=== PATIENT | female | born 1985 | race Caucasian/White ===

== ENCOUNTER 2017-09-23 12:38 | Inpatient (IN) ==
[2017-09-23] MEDS ORDERED: Td (TENIVAC) Vaccine 0.5 ML VIAL IM ONE (13:05)
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
[2017-09-23 13:36] LABS: Bilirubin,Urine Negative (Negative); Blood,Urine Negative (Negative); Clarity,Urine Cloudy (Clear); Color,Urine Yellow (Yellow); Glucose,Urine (UA) Normal (Normal); Ketones,Urine Negative (Negative); Leukocyte Esterase,Urine Small (Negative); Nitrite,Urine Negative (Negative); Protein,Urine Negative (Neg-Trace); Specific Gravity,Urine 1.023 (1.010-1.025); Urobilinogen,Urine Normal (Normal)
[2017-09-23 13:38] LABS: Bacteria,Urine Moderate per hpf (None-Few); Hyaline Casts,Urine None Seen per lpf (None-Few); RBC,Urine 0-3 per hpf (0-3); Squamous Epithelial Cell,Urine Many per lpf (None-Few)
[2017-09-23 13:40] LABS: Amphetamine Screen,Urine Negative ng/mL (Cutoff=1000); Barbiturate Screen,Urine Negative ng/mL (Cutoff=200); Benzodiazepines Screen,Urine Positive ng/mL (Cutoff=200); Cannabinoid Screen,Urine Negative ng/mL (Cutoff = 50); Cocaine Screen,Urine Negative ng/mL (Cutoff= 300); Opiate Screen,Urine Negative ng/mL (Cutoff=300); Phencyclidine Screen,Urine Negative ng/mL (Cutoff=25)
[2017-09-23 13:53] LABS: BUN/Creatinine Ratio 20 (6-26); Basophils # 0.1 K/mcL (0.0-0.2); Basophils % 0.9 %; Blood Urea Nitrogen 12 mg/dL (6-20); Calcium 9.2 mg/dL (8.6-10.3); Carbon Dioxide 23 mEq/L (23-29); Chloride 108 mEq/L (98-107); Eosinophils # 0.2 K/mcL (0.0-0.6); Eosinophils % 2.3 %; Glucose 112 mg/dL (70-105); Hematocrit 41.3 % (35.3-44.9); Immature Granulocytes % 0.2 % (0-4); Lymphocytes # 2.6 K/mcL (0.6-4.6); Lymphocytes % 29.9 %; Mean Corpuscular HGB Conc 33.9 g/dL (31.6-35.5); Mean Corpuscular Hemoglobin 31.4 pg (28.0-33.3); Mean Corpuscular Volume 92.6 fL (83.0-100.0); Mean Platelet Volume 10.4 fL (9.4-12.4); Monocytes # 0.4 K/mcL (0.0-1.3); Monocytes % 4.9 %; Neutrophils # 5.3 K/mcL (1.6-8.9); Osmolality,Calculated 287 (280-300); Platelet Count 295 K/mcL (140-400); Potassium 3.6 mEq/L (3.5-5.1); Red Blood Count 4.46 M/mcL (3.82-4.97); Segmented Neutrophils % 61.8 %; Sodium 138 mEq/L (136-145); eGFR For African Americans > 60 (> 60); eGFR For Non-African Americans > 60 (> 60)
[2017-09-23 13:59] LABS: Acetaminophen < 1.0 mcg/mL (10-30); Ethanol < 10 mg/dL (0-10); Salicylate < 5.0 mg/dL (15.0-30.0)
[2017-09-23 14:13] LABS: Thyroid Stimulating Hormone 1.652 mcIU/mL (0.340-5.600)
[2017-09-23] MEDS ORDERED: *HR* LORazepam 0.5 MG TABLET PO ONE (16:52)
[2017-09-23] MEDS ORDERED: traZODone 50 MG TABLET PO PRN (21:52)
[2017-09-23] MEDS ORDERED: MOM Conc 10 ML UD.LIQ PO PRN (21:52)
[2017-09-23] MEDS ORDERED: *HR* LORazepam 1 MG TABLET PO PRN (21:52)
[2017-09-23] MEDS ORDERED: Mag Hydrox/Al Hydrox/Simeth 30 ML UDC PO PRN (21:52)
[2017-09-23] MEDS ORDERED: *HR* LORazepam 2 MG/ML VIAL IM PRN (21:52)
[2017-09-23] MEDS ORDERED: Haloperidol Lactate 5 MG/ML VIAL IM PRN (21:52)
[2017-09-24] MEDS: Ibuprofen 400 MG TABLET PO PRN ×2 (07:06→11:35)
[2017-09-24] MEDS: Nicotine 14 MG PATCH.TD24 TD SCH (09:38)
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
[2017-09-24] MEDS ORDERED: Neosporin OINT 15 GM TUBE TP PRN (21:30)
[2017-09-24] MEDS: hydrOXYzine pamoate 25 MG CAPSULE PO PRN (22:08)
[2017-09-25] MEDS: Nicotine 14 MG PATCH.TD24 TD SCH (08:32)
--- NOTE | 2017-09-25 11:52 | Psychiatry Progress Note ---
Date of Encounter: 09/25/17 Time of Encounter: 11:00 Subjective Interval history: When I interviewed the patient she stated that she did get some sleep last night , but also had nightmares. She said the thing that was different this time with the Seroqeul, was after she woke up from a nightmare that she can go back to sleep within 10 to 15 minutes. "I got more sleep than I normally get". She did not feel too sedated when she woke up this morning was able to function without issue. She also took some Vistaril which helped with her anxiety. According to the patient, she took the regularly scheduled Seroqeul 25 mg last night and also take the extra 25 mg PRN which helped her to sleep. She would like to regularly schedule 50 mg at night to see if that continues to help. She stated that she still feeling depressed and has low energy but has no active thoughts of cutting on herself. She denies any auditory or visual hallucinations. She reports "my cutting is real bad". She is wearing a shirt that completely exposes her bilateral forearms. There are superficial cuts in various stages of healing but no signs of infection. I discussed with her after having reviewed previous reports and documentation that when she stopped the Lexapro, it she was only at 10 mg. I explained to her that the dose could have been doubled up to 20mg. Historically the Lexapro did help when she first got started on it and probably should have been increased to 20 instead of stopping it altogether. She was agreeable to restarting the Lexapro 10 mg to see if it helped again, and then taking it up to 15 or 20 mg once she stabilized and saw that she was without side effects. She denied any active suicidal or homicidal ideation. Objective: Exam Patient orientation: Yes Person, Yes Place, Yes Circumstance Level of alertness: Alert Patient appearance: Appropriate, Well Groomed, Well-nourished Additional observations: Smiling and laughing with someone on the phone prior to interview with me Behavior: anxious (mildly) Psychomotor activity: Normal Eye contact: Maintains Eye Contact Mood description: Depressed Affect description: congruent with mood Speech pattern: Normal rate, Normal rhythm, Normal tone, Appropriate Speech volume: Normal Thought process: Intact, Linear Thought content: Yes Intact Judgment: Fair Insight: Partial Results - Vital Signs Vital Signs: Temp Pulse Resp BP Pulse Ox 97.9 F 81 14 102/68 97 09/25/17 09:00 09/25/17 09:00 09/25/17 09:00 09/25/17 09:00 09/23/17 12:54 Assessment and Plan (1) Post traumatic stress disorder (PTSD) Current visit: Yes Status: Acute Risks, benefits, side effects, alternatives discussed w/pt: Yes Patient agreeable to treatment: Yes (2) Depression Current visit: No Status: Acute Plan: Continue hospitalization, Close observation, Suicide Precautions per unit protocol, Encourage participation in unit milieu, Group Therapy, Monitor sleep, Monitor appetite Risks, benefits, side effects, alternatives discussed w/pt: Yes (Restart Lexapro for mood) Patient agreeable to treatment: Yes Qualifiers: Depression Type: major depressive disorder Major depression recurrence: recurrent Active/Remission status: currently active Major depression episode severity: severe Psychotic features: without psychotic features Qualified Code(s): F33.2 - Major depressive disorder, recurrent severe without psychotic features Consult Discharge Plan - Plan Referrals: [facility] [Outside] - 10/08/17 11:00 am (The above appointment is with Pippa Khan for outpatient mental health counseling services. You will also see Nasra Moreira on 10/29/17 at 10:00am for outpatient psychiatric assessment and meedication management services.)
[2017-09-25] MEDS: hydrOXYzine pamoate 25 MG CAPSULE PO PRN (20:50)
[2017-09-25] MEDS: Ibuprofen 400 MG TABLET PO PRN (22:17)
[2017-09-26] MEDS: Nicotine 14 MG PATCH.TD24 TD SCH (08:32)
--- NOTE | 2017-09-26 09:03 | Psychiatry Progress Note ---
Date of Encounter: 09/26/17 Time of Encounter: 08:55 Subjective Interval history: Patient tells me that she is nervous today. She states that being the only female on the unit makes her feel very anxious and increases her vigilance. She does not feel safe currently. I asked her if something happened on the unit or if anybody said something to her or behaved inappropriately towards her , and she stated "no, just I do not like being the only female on the unit". She took her Seroquel last night. She said it took some time to fall asleep, but she did finally and got at least 6 hours. She is taking her Lexapro and denies any adverse side effects. She still is feeling depressed as well as anxious, but denies any auditory or visual hallucinations. She denies any thoughts of self-harm behavior. I discussed with her talking to the treatment team and potentially getting some individualized treatment for her that was not in a group with the men on the unit as well as potentially moving male patients down the one long hallway so that should she would be the only patient down the shorter hallway which might make her feel more safe. She stated she would appreciate that it was possible. Objective: Exam Patient orientation: Yes Person, Yes Time, Yes Place, Yes Circumstance Level of alertness: Sedated Patient appearance: Appropriate Additional observations: Sitting on the chair in my office with legs drawn up to her chest and her fingers of right hand covering her mouth. Very protective positioning and body posture. Behavior: anxious, guarded Psychomotor activity: Normal Eye contact: Maintains Eye Contact Mood description: Anxious Patient description of mood: nervous Affect description: congruent with mood, constricted Speech pattern: Normal rate, Normal rhythm, Normal tone Speech volume: Normal Thought process: Intact, Linear Thought content: Yes Intact Judgment: Fair Insight: Partial Results - Vital Signs Vital Signs: Temp Pulse Resp BP Pulse Ox 98 F 69 16 106/73 97 09/26/17 08:47 09/26/17 08:47 09/26/17 08:47 09/26/17 08:47 09/23/17 12:54 Assessment and Plan (1) Post traumatic stress disorder (PTSD) Current visit: Yes Status: Acute Plan: Continue hospitalization, Close observation, Encourage participation in unit milieu, Group Therapy, Monitor sleep Risks, benefits, side effects, alternatives discussed w/pt: Yes (continue currrent medications as written) Patient agreeable to treatment: Yes (2) Depression Current visit: No Status: Acute Plan: Continue hospitalization, Close observation, Suicide Precautions per unit protocol, Encourage participation in unit milieu, Group Therapy, Monitor sleep Risks, benefits, side effects, alternatives discussed w/pt: Yes (Restart Lexapro for mood) Patient agreeable to treatment: Yes Qualifiers: Depression Type: major depressive disorder Major depression recurrence: recurrent Active/Remission status: currently active Major depression episode severity: severe Psychotic features: without psychotic features Qualified Code(s): F33.2 - Major depressive disorder, recurrent severe without psychotic features Consult Discharge Plan - Plan Referrals: [facility] [Outside] - 10/08/17 11:00 am (The above appointment is with Pippa Khan for outpatient mental health counseling services. You will also see Nasra Moreira on 10/29/17 at 10:00am for outpatient psychiatric assessment and meedication management services.)
[2017-09-26] MEDS: Ibuprofen 400 MG TABLET PO PRN (11:42)
[2017-09-26] MEDS: hydrOXYzine pamoate 25 MG CAPSULE PO PRN (11:42)
[2017-09-27] MEDS: Nicotine 14 MG PATCH.TD24 TD SCH (08:39)
[2017-09-27 08:47] VITALS: BP 122/88
[2017-09-27] MEDS: hydrOXYzine pamoate 25 MG CAPSULE PO PRN (11:54)
--- NOTE | 2017-09-27 13:16 | Discharge Summary ---
Date of Encounter: 09/27/17 Time of Encounter: 13:00 Diagnosis - Discharge Diagnosis (1) Post traumatic stress disorder (PTSD) Status: Acute (2) Depression Status: Acute Qualifiers: Depression Type: major depressive disorder Major depression recurrence: recurrent Active/Remission status: currently active Major depression episode severity: severe Psychotic features: without psychotic features Qualified Code(s): F33.2 - Major depressive disorder, recurrent severe without psychotic features Medications - Discharge Medications Prescriptions: Escitalopram [Lexapro] 10 mg PO DAILY 30 Days #30 tablet hydrOXYzine pamoate [HydrOXYzine Pamoate] 25 mg PO TID PRN 30 Days #50 capsule PRN Reason: Anxiety Quetiapine Fumarate [Seroquel] 50 mg PO HS 30 Days #30 tablet Escitalopram [Lexapro] 10 mg PO DAILY 30 Days #30 tablet 09/27/17 [Rx] Quetiapine Fumarate [Seroquel] 50 mg PO HS 30 Days #30 tablet 09/27/17 [Rx] hydrOXYzine pamoate [HydrOXYzine Pamoate] 25 mg PO TID PRN 30 Days #50 capsule 09/27/17 [Rx] 3 Allergy/AdvReac Type Severity Reaction Status Date / Time tramadol [From Ultram] Allergy See Verified 06/22/17 21:29 Comments propoxyphene AdvReac Vomiting Verified 06/22/17 21:29 [From Darvocet-N] Provider Date of admission: 09/23/17 17:39 Primary care physician: PCP NONE Assessment and Plan - Patient/Caregiver Discharge Instructions Activity: resume usual activities as tolerated Diet: regular diet - Follow up Plan Follow up with: [facility] [Outside] - 10/08/17 11:00 am (The above appointment is with Pippa Khan for outpatient mental health counseling services. You will also see Nasra Moreira on 10/29/17 at 10:00am for outpatient psychiatric assessment and meedication management services.) Functional capacity at discharge: independent ambulation Overall status at discharge: Stable Disposition: Home, Self-Care Hospital Course Hospital course: Ms. Chen is a 32 year old female who was admitted via the emergency department for cutting on herself and having thoughts of suicide. Patient had stopped taking her medication secondary to feeling like they weren't effective. She has been decompensating over the previous couple of months since stopping them. She was restarted on Lexapro 10 mg PO Q day targeting her anxiety and her depression. She is having great deal of difficulty sleeping, experiencing anxiety and nightmares. She consented to starting Seroquel to help with her sleep, nervousness and anxiety. Early on, she isolated quite a bit her room secondary to being nervous around people on the unit. She did not feel safe at times, slowly adapted to the unit and starting to relax more and feel better on the medications. Her Seroquel was titrated up 100 mg PO Q HS. She had a few visits with her father and sister while on the unit and this made her feel much better. On the day of discharge, she stated I'm feeling a lot better today". She states that she had slept well the night before and got a whole 8 hours of sleep without waking up, no nightmares. She had taken some Benadryl to help with sleep and also possible akathisia from the Seroquel. She denied any suicidal/homicidal ideation. She denied any auditory or visual hallucinations. She stated her mood was stable she felt like she had energy; "feel like doing things again.... moving on with life". She states that she was feeling a little bit anxious about discharging, but was hopeful and would continue on her medications do outpatient follow-up schedule. Time spent discussing smoking cessation with patient: 3 to 10 minutes Does patient wish to continue nicotine replacement upon disc: No - Time Spent with Patient Total time spent providing and/or coordinating discharge services: 20 min Less than 30 minutes Quality - Multiple Antipsychotics Patient discharged on 2 or more antipsychotic medications: No Procedures - Procedures Procedures: Medication Management, Crisis Stabilization, Supportive Therapy, Group Therapy, Psychoeducational Therapy Mental Status Exam - Mental Status Exam Patient orientation: Yes Person, Yes Time, Yes Place, Yes Circumstance Level of alertness: Alert Patient appearance: Appropriate, Well Groomed Additional observations: Smiling Behavior: calm Psychomotor activity: Normal Eye contact: Maintains Eye Contact Mood description: Euthymic/stable Affect description: congruent with mood Speech pattern: Normal rate, Normal rhythm, Normal tone Speech Volume: Normal Thought process: Intact, Logical, Linear, Goal Oriented Thought Content: Yes Intact Judgment: Good Insight: Full
== END 2017-09-27 14:20 | disposition home or self-care (01) | DRG 755 ==
LOC: EMEROO 12:38 → 1ANU 17:39
PROVIDERS: ADMIT Psychiatry & Neurology Psychiatry; ATTEND Psychiatry & Neurology Psychiatry

== ENCOUNTER 2017-12-09 15:46 | Inpatient (IN) ==
--- NOTE | 2017-12-09 15:54 | Emergency Department Note ---
Disposition Clinical Impression: Suicidal ideation Disposition: Admitted As Inpatient Condition: Good Referrals: NONE,PCP [Non-Partnered Physician] - Forms: ED Satisfaction Letter Time of Disposition: 18:35 General Adult HPI - General Stated complaint: SI Time Seen by Provider: 12/09/17 15:53 Nursing Notes Reviewed: Yes Vital Signs Reviewed: Yes - History of Present Illness HPI Narrative: Female patient complaining of suicidal ideations. She does not have a plan. She has no other complaints at this time. Has been off her psych meds that she is unaware of the name of for the past 3 days. She is hearing voices that are telling her to hurt herself. - Related Data Previous Rx's Medication Instructions Recorded Escitalopram [Lexapro] 10 mg PO DAILY 30 Days #30 tablet 09/27/17 Quetiapine Fumarate [Seroquel] 50 mg PO HS 30 Days #30 tablet 09/27/17 hydrOXYzine pamoate [HydrOXYzine 25 mg PO TID PRN 30 Days #50 09/27/17 Pamoate] capsule Albuterol Sulfate [Albuterol 2 puff IH Q4HR PRN #1 hfa.aer.ad 12/09/17 Inhaler] predniSONE [PredniSONE] 40 mg PO DAILY #10 tablet 12/09/17 Allergies Allergy/AdvReac Type Severity Reaction Status Date / Time tramadol [From Ultram] Allergy See Verified 06/22/17 21:29 Comments propoxyphene AdvReac Vomiting Verified 06/22/17 21:29 [From Darvocet-N] All systems ED: reviewed and negative except as stated. Constitutional: Denies: fever, chills Cardiovascular: Denies: chest pain, syncope Respiratory: Denies: dyspnea Gastrointestinal: Denies: abdominal pain, nausea, vomiting, diarrhea Genitourinary: Denies: urgency, dysuria, frequency Psychiatric: Reports: suicidal thoughts, auditory hallucinations. Denies: homicidal thoughts, visual hallucinations Past Medical History - Past Medical History Attestation: Yes The following information was validated with the patient. Source: patient Medical history: Reports: arthritis Surgical history: Reports: , other Psychiatric history: Reports: anxiety, depression, prior suicide attempt, previous psychiatric hospitalization [employer] history: Reports: bilateral tubal ligation - Social History Smoking Status: Current some day smoker Smokeless Tobacco Status: No Alcohol use: Reports: rarely Drug use: Reports: marijuana, other Physical Exam - General Limitations: no limitations General appearance: alert, in no apparent distress - Head Head exam: atraumatic, normocephalic, normal inspection - Eye Eye exam: Present: normal appearance, PERRL, EOMI - ENT ENT exam: normal exam, mucous membranes moist - Neck Neck exam: Present: normal inspection, full ROM, trachea midline - Chest Chest inspection: Present: normal inspection, symmetric chest wall rise - Respiratory Respiratory exam: Present: normal lung sounds bilaterally. Absent: respiratory distress - Cardiovascular Cardiovascular exam: Present: regular rate, normal rhythm, normal heart sounds - Abdominal Exam Abdominal exam: Present: soft, Non-Tender. Absent: organomegaly - Extremities Exam Extremities exam: Present: normal inspection, full ROM, normal capillary refill. Absent: tenderness, pedal edema - Back Exam Back exam: Present: normal inspection, full ROM. Absent: tenderness - Neurological Exam Neurological exam: Present: alert, oriented X3 - Psychiatric Psychiatric exam: Present: suicidal ideation. Absent: homicidal ideation - Skin Skin exam: Present: warm, dry, intact, normal color Course Course Narrative: Female patient presenting to emergency complaining of hearing voices are telling her to kill herself. She does have a psychiatric history and is supposed to be on psychiatric medication she does not know what medication as she has not been taking it for the past 3 days. She states that it Does not help her. She has no other complaints at this time. She states that she was seen here earlier for shortness of breath however she is not short of breath at this time after she went home she got very anxious and has been she started hearing voices. She denies any visual hallucinations. She denies any homicidal ideations. We will get screening labs and have 1A evaluate her. - Reevaluation(s) Reevaluation #1: She will be admitted to the hospital. She is still pink slipped. Time: 18:34 Vital Signs Temperature 98.3 F 12/09/17 16:05 Pulse Rate 101 12/09/17 16:05 Respiratory Rate 18 12/09/17 16:05 Blood Pressure 152/99 12/09/17 16:05 O2 Sat by Pulse Oximetry 98 12/09/17 16:05 Temperature 98.3 F 12/09/17 16:05 Pulse Rate 101 12/09/17 16:05 Respiratory Rate 18 12/09/17 16:05 Blood Pressure 152/99 12/09/17 16:05 O2 Sat by Pulse Oximetry 98 12/09/17 16:05 Oxygen Delivery Oxygen Delivery Room Air Medical Decision Making - Medical Records Medical records reviewed: Yes I reviewed the patient's medical records. - Lab Data Lab results reviewed: Yes I reviewed the patient's lab results. Result diagrams: 12/09/17 16:07 12/09/17 16:07 Lab Results 12/09/17 12/09/17 12/09/17 Range/Units 15:57 15:57 16:07 WBC 9.0 (4.3-11.1) K/mcL RBC 4.77 (3.82-4.97) M/mcL Hgb 14.4 (11.5-15.4) g/dL Hct 42.6 (35.3-44.9) % MCV 89.3 (83.0-100.0) fL MCH 30.2 (28.0-33.3) pg MCHC 33.8 (31.6-35.5) g/dL RDW 11.8 (11.5-14.5) % Plt Count 310 (140-400) K/mcL MPV 10.1 (9.4-12.4) fL Immature Gran % 0.3 (0-4) % Seg Neutrophils % 87.5 % Lymphocytes % 10.6 % Monocytes % 1.3 % Eosinophils % 0.0 % Basophils % 0.3 % Neutrophils # 7.9 (1.6-8.9) K/mcL Lymphocytes # 1.0 (0.6-4.6) K/mcL Monocytes # 0.1 (0.0-1.3) K/mcL Eosinophils # 0.0 (0.0-0.6) K/mcL Basophils # 0.0 (0.0-0.2) K/mcL Sodium (136-145) mEq/L Potassium (3.5-5.1) mEq/L Chloride (98-107) mEq/L Carbon Dioxide (23-29) mEq/L BUN (6-20) mg/dL Creatinine (0.60-1.20) mg/dL Est GFR ( Amer) (> 60) Est GFR (Non-Af Amer) (> 60) BUN/Creatinine Ratio (6-26) Glucose (70-105) mg/dL Calculated Osmolality (280-300) Calcium (8.6-10.3) mg/dL Urine Color Yellow (Yellow) Urine Clarity Cloudy A (Clear) Urine pH 7.5 (5.0-8.0) pH Units Ur Specific [place] 1.011 (1.010-1.025) Urine Protein Negative (Neg-Trace) mg/dL Urine Glucose (UA) Normal (Normal) mg/dL Urine Ketones Negative (Negative) mg/dL Urine Blood Trace H (Negative) Urine Nitrite Negative (Negative) Urine Bilirubin Negative (Negative) Urine Urobilinogen Normal (Normal) mg/dL Ur Leukocyte Esterase Trace H (Negative) Urine Microscopic RBC 5-15 H (0-3) per hpf Urine Microscopic WBC 0-3 (0-3) per hpf Ur Squamous Epith Cells Many H (None-Few) per lpf Urine Bacteria None Seen (None-Few) per hpf Hyaline Casts None Seen (None-Few) per lpf Salicylates (15.0-30.0) mg/dL Urine Opiates Screen Negative (Lrsaob=920) ng/mL Acetaminophen (10-20) mcg/mL Ur Barbiturates Screen Negative (Hwjxkn=375) ng/mL Ur Phencyclidine Scrn Negative (Cutoff=25) ng/mL Ur Amphetamines Screen Negative (Ezjsme=8238) ng/mL U Benzodiazepines Scrn Negative (Zwraxc=537) ng/mL Urine Cocaine Screen Negative (Cutoff= 300) ng/mL U Marijuana (THC) Screen Negative (Cutoff = 50) ng/mL Ethyl Alcohol (Less than 10) mg/dL 12/09/17 Range/Units 16:07 WBC (4.3-11.1) K/mcL RBC (3.82-4.97) M/mcL Hgb (11.5-15.4) g/dL Hct (35.3-44.9) % MCV (83.0-100.0) fL MCH (28.0-33.3) pg MCHC (31.6-35.5) g/dL RDW (11.5-14.5) % Plt Count (140-400) K/mcL MPV (9.4-12.4) fL Immature Gran % (0-4) % Seg Neutrophils % % Lymphocytes % % Monocytes % % Eosinophils % % Basophils % % Neutrophils # (1.6-8.9) K/mcL Lymphocytes # (0.6-4.6) K/mcL Monocytes # (0.0-1.3) K/mcL Eosinophils # (0.0-0.6) K/mcL Basophils # (0.0-0.2) K/mcL Sodium 138 (136-145) mEq/L Potassium 3.5 (3.5-5.1) mEq/L Chloride 105 (98-107) mEq/L Carbon Dioxide 24 (23-29) mEq/L BUN 9 (6-20) mg/dL Creatinine 0.59 L (0.60-1.20) mg/dL Est GFR ( Amer) > 60 (> 60) Est GFR (Non-Af Amer) > 60 (> 60) BUN/Creatinine Ratio 15 (6-26) Glucose 119 H (70-105) mg/dL Calculated Osmolality 286 (280-300) Calcium 9.4 (8.6-10.3) mg/dL Urine Color (Yellow) Urine Clarity (Clear) Urine pH (5.0-8.0) pH Units Ur Specific [place] (1.010-1.025) Urine Protein (Neg-Trace) mg/dL Urine Glucose (UA) (Normal) mg/dL Urine Ketones (Negative) mg/dL Urine Blood (Negative) Urine Nitrite (Negative) Urine Bilirubin (Negative) Urine Urobilinogen (Normal) mg/dL Ur Leukocyte Esterase (Negative) Urine Microscopic RBC (0-3) per hpf Urine Microscopic WBC (0-3) per hpf Ur Squamous Epith Cells (None-Few) per lpf Urine Bacteria (None-Few) per hpf Hyaline Casts (None-Few) per lpf Salicylates < 2.5 L (15.0-30.0) mg/dL Urine Opiates Screen (Liovax=500) ng/mL Acetaminophen < 10 L (10-20) mcg/mL Ur Barbiturates Screen (Bindjx=752) ng/mL Ur Phencyclidine Scrn (Cutoff=25) ng/mL Ur Amphetamines Screen (Fkjguf=0834) ng/mL U Benzodiazepines Scrn (Aloizj=048) ng/mL Urine Cocaine Screen (Cutoff= 300) ng/mL U Marijuana (THC) Screen (Cutoff = 50) ng/mL Ethyl Alcohol < 10 (Less than 10) mg/dL
[2017-12-09 16:16] LABS: Bilirubin,Urine Negative (Negative); Blood,Urine Trace (Negative); Clarity,Urine Cloudy (Clear); Color,Urine Yellow (Yellow); Glucose,Urine (UA) Normal (Normal); Ketones,Urine Negative (Negative); Leukocyte Esterase,Urine Trace (Negative); Nitrite,Urine Negative (Negative); PH,Urine 7.5 pH Units (5.0-8.0); Protein,Urine Negative (Neg-Trace); Specific Gravity,Urine 1.011 (1.010-1.025); Urobilinogen,Urine Normal (Normal)
[2017-12-09 16:18] LABS: Bacteria,Urine None Seen per hpf (None-Few); Hyaline Casts,Urine None Seen per lpf (None-Few); Squamous Epithelial Cell,Urine Many per lpf (None-Few); WBC,Urine 0-3 per hpf (0-3)
[2017-12-09 16:20] LABS: Basophils % 0.3 %; Hematocrit 42.6 % (35.3-44.9); Hemoglobin 14.4 g/dL (11.5-15.4); Immature Granulocytes % 0.3 % (0-4); Lymphocytes % 10.6 %; Mean Corpuscular HGB Conc 33.8 g/dL (31.6-35.5); Mean Corpuscular Hemoglobin 30.2 pg (28.0-33.3); Mean Corpuscular Volume 89.3 fL (83.0-100.0); Mean Platelet Volume 10.1 fL (9.4-12.4); Monocytes # 0.1 K/mcL (0.0-1.3); Monocytes % 1.3 %; Neutrophils # 7.9 K/mcL (1.6-8.9); Platelet Count 310 K/mcL (140-400); Red Blood Count 4.77 M/mcL (3.82-4.97); Red Cell Distribution Width 11.8 % (11.5-14.5); Segmented Neutrophils % 87.5 %
[2017-12-09 16:29] LABS: Amphetamine Screen,Urine Negative ng/mL (Cutoff=1000); Barbiturate Screen,Urine Negative ng/mL (Cutoff=200); Benzodiazepines Screen,Urine Negative ng/mL (Cutoff=200); Cannabinoid Screen,Urine Negative ng/mL (Cutoff = 50); Cocaine Screen,Urine Negative ng/mL (Cutoff= 300); Opiate Screen,Urine Negative ng/mL (Cutoff=300); Phencyclidine Screen,Urine Negative ng/mL (Cutoff=25)
[2017-12-09 16:38] LABS: Acetaminophen < 10 mcg/mL (10-20)
[2017-12-09 16:42] LABS: BUN/Creatinine Ratio 15 (6-26); Blood Urea Nitrogen 9 mg/dL (6-20); Calcium 9.4 mg/dL (8.6-10.3); Carbon Dioxide 24 mEq/L (23-29); Chloride 105 mEq/L (98-107); Ethanol < 10 mg/dL (Less than 10); Glucose 119 mg/dL (70-105); Osmolality,Calculated 286 (280-300); Potassium 3.5 mEq/L (3.5-5.1); Salicylate < 2.5 mg/dL (15.0-30.0); Sodium 138 mEq/L (136-145); eGFR For African Americans > 60 (> 60); eGFR For Non-African Americans > 60 (> 60)
--- NOTE | 2017-12-09 17:11 | Emergency Department Note ---
Disposition Clinical Impression: Acute psychosis, Suicidal ideation Disposition: Admitted As Inpatient Condition: Fair Referrals: NONE,PCP [Primary Care Provider] - Forms: ED Satisfaction Letter Time of Disposition: 18:35 General Adult HPI - General Chief complaint: ED Psychiatric Symptoms Stated complaint: SI Time Seen by Provider: 12/09/17 15:53 Source: patient Limitations: no limitations - History of Present Illness Pain Scale: 7 - Related Data Previous Rx's Medication Instructions Recorded Albuterol Sulfate [Albuterol 2 puff IH Q4HR PRN #1 hfa.aer.ad 12/09/17 Inhaler] predniSONE [PredniSONE] 40 mg PO DAILY #10 tablet 12/09/17 Allergies Allergy/AdvReac Type Severity Reaction Status Date / Time tramadol [From Ultram] Allergy See Verified 12/09/17 18:21 Comments propoxyphene AdvReac Vomiting Verified 12/09/17 18:21 [From Darvocet-N] Past Medical History - Past Medical History Medical history: Reports: arthritis Surgical history: Reports: , other Psychiatric history: Reports: anxiety, depression, prior suicide attempt, previous psychiatric hospitalization [employer] history: Reports: bilateral tubal ligation - Social History Smoking Status: Current some day smoker Smokeless Tobacco Status: No Alcohol use: Reports: rarely Drug use: Reports: marijuana, other Physical Exam - General Limitations: no limitations General appearance: alert Course Vital Signs Temperature 98.3 F 12/09/17 16:05 Pulse Rate 101 12/09/17 16:05 Respiratory Rate 18 12/09/17 16:05 Blood Pressure 152/99 12/09/17 16:05 O2 Sat by Pulse Oximetry 98 12/09/17 16:05 Temperature 98.3 F 12/09/17 16:05 Pulse Rate 101 12/09/17 16:05 Respiratory Rate 18 12/09/17 16:05 Blood Pressure 152/99 12/09/17 16:05 O2 Sat by Pulse Oximetry 98 12/09/17 16:05 Oxygen Delivery Oxygen Delivery Room Air Medical Decision Making - Lab Data Result diagrams: 12/09/17 16:07 12/09/17 16:07 Lab Results 12/09/17 12/09/17 12/09/17 Range/Units 15:57 15:57 16:07 WBC 9.0 (4.3-11.1) K/mcL RBC 4.77 (3.82-4.97) M/mcL Hgb 14.4 (11.5-15.4) g/dL Hct 42.6 (35.3-44.9) % MCV 89.3 (83.0-100.0) fL MCH 30.2 (28.0-33.3) pg MCHC 33.8 (31.6-35.5) g/dL RDW 11.8 (11.5-14.5) % Plt Count 310 (140-400) K/mcL MPV 10.1 (9.4-12.4) fL Immature Gran % 0.3 (0-4) % Seg Neutrophils % 87.5 % Lymphocytes % 10.6 % Monocytes % 1.3 % Eosinophils % 0.0 % Basophils % 0.3 % Neutrophils # 7.9 (1.6-8.9) K/mcL Lymphocytes # 1.0 (0.6-4.6) K/mcL Monocytes # 0.1 (0.0-1.3) K/mcL Eosinophils # 0.0 (0.0-0.6) K/mcL Basophils # 0.0 (0.0-0.2) K/mcL Sodium (136-145) mEq/L Potassium (3.5-5.1) mEq/L Chloride (98-107) mEq/L Carbon Dioxide (23-29) mEq/L BUN (6-20) mg/dL Creatinine (0.60-1.20) mg/dL Est GFR ( Amer) (> 60) Est GFR (Non-Af Amer) (> 60) BUN/Creatinine Ratio (6-26) Glucose (70-105) mg/dL Calculated Osmolality (280-300) Calcium (8.6-10.3) mg/dL Urine Color Yellow (Yellow) Urine Clarity Cloudy A (Clear) Urine pH 7.5 (5.0-8.0) pH Units Ur Specific [place] 1.011 (1.010-1.025) Urine Protein Negative (Neg-Trace) mg/dL Urine Glucose (UA) Normal (Normal) mg/dL Urine Ketones Negative (Negative) mg/dL Urine Blood Trace H (Negative) Urine Nitrite Negative (Negative) Urine Bilirubin Negative (Negative) Urine Urobilinogen Normal (Normal) mg/dL Ur Leukocyte Esterase Trace H (Negative) Urine Microscopic RBC 5-15 H (0-3) per hpf Urine Microscopic WBC 0-3 (0-3) per hpf Ur Squamous Epith Cells Many H (None-Few) per lpf Urine Bacteria None Seen (None-Few) per hpf Hyaline Casts None Seen (None-Few) per lpf Salicylates (15.0-30.0) mg/dL Urine Opiates Screen Negative (Ozdcql=649) ng/mL Acetaminophen (10-20) mcg/mL Ur Barbiturates Screen Negative (Ozkros=881) ng/mL Ur Phencyclidine Scrn Negative (Cutoff=25) ng/mL Ur Amphetamines Screen Negative (Hufyhb=7650) ng/mL U Benzodiazepines Scrn Negative (Xxmxsg=627) ng/mL Urine Cocaine Screen Negative (Cutoff= 300) ng/mL U Marijuana (THC) Screen Negative (Cutoff = 50) ng/mL Ethyl Alcohol (Less than 10) mg/dL 12/09/17 Range/Units 16:07 WBC (4.3-11.1) K/mcL RBC (3.82-4.97) M/mcL Hgb (11.5-15.4) g/dL Hct (35.3-44.9) % MCV (83.0-100.0) fL MCH (28.0-33.3) pg MCHC (31.6-35.5) g/dL RDW (11.5-14.5) % Plt Count (140-400) K/mcL MPV (9.4-12.4) fL Immature Gran % (0-4) % Seg Neutrophils % % Lymphocytes % % Monocytes % % Eosinophils % % Basophils % % Neutrophils # (1.6-8.9) K/mcL Lymphocytes # (0.6-4.6) K/mcL Monocytes # (0.0-1.3) K/mcL Eosinophils # (0.0-0.6) K/mcL Basophils # (0.0-0.2) K/mcL Sodium 138 (136-145) mEq/L Potassium 3.5 (3.5-5.1) mEq/L Chloride 105 (98-107) mEq/L Carbon Dioxide 24 (23-29) mEq/L BUN 9 (6-20) mg/dL Creatinine 0.59 L (0.60-1.20) mg/dL Est GFR ( Amer) > 60 (> 60) Est GFR (Non-Af Amer) > 60 (> 60) BUN/Creatinine Ratio 15 (6-26) Glucose 119 H (70-105) mg/dL Calculated Osmolality 286 (280-300) Calcium 9.4 (8.6-10.3) mg/dL Urine Color (Yellow) Urine Clarity (Clear) Urine pH (5.0-8.0) pH Units Ur Specific [place] (1.010-1.025) Urine Protein (Neg-Trace) mg/dL Urine Glucose (UA) (Normal) mg/dL Urine Ketones (Negative) mg/dL Urine Blood (Negative) Urine Nitrite (Negative) Urine Bilirubin (Negative) Urine Urobilinogen (Normal) mg/dL Ur Leukocyte Esterase (Negative) Urine Microscopic RBC (0-3) per hpf Urine Microscopic WBC (0-3) per hpf Ur Squamous Epith Cells (None-Few) per lpf Urine Bacteria (None-Few) per hpf Hyaline Casts (None-Few) per lpf Salicylates < 2.5 L (15.0-30.0) mg/dL Urine Opiates Screen (Ofvfxz=552) ng/mL Acetaminophen < 10 L (10-20) mcg/mL Ur Barbiturates Screen (Thpwbj=722) ng/mL Ur Phencyclidine Scrn (Cutoff=25) ng/mL Ur Amphetamines Screen (Kjznrp=9201) ng/mL U Benzodiazepines Scrn (Ahxcwt=778) ng/mL Urine Cocaine Screen (Cutoff= 300) ng/mL U Marijuana (THC) Screen (Cutoff = 50) ng/mL Ethyl Alcohol < 10 (Less than 10) mg/dL Critical Care Time Critical Care Time: No Attestation Statement - Attestation Attestation: I examined this patient and my medical decision-making was reviewed with the Resident Physician. I agree with the documented findings, disposition and treatment plan as described except to the extent set forth below. Patient to ED with suicidal thoughts and auditory hallucinations. Patient laying in bed in no distress, and cooperative on our evaluation. Plan. Medical clearance and evaluation by 1A. Patient has been medically cleared. Admitted to psych.
[2017-12-09] MEDS ORDERED: *HR* LORazepam 2 MG/ML VIAL IM PRN (18:56)
[2017-12-09] MEDS ORDERED: traZODone 50 MG TABLET PO PRN (18:56)
[2017-12-09] MEDS ORDERED: *HR* LORazepam 1 MG TABLET PO PRN (18:56)
[2017-12-09] MEDS ORDERED: MOM Conc 10 ML UD.LIQ PO PRN (18:56)
[2017-12-09] MEDS ORDERED: Haloperidol Lactate 5 MG/ML VIAL IM PRN (18:56)
[2017-12-09] MEDS ORDERED: Mag Hydrox/Al Hydrox/Simeth 30 ML UDC PO PRN (18:56)
[2017-12-09] MEDS: hydrOXYzine pamoate 25 MG CAPSULE PO PRN (22:01)
[2017-12-09] MEDS: Acetaminophen 325 MG TABLET PO PRN (22:30)
[2017-12-10] MEDS: predniSONE 20 MG TABLET PO SCH (08:47)
[2017-12-10] MEDS: Nicotine 21 MG PATCH.TD24 TD SCH (08:47)
--- NOTE | 2017-12-10 13:54 | Psychiatry History & Physical ---
Date of Encounter: 12/10/17 Time of Encounter: 13:45 History of Present Illness Patient Stated Chief Complaint: I was cutting my arms, I heard voices, stopped my meds 3 days ago Medicare Admission Attestation: For traditional Medicare patients the provided hospital inpatient services are reasonable and necessary and in the case of services not specified as inpatient -only under 42 CFR 419.22 (n), that they are appropriately provided as inpatient services in accordance 42 CFR 412.3. For Critical Access Hospital the patient may reasonably be expected to be discharged or transferred to a hospital within 96 hours after admission to the Critical Access Hospital. Admitted From: Emergency Dept Plans for Post Hospital Care: Home History of Present Illness: Ms. Chen is a 32 year old female The patient is a 32-year-old white female. She is seeking a divorce. She currently lives with friends but is homeless. Chief complaint the put me on no meds and they help me sleep. I stopped them 3 days ago. I lost the place that was staying I have been fighting with the voices and now have no sleep. History of present illness:. The patient had some suicidal ideation and no specific plans but used to cut herself or cut her wrist. In some ways this was an effort to stable voices. Nonetheless the patient has previously tried to hang herself and tried to jump in front of a semitruck. This tended to occur when she was young. The patient feels safe around people agreed to come into the hospital. She was brought in as an involuntary patient. The patient came with her fiance and his mother. All 3 are homeless. The patient's fiance is a gentleman who was later seen in the emergency room's sent for outpatient treatment. The patient was last in [facility] October 29 and there the psychiatrist recommended a course of treatment. The patient cannot remember the medicine she was prescribed she says that Seroquel makes her worse and she was on the medicine for mood and psychosis. She was on a medicine for mood and sleep but she cannot remember the name of all she can tell me is that 300 mg of trazodone helps her sleep. She has never been on lithium she cannot recall being on Depakote or lithium she been on lamotrigine and that did not help carbamazepine may have helped a little bit risperidone did not help. The patient reports 3 days of voices. The louder and then there is a command to kill herself. These are men's voices they tend argue with each other they tell her that she is worthless. The patient's previously been evaluated for schizophrenia also diagnosed with anxiety. Vistaril stopped helping. She is on carbamazepine and it stopped helping. The patient has significant past alcohol problem but not a current problem. The patient is clean but likes being on marijuana F 11.1. She has missed abused or otherwise diverted Percocets after 12.1. 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 The patient has forged children. She reports that these are staying with their father. The patient reports this is her fourth or fifth hospitalization in 1 day. Patient has been diagnosed with bipolar 2 and a previous hospitalization by Dr. Cox. The patient has never been to drug or alcohol rehabilitation is not been in . When in the ER the patient was being evaluated for bronchitis earlier. Past medical history: Tubal ligation section and removal of a knot on the back of the scalp and a removal of a lump on the left arm. Illnesses migraine headaches current bronchitis. Allergies tramadol Darvocet she is P4 G for ABG 0 status post tubal ligation. 's family history is significant for a paternal grand mother with schizophrenia. Her father was reported to have schizophrenia a sister is reported to have schizophrenia. Father also had alcohol on his been clean for 9 years. A maternal uncle in [place] try to kill himself and was reported to have schizophrenia. Sr. with schizophrenia is not on any medicines and is now sober she may have had trouble with alcohol or drugs. There is no history of completed suicide in the family according to the patient. Social history: Patient grew up in [place] she went to school until 11th grade. She dropped out as this was time for her second child. The patient worked some jobs but primarily short-term she was at age 20 was remain for the past 12 years although she has been for the last 3. The patient has been getting engaged for 7 months but she has not sure that content. The review of systems. Patient supposed for glasses for astigmatism she is nearsighted. She says her hearing is "too good". She has dental problem and a chipped tooth. The patient is a smoker and has bronchitis. No stomach problems but she has had constipation menstrual cramps. She had arthritis before the accident. Her primary care physician is Dr. Edwards The patient endorsed depressive symptoms low self-esteem diminished interest guilt diminished energy concentration decreased sleep and diminished eating with good appetite suicidal ideation and morbid thinking. She does have a history of distractibility decreased need for sleep flight of ideas excessive cleaning and risky behavior that is riding without a seatbelt Past Med Surg Social Fam HX - Past Medical History Source: patient Medical history: arthritis, migraine - Past Psychiatric History Psychiatric history: Reports: bipolar, PTSD, schizophrenia, previous psychiatric hospitalization Family psychiatric history: Yes Family History of Suicide: None - Past Surgical History Surgical History: - Social History Smoking Status: Current some day smoker Smokeless Tobacco Status: No Alcohol use: none Drug use: marijuana Medications & Allergies Albuterol Sulfate [Albuterol Inhaler] 2 puff IH Q4HR PRN #1 hfa.aer.ad 12/09/17 [Rx] predniSONE [PredniSONE] 40 mg PO DAILY #10 tablet 12/09/17 [Rx] 3 Allergy/AdvReac Type Severity Reaction Status Date / Time tramadol [From Ultram] Allergy See Verified 12/09/17 18:21 Comments propoxyphene AdvReac Vomiting Verified 12/09/17 18:21 [From Darvocet-N] Review of Systems Constitutional: Denies: fever, chills, weakness, weight change Ears, Nose, Throat: Denies: ear pain, throat pain, dental pain, hearing loss, congestion Cardiovascular: Reports: syncope Respiratory: Reports: cough, sputum production Gastrointestinal: Reports: constipation Genitourinary female: Reports: other Musculoskeletal: Reports: joint pain Integumentary: Denies: rash, lesions, pruritus Neurological: Reports: headache Psychiatric: Reports: abnormal sleep pattern, suicidal ideation, auditory hallucinations, difficulty concentrating Endocrine: Denies: fatigue, heat or cold intolerance Hematologic/Lymphatic: Denies: easy bruising, lymphadenopathy Allergic/Immunologic: Denies: urticaria, itchy eyes Exam - HEENT Head exam IM: Present: atraumatic, normal inspection, normocephalic Eye exam IM: Present: EOMI, normal appearance ENT exam IM: Present: mucous membranes moist, normal exam - Neurological Neurological exam: Present: CN II-XII intact - Respiratory Respiratory exam IM: Present: wheezes - GI/Abdominal GI/Abdominal exam IM: Present: normal bowel sounds - Extremities Extremities exam IM: Present: full ROM - Skin Skin exam IM: Present: abrasion - Constitutional Vitals: Temp Pulse Resp BP Pulse Ox 97.9 F 85 16 117/88 98 12/10/17 08:22 12/10/17 08:22 12/10/17 08:22 12/10/17 08:22 12/09/17 16:05 General appearance: age & developmentally appropriate - Musculoskeletal Gait: normal Station: relaxed Strength & Tone: normal for patient - Psychiatric Patient Orientation: Yes Person, Yes Time, Yes Place, Yes Circumstance Level of alertness: Alert Behavior: anxious, tearful Psychomotor activity: Slowed Eye Contact: Minimal Contact Mood Description: Depressed Affect description: dysphoric Speech Volume: Soft/Quiet Speech pattern: normal rate, normal rhythm Language & Vocabulary: grade school level Thought Process: Intact Thought Content: Yes Suicidal ideation Perceptual Disturbances: Yes Auditory hallucinations Attention Span Ability: Capable of Sustained Attention Memory Description: Grossly Intact Patient Reliability: Questionable Historian Fund of knowledge: Yes below average Intelligence Estimate: Below Average Judgment: Limited Insight: Minimal Results - Labs Labs: Laboratory Last Values WBC 9.0 K/mcL (4.3-11.1) 12/09/17 16:07 RBC 4.77 M/mcL (3.82-4.97) 12/09/17 16:07 Hgb 14.4 g/dL (11.5-15.4) 12/09/17 16:07 Hct 42.6 % (35.3-44.9) 12/09/17 16:07 MCV 89.3 fL (83.0-100.0) 12/09/17 16:07 MCH 30.2 pg (28.0-33.3) 12/09/17 16:07 MCHC 33.8 g/dL (31.6-35.5) 12/09/17 16:07 RDW 11.8 % (11.5-14.5) 12/09/17 16:07 Plt Count 310 K/mcL (140-400) 12/09/17 16:07 MPV 10.1 fL (9.4-12.4) 12/09/17 16:07 Immature Gran % 0.3 % (0-4) 12/09/17 16:07 Seg Neutrophils % 87.5 % 12/09/17 16:07 Lymphocytes % 10.6 % 12/09/17 16:07 Monocytes % 1.3 % 12/09/17 16:07 Eosinophils % 0.0 % 12/09/17 16:07 Basophils % 0.3 % 12/09/17 16:07 Neutrophils # 7.9 K/mcL (1.6-8.9) 12/09/17 16:07 Lymphocytes # 1.0 K/mcL (0.6-4.6) 12/09/17 16:07 Monocytes # 0.1 K/mcL (0.0-1.3) 12/09/17 16:07 Eosinophils # 0.0 K/mcL (0.0-0.6) 12/09/17 16:07 Basophils # 0.0 K/mcL (0.0-0.2) 12/09/17 16:07 Sodium 138 mEq/L (136-145) 12/09/17 16:07 Potassium 3.5 mEq/L (3.5-5.1) 12/09/17 16:07 Chloride 105 mEq/L (98-107) 12/09/17 16:07 Carbon Dioxide 24 mEq/L (23-29) 12/09/17 16:07 BUN 9 mg/dL (6-20) 12/09/17 16:07 Creatinine 0.59 mg/dL (0.60-1.20) L 12/09/17 16:07 Est GFR ( Amer) > 60 (> 60) 12/09/17 16:07 Est GFR (Non-Af Amer) > 60 (> 60) 12/09/17 16:07 BUN/Creatinine Ratio 15 (6-26) 12/09/17 16:07 Glucose 119 mg/dL (70-105) H 12/09/17 16:07 Calculated Osmolality 286 (280-300) 12/09/17 16:07 Calcium 9.4 mg/dL (8.6-10.3) 12/09/17 16:07 Urine Color Yellow (Yellow) 12/09/17 15:57 Urine Clarity Cloudy (Clear) A 12/09/17 15:57 Urine pH 7.5 pH Units (5.0-8.0) 12/09/17 15:57 Ur Specific [place] 1.011 (1.010-1.025) 12/09/17 15:57 Urine Protein Negative mg/dL (Neg-Trace) 12/09/17 15:57 Urine Glucose (UA) Normal mg/dL (Normal) 12/09/17 15:57 Urine Ketones Negative mg/dL (Negative) 12/09/17 15:57 Urine Blood Trace (Negative) H 12/09/17 15:57 Urine Nitrite Negative (Negative) 12/09/17 15:57 Urine Bilirubin Negative (Negative) 12/09/17 15:57 Urine Urobilinogen Normal mg/dL (Normal) 12/09/17 15:57 Ur Leukocyte Esterase Trace (Negative) H 12/09/17 15:57 Urine Microscopic RBC 5-15 per hpf (0-3) H 12/09/17 15:57 Urine Microscopic WBC 0-3 per hpf (0-3) 12/09/17 15:57 Ur Squamous Epith Cells Many per lpf (None-Few) H 12/09/17 15:57 Urine Bacteria None Seen per hpf (None-Few) 12/09/17 15:57 Hyaline Casts None Seen per lpf (None-Few) 12/09/17 15:57 Salicylates < 2.5 mg/dL (15.0-30.0) L 12/09/17 16:07 Urine Opiates Screen Negative ng/mL (Eydkqv=486) 12/09/17 15:57 Acetaminophen < 10 mcg/mL (10-20) L 12/09/17 16:07 Ur Barbiturates Screen Negative ng/mL (Mshmkc=431) 12/09/17 15:57 Ur Phencyclidine Scrn Negative ng/mL (Cutoff=25) 12/09/17 15:57 Ur Amphetamines Screen Negative ng/mL (Ydlwpi=8042) 12/09/17 15:57 U Benzodiazepines Scrn Negative ng/mL (Pgpgpc=949) 12/09/17 15:57 Urine Cocaine Screen Negative ng/mL (Cutoff= 300) 12/09/17 15:57 U Marijuana (THC) Screen Negative ng/mL (Cutoff = 50) 12/09/17 15:57 Ethyl Alcohol < 10 mg/dL (Less than 10) 12/09/17 16:07 Assessment and Plan (1) Migraine Current visit: Yes Status: Acute Plan: Admit inpatient for safety and stabilization, Close observation, Monitor sleep Risks, benefits, side effects, alternatives discussed w/pt: Yes Patient agreeable to treatment: Yes Plans for Post Hospital Care: Home Estimated Length of Stay (Days): 15 Qualifiers: Migraine type: without aura Status migrainosus presence: without status migrainosus Intractability: not intractable Qualified Code(s): G43.009 - Migraine without aura, not intractable, without status migrainosus (2) Bipolar II disorder Current visit: No Status: Acute Plan: Admit inpatient for safety and stabilization, Close observation, Suicide Precautions per unit protocol, Secure weapons Risks, benefits, side effects, alternatives discussed w/pt: Yes Patient agreeable to treatment: Yes Plans for Post Hospital Care: Home Estimated Length of Stay (Days): 15 (3) Post traumatic stress disorder (PTSD) Current visit: No Status: Acute Plan: Admit inpatient for safety and stabilization, Close observation, Group Therapy, Monitor sleep, Monitor appetite Risks, benefits, side effects, alternatives discussed w/pt: Yes Patient agreeable to treatment: Yes Plans for Post Hospital Care: Home (4) Bronchitis Current visit: No Status: Acute Plan: Admit inpatient for safety and stabilization, Monitor appetite Risks, benefits, side effects, alternatives discussed w/pt: Yes Patient agreeable to treatment: Yes
[2017-12-10] MEDS: Acetaminophen 325 MG TABLET PO PRN (20:28)
[2017-12-10] MEDS: traZODone 50 MG TABLET PO SCH (20:51)
[2017-12-11] MEDS: Nicotine 21 MG PATCH.TD24 TD SCH (08:09)
[2017-12-11] MEDS: predniSONE 20 MG TABLET PO SCH (08:09)
--- NOTE | 2017-12-11 13:08 | Psychiatry Progress Note ---
Date of Encounter: 12/11/17 Time of Encounter: 10:15 Subjective Interval history: Today the patient met with me. She was able to talk about how she was doing. The patient still cannot recall what medicine she was on but does recall being on carbamazepine in the past. She says that she has not been on lithium in the past been on Depakote in the past. The patient will be seen for interview for [facility]on[facility] Almonte she is in outpatient and is familiar with her outpatient services. She has never been there for respite stay but could qualify. The patient is tolerated the intake from this morning. I discussed side effects with her. The patient is willing to consider the injection in vague assist Prudence. The patient and I discussed the minimal drug interaction between an vague and carbamazepine versus why shows this. The patient continues to have voices and to be troubled by mood disturbance Review of Systems Psychiatric: Reports: abnormal sleep pattern, suicidal ideation, auditory hallucinations, difficulty concentrating, mood swings Results - Vital Signs Vital Signs: Temp Pulse Resp BP Pulse Ox 98.2 F 88 16 109/78 98 12/11/17 08:42 12/11/17 08:42 12/11/17 08:42 12/11/17 08:42 12/09/17 16:05 Assessment and Plan (1) Migraine Current visit: Yes Status: Acute Plan: Continue hospitalization, Close observation, Monitor appetite Risks, benefits, side effects, alternatives discussed w/pt: Yes Patient agreeable to treatment: Yes Qualifiers: Migraine type: without aura Status migrainosus presence: without status migrainosus Intractability: not intractable Qualified Code(s): G43.009 - Migraine without aura, not intractable, without status migrainosus (2) Bipolar II disorder Current visit: No Status: Acute Plan: Continue hospitalization, Close observation Risks, benefits, side effects, alternatives discussed w/pt: Yes Patient agreeable to treatment: Yes (3) Post traumatic stress disorder (PTSD) Current visit: No Status: Acute Plan: Continue hospitalization, Encourage participation in unit milieu, Monitor sleep, Monitor appetite Risks, benefits, side effects, alternatives discussed w/pt: Yes Patient agreeable to treatment: Yes (4) Bronchitis Current visit: No Status: Acute Plan: Continue hospitalization, Close observation Risks, benefits, side effects, alternatives discussed w/pt: Yes Patient agreeable to treatment: Yes Consult Discharge Plan - Plan Referrals: NONE,PCP [Primary Care Provider] - Psychiatry Exam - Constitutional Vitals: Temp Pulse Resp BP Pulse Ox 98.2 F 88 16 109/78 98 12/11/17 08:42 12/11/17 08:42 12/11/17 08:42 12/11/17 08:42 12/09/17 16:05 General appearance: age & developmentally appropriate, unkempt - Musculoskeletal Gait: normal Station: other Strength & Tone: normal for patient - Psychiatric Patient Orientation: Yes Person, Yes Time, Yes Place, Yes Circumstance Level of alertness: Alert Behavior: anxious Psychomotor activity: Slowed Eye Contact: Maintains Eye Contact Mood Description: Anxious Affect description: dysphoric Speech Volume: Soft/Quiet Speech pattern: normal rate, normal rhythm Language & Vocabulary: consistent with education Thought Process: Logical, Linear Thought Content: Yes Suicidal ideation Perceptual Disturbances: Yes Auditory hallucinations Attention Span Ability: Capable of Focused Attention Memory Description: Immediate Intact, Recent Impaired, Remote Intact Patient Reliability: Questionable Historian Fund of knowledge: Yes below average Intelligence Estimate: Average Judgment: Limited Insight: Minimal
[2017-12-11] MEDS: carBAMazepine 200 MG TABLET PO SCH (20:33)
[2017-12-11] MEDS: traZODone 50 MG TABLET PO SCH (21:16)
[2017-12-12] MEDS: Nicotine 21 MG PATCH.TD24 TD SCH (08:25)
[2017-12-12] MEDS: predniSONE 20 MG TABLET PO SCH (08:26)
[2017-12-12] MEDS: carBAMazepine 200 MG TABLET PO SCH ×2 (08:26→21:05)
--- NOTE | 2017-12-12 10:49 | Psychiatry Progress Note ---
Date of Encounter: 12/12/17 Time of Encounter: 10:45 Subjective Interval history: This patient has been on the unit. She did not voice homicidal ideation or suicidal ideation but still hears voices these are male voices are sometimes disturbing. Patient still feels depressed and when she went to bed last night she started having crying spells for no apparent reason. The patient did sleep 7.5 hours last night today she reports that she is tolerating the medicine in [place] but she is not sure about the medicine Tegretol since she took one dose last night and started having crying spells. The patient did talk to her children's father. They spoke on the phone. The patient is worried about her children and sometimes they do not understand why she is in hospital. She given a variety of reasons why she cannot be with them. The patient has a son who will turn 12 tomorrow. The patient notes that I went home she tries to watch TV walk draw or have conversations with others in order to reduce the spell of the voices. The patient agreed to an increase in the medicine in [place] once again the side effects were discussed. The possibility of an vague assist Prudence was discussed with the patient The patient was evaluated by [facility]. It is not clear that a bed is immediately available but further adjustment of the carbamazepine may be necessary and I will order blood work for December 16. This should be close to steady state. Carbamazepine level of 8.8 or above may be desirable to control bipolar disorder. The patient may benefit from having a CBC and liver function tests as recommended and the blood monitoring for carbamazepine or Tegretol. Review of Systems Psychiatric: Reports: abnormal sleep pattern, suicidal ideation, auditory hallucinations, difficulty concentrating, mood swings Results - Vital Signs Vital Signs: Temp Pulse Resp BP Pulse Ox 98.6 F 84 16 119/83 94 12/11/17 19:50 12/11/17 19:50 12/11/17 19:50 12/11/17 19:50 12/11/17 19:50 Assessment and Plan (1) Bipolar II disorder Current visit: No Status: Acute Plan: Continue hospitalization, Close observation, Encourage participation in unit milieu, Secure weapons Risks, benefits, side effects, alternatives discussed w/pt: Yes Patient agreeable to treatment: Yes (2) Post traumatic stress disorder (PTSD) Current visit: No Status: Acute Plan: Continue hospitalization, Group Therapy, Monitor sleep, Family/Supportive other meeting Risks, benefits, side effects, alternatives discussed w/pt: Yes Patient agreeable to treatment: Yes (3) Migraine Current visit: Yes Status: Acute Plan: Continue hospitalization, Suicide Precautions per unit protocol, Group Therapy, Monitor sleep Risks, benefits, side effects, alternatives discussed w /pt: Yes Patient agreeable to treatment: Yes Qualifiers: Migraine type: without aura Status migrainosus presence: without status migrainosus Intractability: not intractable Qualified Code(s): G43.009 - Migraine without aura, not intractable, without status migrainosus (4) Bronchitis Current visit: No Status: Acute Plan: Continue hospitalization Risks, benefits, side effects, alternatives discussed w/pt: Yes Patient agreeable to treatment: Yes Consult Discharge Plan - Plan Referrals: [facility] [Outside] - 12/17/17 10:00 am (The above appointment is with Pippa Khan for outpatient mental health counseling services. You will also see Nasra Moreira for outpatient psychiatric assessment and medication management services on 01/07/2018 at 3:30 PM.) Andreea Marin [Advanced Practice Nurse] - 12/18/17 1:10 pm (The above appointment is with Andreea Marin CNP, at Primary Care within [facility]. This appointment is to establish you with a primary care provider. Please arrive 15 minutes early to complete paperwork. Please bring your insurance card, photo ID and list of current medications to your first appointment. The above appointment(s) reflects first availability. You may contact the office regularly to check for cancellations that may allow you to be seen sooner.) Psychiatry Exam - Constitutional Vitals: Temp Pulse Resp BP Pulse Ox 98.6 F 84 16 119/83 94 12/11/17 19:50 12/11/17 19:50 12/11/17 19:50 12/11/17 19:50 12/11/17 19:50 General appearance: age & developmentally appropriate, unkempt - Musculoskeletal Gait: slow Strength & Tone: normal for patient - Psychiatric Patient Orientation: Yes Person, Yes Time, Yes Place, Yes Circumstance Level of alertness: Alert Behavior: calm Psychomotor activity: Slowed Eye Contact: Maintains Eye Contact Mood Description: Depressed, Anxious Affect description: anxious Speech Volume: Soft/Quiet Speech pattern: normal rate, normal rhythm Language & Vocabulary: consistent with education Thought Process: Logical Thought Content: Yes Suicidal ideation Perceptual Disturbances: Yes Auditory hallucinations Attention Span Ability: Capable of Sustained Attention Memory Description: Immediate Intact, Recent Impaired, Remote Impaired Patient Reliability: Questionable Historian Fund of knowledge: Yes below average Intelligence Estimate: Below Average Judgment: Limited Insight: Minimal
[2017-12-12] MEDS: traZODone 50 MG TABLET PO SCH (21:06)
[2017-12-13] MEDS: Nicotine 21 MG PATCH.TD24 TD SCH (08:37)
[2017-12-13] MEDS: carBAMazepine 200 MG TABLET PO SCH ×2 (08:38→21:26)
[2017-12-13] MEDS: predniSONE 20 MG TABLET PO SCH (08:38)
--- NOTE | 2017-12-13 12:08 | Psychiatry Progress Note ---
Date of Encounter: 12/13/17 Time of Encounter: 12:00 Subjective Interval history: The patient came to see me she has reported that the voices are less bothersome. They are less intrusive and she has tolerated the INVega. The patient been on Tegretol or carbamazepine this is helped. The patient has not had a migraine headache in this period of time. She was able to sleep 7 hours last night and well. The patient has signed a voluntary form and the plan is for her to go to [facility] on Saturday. She did hear from her alton Tejada who may come to visit. The patient plans to continue with follow -up. She was interested in continuing Tegretol through 2017 and is willing to take an INVEGA SUSTENNA on an outpatient basis as she has a history of noncompliance. The patient will have laboratory studies done on Saturday and these will be reevaluated Review of Systems Neurological: Reports: headache Psychiatric: Reports: auditory hallucinations, difficulty concentrating, mood swings Results - Vital Signs Vital Signs: Temp Pulse Resp BP Pulse Ox 97.1 F L 94 16 109/76 94 12/13/17 09:00 12/13/17 09:00 12/13/17 09:00 12/13/17 09:00 12/11/17 19:50 Assessment and Plan (1) Bipolar II disorder Current visit: No Status: Acute Plan: Continue hospitalization, Close observation, Suicide Precautions per unit protocol, Monitor sleep Risks, benefits, side effects, alternatives discussed w/pt: Yes Patient agreeable to treatment: Yes (2) Post traumatic stress disorder (PTSD) Current visit: No Status: Acute Plan: Continue hospitalization, Encourage participation in unit milieu, Monitor sleep Risks, benefits, side effects, alternatives discussed w/pt: Yes Patient agreeable to treatment: Yes (3) Bronchitis Current visit: No Status: Acute Plan: Close observation Risks, benefits, side effects, alternatives discussed w/pt: Yes Patient agreeable to treatment: Yes (4) Migraine Current visit: Yes Status: Acute Plan: Continue hospitalization, Close observation, Monitor appetite, Family/ Supportive other meeting Risks, benefits, side effects, alternatives discussed w/pt: Yes Patient agreeable to treatment: Yes Qualifiers: Migraine type: without aura Status migrainosus presence: without status migrainosus Intractability: not intractable Qualified Code(s): G43.009 - Migraine without aura, not intractable, without status migrainosus Consult Discharge Plan - Plan Referrals: [facility] [Outside] - 12/17/17 10:00 am (The above appointment is with Pippa Khan for outpatient mental health counseling services. You will also see Nasra Moreira for outpatient psychiatric assessment and medication management services on 01/07/2018 at 3:30 PM.) Andreea Marin [Advanced Practice Nurse] - 12/18/17 1:10 pm (The above appointment is with Andreea Marin CNP, at Primary Care within [facility]. This appointment is to establish you with a primary care provider. Please arrive 15 minutes early to complete paperwork. Please bring your insurance card, photo ID and list of current medications to your first appointment. The above appointment(s) reflects first availability. You may contact the office regularly to check for cancellations that may allow you to be seen sooner.) Psychiatry Exam - Constitutional Vitals: Temp Pulse Resp BP Pulse Ox 97.1 F L 94 16 109/76 94 12/13/17 09:00 12/13/17 09:00 12/13/17 09:00 12/13/17 09:00 12/11/17 19:50 General appearance: age & developmentally appropriate, well-groomed, well- nourished - Musculoskeletal Gait: normal Station: slouched Strength & Tone: normal for patient - Psychiatric Patient Orientation: Yes Person, Yes Time, Yes Place Level of alertness: Alert Behavior: nervous Psychomotor activity: Normal Eye Contact: Maintains Eye Contact Mood Description: Depressed Affect description: anxious Speech Volume: Normal Speech pattern: normal rate, normal rhythm, normal tone, fluent, spontaneous Language & Vocabulary: consistent with education Thought Process: Linear, Goal Oriented Thought Content: Yes Suicidal ideation, No Homicidal ideation, No Overt delusions Perceptual Disturbances: Yes Auditory hallucinations, No Visual hallucinations Attention Span Ability: Capable of Focused Attention Memory Description: Grossly Intact Patient Reliability: Questionable Historian Fund of knowledge: Yes below average Intelligence Estimate: Average Judgment: Fair Insight: Partial
[2017-12-13] MEDS: traZODone 50 MG TABLET PO SCH (21:26)
[2017-12-13] MEDS: hydrOXYzine pamoate 25 MG CAPSULE PO PRN (21:26)
[2017-12-14] MEDS: traZODone 50 MG TABLET PO SCH (09:05)
[2017-12-14] MEDS: carBAMazepine 200 MG TABLET PO SCH ×2 (09:38→21:05)
[2017-12-14] MEDS: predniSONE 20 MG TABLET PO SCH (09:38)
[2017-12-14] MEDS: Nicotine 21 MG PATCH.TD24 TD SCH (09:40)
--- NOTE | 2017-12-14 14:38 | Psychiatry Progress Note ---
Date of Encounter: 12/14/17 Time of Encounter: 14:00 Subjective Interval history: Patient seen and discussed by a multidisciplinary treatment team. There were no reported behavioral issues overnight. Nursing notes reviewed and noted. Patient was calm and cooperative. She continue to show improvement with current regimen though she is still endorsing intermittent non command AH of a lesser intensity and frequency. She is compliant with her medications and denied any side effects. She remains receptive to trying long acting injectable medications due to problem with compliance. She reported excessive day heliotherapist grogginess with regimen.. Examination positive for mild bilateral rigidity of both elbows. On review of symptoms, she denied other mood/psychotic symptoms including VH/SI/HI. Her impulse control and judgment remain and will continue to benefit from hospitalization. Review of Systems Constitutional: Denies: fever, chills, weakness, weight change Eyes: Denies: eye pain, vision change Ears, Nose, Throat: Denies: ear pain, throat pain, dental pain, hearing loss, congestion Cardiovascular: Denies: chest pain, palpitations, dyspnea on exertion Respiratory: Denies: cough, dyspnea, wheezes Gastrointestinal: Denies: abdominal pain, nausea, vomiting, diarrhea, constipation Musculoskeletal: Denies: joint swelling, joint pain Neurological: Denies: headache, weakness, numbness, memory loss Psychiatric: Reports: auditory hallucinations, difficulty concentrating, mood swings Results - Vital Signs Vital Signs: Temp Pulse Resp BP Pulse Ox 98.6 F 90 14 117/76 94 12/14/17 09:00 12/14/17 09:00 12/14/17 09:00 12/14/17 09:00 12/11/17 19:50 Assessment and Plan (1) Bipolar II disorder Current visit: No Status: Acute Risks, benefits, side effects, alternatives discussed w/pt: Yes Patient agreeable to treatment: Yes (2) Anxiety disorder Current visit: No Status: Acute Qualifiers: Anxiety disorder type: unspecified anxiety disorder Qualified Code(s): F41.9 - Anxiety disorder, unspecified (3) Suicidal ideation Current visit: Yes Status: Acute (4) Deliberate self-cutting Current visit: No Status: Acute (5) Post traumatic stress disorder (PTSD) Current visit: No Status: Acute Risks, benefits, side effects, alternatives discussed w/pt: Yes Patient agreeable to treatment: Yes (6) Acute psychosis Current visit: Yes Status: Acute Consult Discharge Plan - Plan Referrals: [facility] [Outside] - 12/17/17 10:00 am (The above appointment is with Pippa Khan for outpatient mental health counseling services. You will also see Nasra Moreira for outpatient psychiatric assessment and medication management services on 01/07/2018 at 3:30 PM.) Andreea Marin [Advanced Practice Nurse] - 12/18/17 1:10 pm (The above appointment is with Andreea Marin CNP, at Primary Care within [facility]. This appointment is to establish you with a primary care provider. Please arrive 15 minutes early to complete paperwork. Please bring your insurance card, photo ID and list of current medications to your first appointment. The above appointment(s) reflects first availability. You may contact the office regularly to check for cancellations that may allow you to be seen sooner.) Psychiatry Exam - Constitutional Vitals: Temp Pulse Resp BP Pulse Ox 98.6 F 90 14 117/76 94 12/14/17 09:00 12/14/17 09:00 12/14/17 09:00 12/14/17 09:00 12/11/17 19:50 General appearance: age & developmentally appropriate - Musculoskeletal Gait: slow Station: stiff - Psychiatric Patient Orientation: Yes Time, Yes Place, Yes Circumstance Level of alertness: Alert Behavior: calm, cooperative Psychomotor activity: Slowed Eye Contact: Maintains Eye Contact Mood Description: Euthymic/stable Affect description: congruent with mood Speech Volume: Soft/Quiet Speech pattern: normal rate Thought Process: Linear, Goal Oriented Thought Content: Yes Intact Perceptual Disturbances: Yes Auditory hallucinations Attention Span Ability: Unable to Sustain Attention Memory Description: Immediate Impaired Patient Reliability: Reliable Historian Fund of knowledge: Yes average Intelligence Estimate: Average
[2017-12-14] MEDS: Acetaminophen 325 MG TABLET PO PRN (21:42)
[2017-12-15] MEDS: predniSONE 20 MG TABLET PO SCH (09:49)
[2017-12-15] MEDS: Nicotine 21 MG PATCH.TD24 TD SCH (09:49)
[2017-12-15] MEDS: carBAMazepine 200 MG TABLET PO SCH ×2 (09:50→21:02)
--- NOTE | 2017-12-15 13:00 | Psychiatry Progress Note ---
Date of Encounter: 12/15/17 Time of Encounter: 12:50 Subjective Interval history: Patient seen and discussed by a multidisciplinary treatment team. There were no reported behavioral issues overnight. Nursing notes reviewed and noted. Patient was calm and cooperative. She reported feeling tired and has been sleeping. Patient was receiving her Invega in the morning and has been changed to bed time. She still hears the voices but the are quieter and dont bother her. She is compliant with her medications and denied other noted sdie effects. She was noted with some improvement in her ambulation. Walking at a much improved pace compared to yesterday and less rigidity. On review of symptoms, she denied other mood/psychotic symptoms including VH/SI/HI. Her impulse control and judgment remain limited and will continue to benefit from hospitalization. Review of Systems Eyes: Denies: eye pain, vision change Ears, Nose, Throat: Denies: ear pain, throat pain, dental pain, hearing loss, congestion Cardiovascular: Denies: chest pain, palpitations, dyspnea on exertion Respiratory: Denies: cough, dyspnea, wheezes Gastrointestinal: Denies: abdominal pain, nausea, vomiting, diarrhea, constipation Musculoskeletal: Denies: joint swelling, joint pain Neurological: Denies: headache, weakness, numbness, memory loss Psychiatric: Reports: auditory hallucinations, difficulty concentrating Results - Vital Signs Vital Signs: Temp Pulse Resp BP Pulse Ox 97.0 F L 96 14 112/77 94 12/15/17 09:00 12/15/17 09:00 12/15/17 09:00 12/15/17 09:00 12/11/17 19:50 Assessment and Plan (1) Bipolar II disorder Current visit: No Status: Acute Risks, benefits, side effects, alternatives discussed w/pt: Yes Patient agreeable to treatment: Yes (2) Anxiety disorder Current visit: No Status: Acute Qualifiers: Anxiety disorder type: unspecified anxiety disorder Qualified Code(s): F41.9 - Anxiety disorder, unspecified (3) Suicidal ideation Current visit: Yes Status: Acute (4) Deliberate self-cutting Current visit: No Status: Acute (5) Post traumatic stress disorder (PTSD) Current visit: No Status: Acute Risks, benefits, side effects, alternatives discussed w/pt: Yes Patient agreeable to treatment: Yes (6) Acute psychosis Current visit: Yes Status: Acute Consult Discharge Plan - Plan Referrals: [facility] [Outside] - 12/17/17 10:00 am (The above appointment is with Pippa Khan for outpatient mental health counseling services. You will also see Nasra Lillie for outpatient psychiatric assessment and medication management services on 01/07/2018 at 3:30 PM.) Andreea Marin [Advanced Practice Nurse] - 12/18/17 1:10 pm (The above appointment is with Andreea Marin CNP, at Primary Care within [facility]. This appointment is to establish you with a primary care provider. Please arrive 15 minutes early to complete paperwork. Please bring your insurance card, photo ID and list of current medications to your first appointment. The above appointment(s) reflects first availability. You may contact the office regularly to check for cancellations that may allow you to be seen sooner.) Psychiatry Exam - Constitutional Vitals: Temp Pulse Resp BP Pulse Ox 97.0 F L 96 14 112/77 94 12/15/17 09:00 12/15/17 09:00 12/15/17 09:00 12/15/17 09:00 12/11/17 19:50 General appearance: age & developmentally appropriate, inappropriate - Musculoskeletal Gait: slow - Psychiatric Patient Orientation: Yes Person, Yes Place, Yes Circumstance Level of alertness: Alert Behavior: calm, cooperative Psychomotor activity: Slowed Eye Contact: Maintains Eye Contact Mood Description: Euthymic/stable Affect description: congruent with mood Speech Volume: Soft/Quiet Speech pattern: normal rate, normal rhythm, normal tone Language & Vocabulary: consistent with education Thought Process: Logical, Goal Oriented Thought Content: Yes Intact Perceptual Disturbances: Yes Auditory hallucinations Attention Span Ability: Capable of Focused Attention Memory Description: Grossly Intact Patient Reliability: Reliable Historian Fund of knowledge: Yes average Intelligence Estimate: Average Judgment: Limited Insight: Minimal
[2017-12-15] MEDS: traZODone 50 MG TABLET PO SCH (21:01)
[2017-12-16] MEDS: predniSONE 20 MG TABLET PO SCH (08:07)
[2017-12-16] MEDS: carBAMazepine 200 MG TABLET PO SCH (08:08)
[2017-12-16] MEDS: Nicotine 21 MG PATCH.TD24 TD SCH (08:08)
[2017-12-16 08:14] LABS: Basophils # 0.1 K/mcL (0.0-0.2); Basophils % 0.5 %; Eosinophils # 0.2 K/mcL (0.0-0.6); Eosinophils % 1.7 %; Hematocrit 41.9 % (35.3-44.9); Immature Granulocytes % 0.4 % (0-4); Lymphocytes # 4.1 K/mcL (0.6-4.6); Lymphocytes % 41.7 %; Mean Corpuscular HGB Conc 33.4 g/dL (31.6-35.5); Mean Corpuscular Hemoglobin 30.4 pg (28.0-33.3); Mean Corpuscular Volume 91.1 fL (83.0-100.0); Mean Platelet Volume 9.4 fL (9.4-12.4); Monocytes # 0.5 K/mcL (0.0-1.3); Monocytes % 5.4 %; Platelet Count 316 K/mcL (140-400); Red Cell Distribution Width 12.1 % (11.5-14.5); Segmented Neutrophils % 50.3 %
[2017-12-16 08:20] LABS: Albumin/Globulin Ratio 1.4 (1.1-2.2); Bilirubin,Direct 0.1 mg/dL (0.0-0.2); Bilirubin,Indirect 0.3 mg/dL (0.0-1.2); Bilirubin,Total 0.4 mg/dL (0.3-1.0); Chol/HDL Ratio 2.9 (0-4.9); Globulin 2.9 g/dL (2.4-3.5); Total Protein 6.9 g/dL (6.4-8.9)
[2017-12-16 09:55] VITALS: BP 107/81
--- NOTE | 2017-12-16 13:43 | Discharge Summary ---
Date of Encounter: 12/16/17 Time of Encounter: 13:20 Diagnosis - Discharge Diagnosis (1) Suicidal ideation Status: Resolved Comments: patient at present not in imenent danger to self/others. (2) Bipolar affective disorder, current episode depressed Status: Acute Comments: patient has improved with medications and doing better , she mack be discharged to [facility], as patient is homeless at present. Qualifiers: Current episode severity: severe Psychotic features: with psychotic features Qualified Code(s): F31.5 - Bipolar disorder, current episode depressed, severe, with psychotic features (3) Post traumatic stress disorder (PTSD) Status: Chronic Comments: patient is baseline with medication and inpatient treatment and has learned coping skills. Medications - Discharge Medications Prescriptions: Benztropine [Cogentin] 0.5 mg PO BID #60 tablet carBAMazepine [Tegretol] 200 mg PO BID #60 tablet Paliperidone [Invega] 6 mg PO DAILY #30 tab.er.24 traZODone [TraZODone] 200 mg PO HS #30 tablet Albuterol Sulfate [Albuterol Inhaler] 2 puff IH Q4HR PRN #1 [id number] 12/09/17 [Rx] predniSONE [PredniSONE] 40 mg PO DAILY #10 tablet 12/09/17 [Rx] Benztropine [Cogentin] 0.5 mg PO BID #60 tablet 12/16/17 [Rx] Paliperidone [Invega] 6 mg PO DAILY #30 tab.er.24 12/16/17 [Rx] carBAMazepine [Tegretol] 200 mg PO BID #60 tablet 12/16/17 [Rx] traZODone [TraZODone] 200 mg PO HS #30 tablet 12/16/17 [Rx] 3 Allergy/AdvReac Type Severity Reaction Status Date / Time tramadol [From Ultram] Allergy See Verified 12/09/17 18:21 Comments propoxyphene AdvReac Vomiting Verified 12/09/17 18:21 [From Darvocet-N] Results Procedures and tests throughout hospitalization: Completed Lab Orders Category Date Time Status CBC [Complete Blood Count] [HEME] Timed Lab 12/16/17 07:44 Completed Carbamazepine (Tegretol) Routine Lab 12/16/17 07:44 Completed Glucose Routine Lab 12/16/17 07:44 Completed Lipid Panel Routine Lab 12/16/17 07:44 Completed liver [Hepatic Panel] Routine Lab 12/16/17 07:44 Completed Provider Date of admission: 12/09/17 18:39 Primary care physician: PCP NONE Psychiatry Exam - Constitutional Vitals: Temp Pulse Resp BP Pulse Ox 97.5 F L 91 16 107/81 94 12/16/17 09:55 12/16/17 09:55 12/16/17 09:55 12/16/17 09:55 12/11/17 19:50 General appearance: age & developmentally appropriate - Musculoskeletal Gait: normal Station: other Strength & Tone: normal for patient - Psychiatric Patient Orientation: Yes Person, Yes Time, Yes Place Level of alertness: Alert Behavior: calm, cooperative Psychomotor activity: Normal Eye Contact: Maintains Eye Contact Mood Description: Euthymic/stable Affect description: congruent with mood Speech Volume: Normal Speech pattern: normal rate, normal rhythm, normal tone, coherent Language & Vocabulary: consistent with education Thought Process: Linear, Goal Oriented Thought Content: No Suicidal ideation, No Homicidal ideation, No Overt delusions Perceptual Disturbances: Yes Auditory hallucinations Attention Span Ability: Capable of Focused Attention Memory Description: Grossly Intact Patient Reliability: Reliable Historian Fund of knowledge: Yes abstraction ability, Yes aware of current events Intelligence Estimate: Average Judgment: Good Insight: Partial Hospital Course Hospital course: Ms. Chen is a 32 year old female was admitted from ED where presented with suicidal thoughts and had cut her arms and hearing voices, stopped her medication for 3 days. Patient has h/o bipolar, schizophrenia and substance use , borderline personality disorder ,suicidal thoughts and attempts and 5 or more psychiatric hospitalization. she had multiple stress homeless,financial , seeking divorce and 4 children who are with their father. During her hospitalization at , she was started with invega and responded well , carbamazepine which she tolerated well and medications helped her psychosis, moods instability and she learned coping skills. structured enviornment helped her and she gained insight in her illness. she at present denies suicidal thoughts , auditory hallucinations are very soft and she can not understand and she is not bothered by them and not commanding. denies paranoia , denies si/hi . she is at her baseline. labs done carbamazipine level is 9 and is in therapeutic range. she denies any cravings and will be discharged to [facility] . Time spent discussing smoking cessation with patient: 3 to 10 minutes Does patient wish to continue nicotine replacement upon disc: No (she is not ready at present.) - Time Spent with Patient Total time spent providing and/or coordinating discharge services: Greater than 30 minutes Assessment and Plan - Patient/Caregiver Discharge Instructions Activity: resume usual activities as tolerated Diet: regular diet - Follow up Plan Follow up with: [facility] [Outside] - 12/17/17 10:00 am (The above appointment is with Pippa Khan for outpatient mental health counseling services. You will also see Nasra Moreira for outpatient psychiatric assessment and medication management services on 01/07/2018 at 3:30 PM.) Andreea Marin [Advanced Practice Nurse] - 12/18/17 1:10 pm (The above appointment is with Andreea Marin CNP, at Primary Care within [facility]. This appointment is to establish you with a primary care provider. Please arrive 15 minutes early to complete paperwork. Please bring your insurance card, photo ID and list of current medications to your first appointment. The above appointment(s) reflects first availability. You may contact the office regularly to check for cancellations that may allow you to be seen sooner.) Functional capacity at discharge: independent ambulation Overall status at discharge: Stable Disposition: Transfer Other Quality - Multiple Antipsychotics Patient discharged on 2 or more antipsychotic medications: No Procedures - Procedures Procedures: Medication Management, Crisis Stabilization, Supportive Therapy, Group Therapy, Psychoeducational Therapy
== END 2017-12-16 16:45 | disposition other institution (70) | DRG 753 ==
LOC: EMEROO 15:46 → 1ANU 18:39 → SUATTDRO 18:39 → 1ANU 18:45
PROVIDERS: ADMIT Psychiatry & Neurology Forensic Psychiatry; ATTEND Psychiatry & Neurology Psychiatry

== ENCOUNTER 2018-05-02 10:42 | Inpatient (IN) ==
[2018-05-02 11:12] LABS: Bilirubin,Urine Negative (Negative); Blood,Urine Negative (Negative); Clarity,Urine Turbid (Clear); Color,Urine Yellow (Yellow); Glucose,Urine (UA) Normal (Normal); Ketones,Urine Negative (Negative); Leukocyte Esterase,Urine Small (Negative); Nitrite,Urine Negative (Negative); Protein,Urine Negative (Neg-Trace); Specific Gravity,Urine 1.023 (1.010-1.025); Urobilinogen,Urine Normal (Normal)
[2018-05-02 11:15] LABS: Bacteria,Urine Moderate per hpf (None-Few); Hyaline Casts,Urine None Seen per lpf (None-Few); Squamous Epithelial Cell,Urine Many per lpf (None-Few)
--- NOTE | 2018-05-02 11:23 | Emergency Department Note ---
Disposition Clinical Impression: Suicidal ideation Disposition: Home, Self-Care Psych HPI - General Chief Complaint: ED Psychiatric Symptoms Stated Complaint: SI Time Seen by Provider: 05/02/18 10:46 Source: patient, family Mode of arrival: ambulatory Limitations: no limitations Nursing Notes Reviewed: Yes Vital Signs Reviewed: Yes - History of Present Illness HPI Narrative: Priscilla Chen is a 32-yo female pt. with PMHx of schizophrenia, bipolar disorder, depression, and suicidal ideation with multiple attempts and hospitalizations for these diagnoses. She states that she smokes tobacco and marijuana, but denies any other recreational drug use. Her chief complaint today is suicidal ideation for two days, in the setting of depressed mood and recent dose changes to her medication. She saw her psychiatrist on 05/01 and had her tegretol and invega doses increased, with no other changes meds. She states that her children have been telling her they feel like they don't have a mother , and she has been hearing voices telling her that she is worthless and should just kill herself. She denies having a plan, and says she wanted to be seen before she developed one. She lives with her mom and denies having access to firearms. She admits to a history of three instances of attempted suicide by hanging, as well as significant self harm history by cutting that is not suicidal in nature. She denies any medical symptoms aside from anorexia over the past week, and she is unsure of whether this is mood-related or not. She denies any nausea, vomiting, abdominal pain, constipation, diarrhea, or other symptoms. Pt complaint: suicidal ideation, feels depressed, anxiety Onset (ago): day(s) (2) History of similar episodes: Yes Improves with: none Worsens with: none Alleged intoxication: No Associated Psychiatric Symptoms: depression, suicidal ideation, auditory hallucinations, anxiety Associated symptoms: Reports: other (anorexia) Traumatic symptoms: denies traumatic injury Treatments prior to arrival: none Self harm or harm to others: admits thoughts of self harm, denies having a plan - Related Data Home Medications Medication Instructions Recorded Confirmed Benztropine [Cogentin] 1 mg PO BID 05/02/18 05/02/18 FLUoxetine HCl [Prozac] 40 mg PO DAILY 05/02/18 05/02/18 Paliperidone [Invega] 9 mg PO DAILY 05/02/18 05/02/18 traZODone [TraZODone] 150 mg PO HS PRN 05/02/18 05/02/18 Previous Rx's Medication Instructions Recorded Albuterol Sulfate [Albuterol 2 puff IH Q4HR PRN #1 hfa.aer.ad 12/09/17 Inhaler] carBAMazepine [Tegretol] 200 mg PO BID #60 tablet 12/16/17 Allergies Allergy/AdvReac Type Severity Reaction Status Date / Time tramadol [From Ultram] Allergy See Verified 05/02/18 10:46 Comments propoxyphene AdvReac Vomiting Verified 05/02/18 10:46 [From Darvocet-N] Constitutional: Denies: fever, chills, weakness, weight change Cardiovascular: Denies: chest pain, palpitations, dyspnea on exertion, edema, syncope Respiratory: Denies: cough, dyspnea, wheezes, hemoptysis, stridor Neurological: Denies: headache, weakness, numbness, paresthesias, confusion, abnormal gait, vertigo Psychiatric: Reports: anxiety, depression, suicidal thoughts, auditory hallucinations. Denies: homicidal thoughts, visual hallucinations Past Medical History - Past Medical History Medical history: Reports: arthritis, migraine Surgical history: Reports: Psychiatric history: Reports: bipolar, PTSD, schizophrenia, previous psychiatric hospitalization [employer] history: Reports: bilateral tubal ligation - Social History Smoking Status: Current every day smoker Smokeless Tobacco Status: No Alcohol use: Reports: none Drug use: Reports: marijuana Physical Exam On exam, patient is alert and oriented and does not appear to be in distress, although her affect is flat. Her heart has RRR, and lungs are CTAB. Abdominal exam is benign, and her forearms have multiple scars. The remainder of her exam is normal. - General Limitations: no limitations General appearance: alert, in no apparent distress Course Vital Signs Temperature 98.2 F 05/02/18 10:44 Pulse Rate 90 05/02/18 10:44 Respiratory Rate 16 05/02/18 10:44 Blood Pressure 137/89 05/02/18 10:44 O2 Sat by Pulse Oximetry 97 05/02/18 10:44 Temperature 98.5 F 05/02/18 14:10 Pulse Rate 80 05/02/18 14:10 Respiratory Rate 16 05/02/18 14:10 Blood Pressure 117/86 05/02/18 14:10 O2 Sat by Pulse Oximetry 97 05/02/18 10:58 Oxygen Delivery Oxygen Delivery Room Air Psych - Lab Data Result diagrams: 05/02/18 11:23 05/02/18 11:23 Lab Results 05/02/18 05/02/18 05/02/18 Range/Units 10:50 10:50 11:04 WBC (4.3-11.1) K/mcL RBC (3.82-4.97) M/mcL Hgb (11.5-15.4) g/dL Hct (35.3-44.9) % MCV (83.0-100.0) fL MCH (28.0-33.3) pg MCHC (31.6-35.5) g/dL RDW (11.5-14.5) % Plt Count (140-400) K/mcL MPV (9.4-12.4) fL Immature Gran % (0-4) % Seg Neutrophils % % Lymphocytes % % Monocytes % % Eosinophils % % Basophils % % Neutrophils # (1.6-8.9) K/mcL Lymphocytes # (0.6-4.6) K/mcL Monocytes # (0.0-1.3) K/mcL Eosinophils # (0.0-0.6) K/mcL Basophils # (0.0-0.2) K/mcL Sodium (136-145) mEq/L Potassium (3.5-5.1) mEq/L Chloride (98-107) mEq/L Carbon Dioxide (23-29) mEq/L BUN (6-20) mg/dL Creatinine (0.60-1.20) mg/dL Est GFR ( Amer) (> 60) Est GFR (Non-Af Amer) (> 60) BUN/Creatinine Ratio (6-26) Glucose (70-105) mg/dL Calculated Osmolality (280-300) Calcium (8.6-10.3) mg/dL Urine Color Yellow (Yellow) Urine Clarity Turbid A (Clear) Urine pH 7.0 (5.0-8.0) pH Units Ur Specific [place] 1.023 (1.010-1.025) Urine Protein Negative (Neg-Trace) mg/dL Urine Glucose (UA) Normal (Normal) mg/dL Urine Ketones Negative (Negative) mg/dL Urine Blood Negative (Negative) Urine Nitrite Negative (Negative) Urine Bilirubin Negative (Negative) Urine Urobilinogen Normal (Normal) mg/dL Ur Leukocyte Esterase Small H (Negative) Urine Microscopic RBC 5-15 H (0-3) per hpf Urine Microscopic WBC 3-5 H (0-3) per hpf Ur Squamous Epith Cells Many H (None-Few) per lpf Urine Bacteria Moderate H (None-Few) per hpf Hyaline Casts None Seen (None-Few) per lpf Urine Test Negative (Negative) Salicylates (15.0-30.0) mg/dL Urine Opiates Screen Negative (Leviot=379) ng/mL Acetaminophen (10-20) mcg/mL Ur Barbiturates Screen Negative (Ksqeip=738) ng/mL Ur Phencyclidine Scrn Negative (Cutoff=25) ng/mL Ur Amphetamines Screen Negative (Capszi=5857) ng/mL U Benzodiazepines Scrn Negative (Yysmrm=252) ng/mL Urine Cocaine Screen Negative (Cutoff= 300) ng/mL U Marijuana (THC) Screen Positive H (Cutoff = 50) ng/mL Ur Drug Screen Interp See Below Ethyl Alcohol (Less than 10) mg/dL 05/02/18 05/02/18 Range/Units 11:23 11:23 WBC 5.7 (4.3-11.1) K/mcL RBC 4.33 (3.82-4.97) M/mcL Hgb 14.1 (11.5-15.4) g/dL Hct 40.3 (35.3-44.9) % MCV 93.1 (83.0-100.0) fL MCH 32.6 (28.0-33.3) pg MCHC 35.0 (31.6-35.5) g/dL RDW 11.3 L (11.5-14.5) % Plt Count 157 (140-400) K/mcL MPV 11.0 (9.4-12.4) fL Immature Gran % 0.2 (0-4) % Seg Neutrophils % 57.6 % Lymphocytes % 31.7 % Monocytes % 6.3 % Eosinophils % 3.5 % Basophils % 0.7 % Neutrophils # 3.3 (1.6-8.9) K/mcL Lymphocytes # 1.8 (0.6-4.6) K/mcL Monocytes # 0.4 (0.0-1.3) K/mcL Eosinophils # 0.2 (0.0-0.6) K/mcL Basophils # 0.0 (0.0-0.2) K/mcL Sodium 138 (136-145) mEq/L Potassium 3.8 (3.5-5.1) mEq/L Chloride 107 (98-107) mEq/L Carbon Dioxide 26 (23-29) mEq/L BUN 15 (6-20) mg/dL Creatinine 0.63 (0.60-1.20) mg/dL Est GFR ( Amer) > 60 (> 60) Est GFR (Non-Af Amer) > 60 (> 60) BUN/Creatinine Ratio 24 (6-26) Glucose 94 (70-105) mg/dL Calculated Osmolality 287 (280-300) Calcium 9.1 (8.6-10.3) mg/dL Urine Color (Yellow) Urine Clarity (Clear) Urine pH (5.0-8.0) pH Units Ur Specific [place] (1.010-1.025) Urine Protein (Neg-Trace) mg/dL Urine Glucose (UA) (Normal) mg/dL Urine Ketones (Negative) mg/dL Urine Blood (Negative) Urine Nitrite (Negative) Urine Bilirubin (Negative) Urine Urobilinogen (Normal) mg/dL Ur Leukocyte Esterase (Negative) Urine Microscopic RBC (0-3) per hpf Urine Microscopic WBC (0-3) per hpf Ur Squamous Epith Cells (None-Few) per lpf Urine Bacteria (None-Few) per hpf Hyaline Casts (None-Few) per lpf Urine Test (Negative) Salicylates < 2.5 L (15.0-30.0) mg/dL Urine Opiates Screen (Unzfsg=381) ng/mL Acetaminophen < 10 L (10-20) mcg/mL Ur Barbiturates Screen (Pltjfg=603) ng/mL Ur Phencyclidine Scrn (Cutoff=25) ng/mL Ur Amphetamines Screen (Hwujsl=0662) ng/mL U Benzodiazepines Scrn (Avpbtb=965) ng/mL Urine Cocaine Screen (Cutoff= 300) ng/mL U Marijuana (THC) Screen (Cutoff = 50) ng/mL Ur Drug Screen Interp Ethyl Alcohol < 10 (Less than 10) mg/dL Psychiatric Medical Clearance - Medical Clearance Checklist Medical History: No Social History Section defined Current Vitals: Last Vital Signs Temp 98.5 F 05/02/18 14:10 Pulse 80 05/02/18 14:10 Resp 16 05/02/18 14:10 BP 117/86 05/02/18 14:10 Pulse Ox 97 05/02/18 10:58 Psychiatric Lab Panel: Drug Levels and Toxicity 05/02/18 05/02/18 10:50 11:23 Urine Opiates Screen Negative Acetaminophen < 10 L Ur Barbiturates Screen Negative Ur Phencyclidine Scrn Negative Ur Amphetamines Screen Negative U Benzodiazepines Scrn Negative Urine Cocaine Screen Negative U Marijuana (THC) Screen Positive H Ethyl Alcohol < 10 Abnormal Labs: Abnormal lab results RDW 11.3 % (11.5-14.5) L 05/02/18 11:23 Urine Clarity Turbid (Clear) A 05/02/18 11:04 Ur Leukocyte Esterase Small (Negative) H 05/02/18 11:04 Urine Microscopic RBC 5-15 per hpf (0-3) H 05/02/18 11:04 Urine Microscopic WBC 3-5 per hpf (0-3) H 05/02/18 11:04 Ur Squamous Epith Cells Many per lpf (None-Few) H 05/02/18 11:04 Urine Bacteria Moderate per hpf (None-Few) H 05/02/18 11:04 Salicylates < 2.5 mg/dL (15.0-30.0) L 05/02/18 11:23 Acetaminophen < 10 mcg/mL (10-20) L 05/02/18 11:23 U Marijuana (THC) Screen Positive ng/mL (Cutoff = 50) H 05/02/18 10:50
--- NOTE | 2018-05-02 11:31 | Emergency Department Note ---
Disposition Clinical Impression: Suicidal ideation Disposition: Home, Self-Care General Adult HPI - General Chief complaint: ED Psychiatric Symptoms Stated complaint: SI Time Seen by Provider: 05/02/18 10:46 Source: patient, family Mode of arrival: ambulatory Limitations: no limitations - History of Present Illness Pain Scale: 7 - Related Data Home Medications Medication Instructions Recorded Confirmed Benztropine [Cogentin] 1 mg PO BID 05/02/18 05/02/18 FLUoxetine HCl [Prozac] 40 mg PO 05/02/18 05/02/18 Paliperidone [Invega] 9 mg PO DAILY 05/02/18 05/02/18 traZODone [TraZODone] 150 mg PO HS PRN 05/02/18 05/02/18 Previous Rx's Medication Instructions Recorded Albuterol Sulfate [Albuterol 2 puff IH Q4HR PRN #1 hfa.aer.ad 12/09/17 Inhaler] carBAMazepine [Tegretol] 200 mg PO BID #60 tablet 12/16/17 Allergies Allergy/AdvReac Type Severity Reaction Status Date / Time tramadol [From Ultram] Allergy See Verified 05/02/18 10:46 Comments propoxyphene AdvReac Vomiting Verified 05/02/18 10:46 [From Dargodwint-N] Constitutional: Denies: fever, chills, weakness, weight change Cardiovascular: Denies: chest pain, palpitations, dyspnea on exertion, edema, syncope Respiratory: Denies: cough, dyspnea, wheezes, hemoptysis, stridor Neurological: Denies: headache, weakness, numbness, paresthesias, confusion, abnormal gait, vertigo Psychiatric: Reports: anxiety, depression, suicidal thoughts, auditory hallucinations. Denies: homicidal thoughts, visual hallucinations Past Medical History - Past Medical History Medical history: Reports: arthritis, migraine Surgical history: Reports: Psychiatric history: Reports: bipolar, PTSD, schizophrenia, previous psychiatric hospitalization [employer] history: Reports: bilateral tubal ligation - Social History Smoking Status: Current every day smoker Smokeless Tobacco Status: No Alcohol use: Reports: none Drug use: Reports: marijuana Physical Exam - General Limitations: no limitations General appearance: alert, in no apparent distress Course Vital Signs Temperature 98.2 F 05/02/18 10:44 Pulse Rate 90 05/02/18 10:44 Respiratory Rate 16 05/02/18 10:44 Blood Pressure 137/89 05/02/18 10:44 O2 Sat by Pulse Oximetry 97 05/02/18 10:44 Temperature 98.2 F 05/02/18 10:58 Pulse Rate 90 05/02/18 10:58 Respiratory Rate 16 05/02/18 10:58 Blood Pressure 137/89 05/02/18 10:58 O2 Sat by Pulse Oximetry 97 05/02/18 10:58 Oxygen Delivery Oxygen Delivery Room Air Medical Decision Making - Lab Data Result diagrams: 05/02/18 11:23 05/02/18 11:23 Lab Results 05/02/18 05/02/18 05/02/18 Range/Units 10:50 10:50 11:04 WBC (4.3-11.1) K/mcL RBC (3.82-4.97) M/mcL Hgb (11.5-15.4) g/dL Hct (35.3-44.9) % MCV (83.0-100.0) fL MCH (28.0-33.3) pg MCHC (31.6-35.5) g/dL RDW (11.5-14.5) % Plt Count (140-400) K/mcL MPV (9.4-12.4) fL Immature Gran % (0-4) % Seg Neutrophils % % Lymphocytes % % Monocytes % % Eosinophils % % Basophils % % Neutrophils # (1.6-8.9) K/mcL Lymphocytes # (0.6-4.6) K/mcL Monocytes # (0.0-1.3) K/mcL Eosinophils # (0.0-0.6) K/mcL Basophils # (0.0-0.2) K/mcL Sodium (136-145) mEq/L Potassium (3.5-5.1) mEq/L Chloride (98-107) mEq/L Carbon Dioxide (23-29) mEq/L BUN (6-20) mg/dL Creatinine (0.60-1.20) mg/dL Est GFR ( Amer) (> 60) Est GFR (Non-Af Amer) (> 60) BUN/Creatinine Ratio (6-26) Glucose (70-105) mg/dL Calculated Osmolality (280-300) Calcium (8.6-10.3) mg/dL Urine Color Yellow (Yellow) Urine Clarity Turbid A (Clear) Urine pH 7.0 (5.0-8.0) pH Units Ur Specific [place] 1.023 (1.010-1.025) Urine Protein Negative (Neg-Trace) mg/dL Urine Glucose (UA) Normal (Normal) mg/dL Urine Ketones Negative (Negative) mg/dL Urine Blood Negative (Negative) Urine Nitrite Negative (Negative) Urine Bilirubin Negative (Negative) Urine Urobilinogen Normal (Normal) mg/dL Ur Leukocyte Esterase Small H (Negative) Urine Microscopic RBC 5-15 H (0-3) per hpf Urine Microscopic WBC 3-5 H (0-3) per hpf Ur Squamous Epith Cells Many H (None-Few) per lpf Urine Bacteria Moderate H (None-Few) per hpf Hyaline Casts None Seen (None-Few) per lpf Urine Test Negative (Negative) Salicylates (15.0-30.0) mg/dL Urine Opiates Screen Negative (Xgctbz=644) ng/mL Acetaminophen (10-20) mcg/mL Ur Barbiturates Screen Negative (Ngbsbl=097) ng/mL Ur Phencyclidine Scrn Negative (Cutoff=25) ng/mL Ur Amphetamines Screen Negative (Dmpfvg=2529) ng/mL U Benzodiazepines Scrn Negative (Pnxfqp=333) ng/mL Urine Cocaine Screen Negative (Cutoff= 300) ng/mL U Marijuana (THC) Screen Positive H (Cutoff = 50) ng/mL Ur Drug Screen Interp See Below Ethyl Alcohol (Less than 10) mg/dL 05/02/18 05/02/18 Range/Units 11:23 11:23 WBC 5.7 (4.3-11.1) K/mcL RBC 4.33 (3.82-4.97) M/mcL Hgb 14.1 (11.5-15.4) g/dL Hct 40.3 (35.3-44.9) % MCV 93.1 (83.0-100.0) fL MCH 32.6 (28.0-33.3) pg MCHC 35.0 (31.6-35.5) g/dL RDW 11.3 L (11.5-14.5) % Plt Count 157 (140-400) K/mcL MPV 11.0 (9.4-12.4) fL Immature Gran % 0.2 (0-4) % Seg Neutrophils % 57.6 % Lymphocytes % 31.7 % Monocytes % 6.3 % Eosinophils % 3.5 % Basophils % 0.7 % Neutrophils # 3.3 (1.6-8.9) K/mcL Lymphocytes # 1.8 (0.6-4.6) K/mcL Monocytes # 0.4 (0.0-1.3) K/mcL Eosinophils # 0.2 (0.0-0.6) K/mcL Basophils # 0.0 (0.0-0.2) K/mcL Sodium 138 (136-145) mEq/L Potassium 3.8 (3.5-5.1) mEq/L Chloride 107 (98-107) mEq/L Carbon Dioxide 26 (23-29) mEq/L BUN 15 (6-20) mg/dL Creatinine 0.63 (0.60-1.20) mg/dL Est GFR ( Amer) > 60 (> 60) Est GFR (Non-Af Amer) > 60 (> 60) BUN/Creatinine Ratio 24 (6-26) Glucose 94 (70-105) mg/dL Calculated Osmolality 287 (280-300) Calcium 9.1 (8.6-10.3) mg/dL Urine Color (Yellow) Urine Clarity (Clear) Urine pH (5.0-8.0) pH Units Ur Specific [place] (1.010-1.025) Urine Protein (Neg-Trace) mg/dL Urine Glucose (UA) (Normal) mg/dL Urine Ketones (Negative) mg/dL Urine Blood (Negative) Urine Nitrite (Negative) Urine Bilirubin (Negative) Urine Urobilinogen (Normal) mg/dL Ur Leukocyte Esterase (Negative) Urine Microscopic RBC (0-3) per hpf Urine Microscopic WBC (0-3) per hpf Ur Squamous Epith Cells (None-Few) per lpf Urine Bacteria (None-Few) per hpf Hyaline Casts (None-Few) per lpf Urine Test (Negative) Salicylates < 2.5 L (15.0-30.0) mg/dL Urine Opiates Screen (Gxkqzz=904) ng/mL Acetaminophen < 10 L (10-20) mcg/mL Ur Barbiturates Screen (Whqdlr=670) ng/mL Ur Phencyclidine Scrn (Cutoff=25) ng/mL Ur Amphetamines Screen (Ljyoov=2939) ng/mL U Benzodiazepines Scrn (Mbgaxn=975) ng/mL Urine Cocaine Screen (Cutoff= 300) ng/mL U Marijuana (THC) Screen (Cutoff = 50) ng/mL Ur Drug Screen Interp Ethyl Alcohol < 10 (Less than 10) mg/dL Attestation Statement - Attestation Attestation: I examined this patient and my medical decision-making was reviewed with the Resident Physician. I agree with the documented findings, disposition and treatment plan as described except to the extent set forth below. Patient to the ED with suicidal thoughts. No plan. History of the same. Patient's history of schizophrenia and bipolar. Recent increase in meds. Patient hearing voices. This is not new for her. She is calm and in no distress on examination. Plan. Medical clearance and evaluation by 1A. Medically cleared. Contacting 1A at this time. 1208 Admitted to 1A
--- NOTE | 2018-05-02 11:31 | Emergency Department Note ---
Disposition Clinical Impression: Suicidal ideation Disposition: Admitted As Inpatient Condition: Fair Psych HPI - General Chief Complaint: ED Psychiatric Symptoms Stated Complaint: SI Time Seen by Provider: 05/02/18 10:46 Source: patient, family Mode of arrival: ambulatory Limitations: no limitations Nursing Notes Reviewed: Yes Vital Signs Reviewed: Yes - History of Present Illness HPI Narrative: 32-year-old female with history of bipolar, schizophrenia presents for evaluation of suicidal ideation. Patient states she has thought of killing herself or the past couple days. Does not have a plan. Patient does have prior attempts with hanging cutting. Patient states that they recently increased some of her psychiatric medications. Patient's also been having auditory hallucinations which are prompting her to kill her self. Patient has history of moderate or hallucinations in the past. Denies any history of drugs or alcohol. Denies any homicidal ideation. Denies any fevers or cough. No chest measures breath. No abdominal pain or nausea vomiting. Patient does have a decreased appetite over the past couple months. Improves with: none Worsens with: none Associated symptoms: Reports: other (anorexia) Treatments prior to arrival: none - Related Data Home Medications Medication Instructions Recorded Confirmed Benztropine [Cogentin] 1 mg PO BID 05/02/18 05/02/18 FLUoxetine HCl [Prozac] 40 mg PO DAILY 05/02/18 05/02/18 Paliperidone [Invega] 9 mg PO DAILY 05/02/18 05/02/18 traZODone [TraZODone] 150 mg PO HS PRN 05/02/18 05/02/18 Previous Rx's Medication Instructions Recorded Albuterol Sulfate [Albuterol 2 puff IH Q4HR PRN #1 hfa.aer.ad 12/09/17 Inhaler] carBAMazepine [Tegretol] 200 mg PO BID #60 tablet 12/16/17 Allergies Allergy/AdvReac Type Severity Reaction Status Date / Time tramadol [From Ultram] Allergy See Verified 05/02/18 10:46 Comments propoxyphene AdvReac Vomiting Verified 05/02/18 10:46 [From Roddy] Constitutional: Denies: fever, chills, weakness, weight change Cardiovascular: Denies: chest pain, palpitations, dyspnea on exertion, edema, syncope Respiratory: Denies: cough, dyspnea, wheezes, hemoptysis, stridor Neurological: Denies: headache, weakness, numbness, paresthesias, confusion, abnormal gait, vertigo Psychiatric: Reports: anxiety, depression, suicidal thoughts, auditory hallucinations. Denies: homicidal thoughts, visual hallucinations Past Medical History - Past Medical History Source: patient Medical history: Reports: arthritis, migraine Surgical history: Reports: Psychiatric history: Reports: bipolar, PTSD, schizophrenia, previous psychiatric hospitalization [employer] history: Reports: bilateral tubal ligation - Social History Smoking Status: Current every day smoker Smokeless Tobacco Status: No Alcohol use: Reports: none Drug use: Reports: marijuana Physical Exam - General Limitations: no limitations General appearance: alert, in no apparent distress - Head Head exam: atraumatic, normocephalic, normal inspection - Eye Eye exam: Present: normal appearance, PERRL, EOMI. Absent: miosis, mydriasis - ENT ENT exam: normal exam, normal oropharynx, mucous membranes moist - Neck Neck exam: Present: normal inspection, trachea midline - Chest Chest inspection: Present: normal inspection, symmetric chest wall rise - Respiratory Respiratory exam: Present: normal lung sounds bilaterally. Absent: respiratory distress - Cardiovascular Cardiovascular exam: Present: regular rate, normal rhythm. Absent: systolic murmur - Abdominal Exam Abdominal exam: Present: soft, Non-Tender - Extremities Exam Extremities exam: Present: normal inspection. Absent: pedal edema - Expanded Lower Extremity Exam Neurovascular/Tendon exam: Present: normal capillary refill - Back Exam Back exam: Present: normal inspection - Neurological Exam Neurological exam: Present: alert, oriented X3, CN II-XII intact - Psychiatric Psychiatric exam: Present: depressed - Skin Skin exam: Present: warm, dry, intact, normal color. Absent: rash Course Course Narrative: Patient seen and examined. Patient get medically screened and evaluated by psychiatry. Disposition pending. Vital Signs Temperature 98.2 F 05/02/18 10:44 Pulse Rate 90 05/02/18 10:44 Respiratory Rate 16 05/02/18 10:44 Blood Pressure 137/89 05/02/18 10:44 O2 Sat by Pulse Oximetry 97 05/02/18 10:44 Temperature 98.5 F 05/02/18 14:10 Pulse Rate 80 05/02/18 14:10 Respiratory Rate 16 05/02/18 14:10 Blood Pressure 117/86 05/02/18 14:10 O2 Sat by Pulse Oximetry 97 05/02/18 10:58 Oxygen Delivery Oxygen Delivery Room Air Psych - Lab Data Result diagrams: 05/02/18 11:23 05/02/18 11:23 Lab Results 05/02/18 05/02/18 05/02/18 Range/Units 10:50 10:50 11:04 WBC (4.3-11.1) K/mcL RBC (3.82-4.97) M/mcL Hgb (11.5-15.4) g/dL Hct (35.3-44.9) % MCV (83.0-100.0) fL MCH (28.0-33.3) pg MCHC (31.6-35.5) g/dL RDW (11.5-14.5) % Plt Count (140-400) K/mcL MPV (9.4-12.4) fL Immature Gran % (0-4) % Seg Neutrophils % % Lymphocytes % % Monocytes % % Eosinophils % % Basophils % % Neutrophils # (1.6-8.9) K/mcL Lymphocytes # (0.6-4.6) K/mcL Monocytes # (0.0-1.3) K/mcL Eosinophils # (0.0-0.6) K/mcL Basophils # (0.0-0.2) K/mcL Sodium (136-145) mEq/L Potassium (3.5-5.1) mEq/L Chloride (98-107) mEq/L Carbon Dioxide (23-29) mEq/L BUN (6-20) mg/dL Creatinine (0.60-1.20) mg/dL Est GFR ( Amer) (> 60) Est GFR (Non-Af Amer) (> 60) BUN/Creatinine Ratio (6-26) Glucose (70-105) mg/dL Calculated Osmolality (280-300) Calcium (8.6-10.3) mg/dL Urine Color Yellow (Yellow) Urine Clarity Turbid A (Clear) Urine pH 7.0 (5.0-8.0) pH Units Ur Specific [place] 1.023 (1.010-1.025) Urine Protein Negative (Neg-Trace) mg/dL Urine Glucose (UA) Normal (Normal) mg/dL Urine Ketones Negative (Negative) mg/dL Urine Blood Negative (Negative) Urine Nitrite Negative (Negative) Urine Bilirubin Negative (Negative) Urine Urobilinogen Normal (Normal) mg/dL Ur Leukocyte Esterase Small H (Negative) Urine Microscopic RBC 5-15 H (0-3) per hpf Urine Microscopic WBC 3-5 H (0-3) per hpf Ur Squamous Epith Cells Many H (None-Few) per lpf Urine Bacteria Moderate H (None-Few) per hpf Hyaline Casts None Seen (None-Few) per lpf Urine Test Negative (Negative) Salicylates (15.0-30.0) mg/dL Urine Opiates Screen Negative (Ynofeq=006) ng/mL Acetaminophen (10-20) mcg/mL Ur Barbiturates Screen Negative (Urantm=604) ng/mL Ur Phencyclidine Scrn Negative (Cutoff=25) ng/mL Ur Amphetamines Screen Negative (Bajcej=7424) ng/mL U Benzodiazepines Scrn Negative (Uxjpim=837) ng/mL Urine Cocaine Screen Negative (Cutoff= 300) ng/mL U Marijuana (THC) Screen Positive H (Cutoff = 50) ng/mL Ur Drug Screen Interp See Below Ethyl Alcohol (Less than 10) mg/dL 05/02/18 05/02/18 Range/Units 11:23 11:23 WBC 5.7 (4.3-11.1) K/mcL RBC 4.33 (3.82-4.97) M/mcL Hgb 14.1 (11.5-15.4) g/dL Hct 40.3 (35.3-44.9) % MCV 93.1 (83.0-100.0) fL MCH 32.6 (28.0-33.3) pg MCHC 35.0 (31.6-35.5) g/dL RDW 11.3 L (11.5-14.5) % Plt Count 157 (140-400) K/mcL MPV 11.0 (9.4-12.4) fL Immature Gran % 0.2 (0-4) % Seg Neutrophils % 57.6 % Lymphocytes % 31.7 % Monocytes % 6.3 % Eosinophils % 3.5 % Basophils % 0.7 % Neutrophils # 3.3 (1.6-8.9) K/mcL Lymphocytes # 1.8 (0.6-4.6) K/mcL Monocytes # 0.4 (0.0-1.3) K/mcL Eosinophils # 0.2 (0.0-0.6) K/mcL Basophils # 0.0 (0.0-0.2) K/mcL Sodium 138 (136-145) mEq/L Potassium 3.8 (3.5-5.1) mEq/L Chloride 107 (98-107) mEq/L Carbon Dioxide 26 (23-29) mEq/L BUN 15 (6-20) mg/dL Creatinine 0.63 (0.60-1.20) mg/dL Est GFR ( Amer) > 60 (> 60) Est GFR (Non-Af Amer) > 60 (> 60) BUN/Creatinine Ratio 24 (6-26) Glucose 94 (70-105) mg/dL Calculated Osmolality 287 (280-300) Calcium 9.1 (8.6-10.3) mg/dL Urine Color (Yellow) Urine Clarity (Clear) Urine pH (5.0-8.0) pH Units Ur Specific [place] (1.010-1.025) Urine Protein (Neg-Trace) mg/dL Urine Glucose (UA) (Normal) mg/dL Urine Ketones (Negative) mg/dL Urine Blood (Negative) Urine Nitrite (Negative) Urine Bilirubin (Negative) Urine Urobilinogen (Normal) mg/dL Ur Leukocyte Esterase (Negative) Urine Microscopic RBC (0-3) per hpf Urine Microscopic WBC (0-3) per hpf Ur Squamous Epith Cells (None-Few) per lpf Urine Bacteria (None-Few) per hpf Hyaline Casts (None-Few) per lpf Urine Test (Negative) Salicylates < 2.5 L (15.0-30.0) mg/dL Urine Opiates Screen (Lyilsh=710) ng/mL Acetaminophen < 10 L (10-20) mcg/mL Ur Barbiturates Screen (Hkpcbd=687) ng/mL Ur Phencyclidine Scrn (Cutoff=25) ng/mL Ur Amphetamines Screen (Xjocqu=8696) ng/mL U Benzodiazepines Scrn (Svsdve=000) ng/mL Urine Cocaine Screen (Cutoff= 300) ng/mL U Marijuana (THC) Screen (Cutoff = 50) ng/mL Ur Drug Screen Interp Ethyl Alcohol < 10 (Less than 10) mg/dL Psychiatric Medical Clearance - Medical Clearance Checklist Medical History: No Social History Section defined Current Vitals: Last Vital Signs Temp 98.5 F 05/02/18 14:10 Pulse 80 05/02/18 14:10 Resp 16 05/02/18 14:10 BP 117/86 05/02/18 14:10 Pulse Ox 97 05/02/18 10:58 Psychiatric Lab Panel: Drug Levels and Toxicity 05/02/18 05/02/18 10:50 11:23 Urine Opiates Screen Negative Acetaminophen < 10 L Ur Barbiturates Screen Negative Ur Phencyclidine Scrn Negative Ur Amphetamines Screen Negative U Benzodiazepines Scrn Negative Urine Cocaine Screen Negative U Marijuana (THC) Screen Positive H Ethyl Alcohol < 10 Abnormal Labs: Abnormal lab results RDW 11.3 % (11.5-14.5) L 05/02/18 11:23 Urine Clarity Turbid (Clear) A 05/02/18 11:04 Ur Leukocyte Esterase Small (Negative) H 05/02/18 11:04 Urine Microscopic RBC 5-15 per hpf (0-3) H 05/02/18 11:04 Urine Microscopic WBC 3-5 per hpf (0-3) H 05/02/18 11:04 Ur Squamous Epith Cells Many per lpf (None-Few) H 05/02/18 11:04 Urine Bacteria Moderate per hpf (None-Few) H 05/02/18 11:04 Salicylates < 2.5 mg/dL (15.0-30.0) L 05/02/18 11:23 Acetaminophen < 10 mcg/mL (10-20) L 05/02/18 11:23 U Marijuana (THC) Screen Positive ng/mL (Cutoff = 50) H 05/02/18 10:50 Statement of Medical Clearance: I have evaluated the patient, reviewed diagnostic information, and certify that the patient's medical condition is sufficiently stable that transfer to the psychiatric unit does not pose a significant risk of deterioration.
[2018-05-02 11:35] LABS: Amphetamine Screen,Urine Negative ng/mL (Cutoff=1000); Barbiturate Screen,Urine Negative ng/mL (Cutoff=200); Benzodiazepines Screen,Urine Negative ng/mL (Cutoff=200); Cannabinoid Screen,Urine Positive ng/mL (Cutoff = 50); Cocaine Screen,Urine Negative ng/mL (Cutoff= 300); Opiate Screen,Urine Negative ng/mL (Cutoff=300); Phencyclidine Screen,Urine Negative ng/mL (Cutoff=25)
[2018-05-02 11:36] LABS: Basophils % 0.7 %; Eosinophils # 0.2 K/mcL (0.0-0.6); Eosinophils % 3.5 %; Hematocrit 40.3 % (35.3-44.9); Hemoglobin 14.1 g/dL (11.5-15.4); Immature Granulocytes % 0.2 % (0-4); Lymphocytes # 1.8 K/mcL (0.6-4.6); Lymphocytes % 31.7 %; Mean Corpuscular Hemoglobin 32.6 pg (28.0-33.3); Mean Corpuscular Volume 93.1 fL (83.0-100.0); Monocytes # 0.4 K/mcL (0.0-1.3); Monocytes % 6.3 %; Neutrophils # 3.3 K/mcL (1.6-8.9); Platelet Count 157 K/mcL (140-400); Red Blood Count 4.33 M/mcL (3.82-4.97); Red Cell Distribution Width 11.3 % (11.5-14.5); Segmented Neutrophils % 57.6 %
[2018-05-02 11:56] LABS: Acetaminophen < 10 mcg/mL (10-20); BUN/Creatinine Ratio 24 (6-26); Blood Urea Nitrogen 15 mg/dL (6-20); Calcium 9.1 mg/dL (8.6-10.3); Carbon Dioxide 26 mEq/L (23-29); Chloride 107 mEq/L (98-107); Ethanol < 10 mg/dL (Less than 10); Glucose 94 mg/dL (70-105); Osmolality,Calculated 287 (280-300); Potassium 3.8 mEq/L (3.5-5.1); Salicylate < 2.5 mg/dL (15.0-30.0); Sodium 138 mEq/L (136-145); eGFR For Non-African Americans > 60 (> 60)
[2018-05-02] MEDS ORDERED: traZODone 50 MG TABLET PO PRN (15:40)
[2018-05-02] MEDS ORDERED: Haloperidol Lactate 5 MG/ML VIAL IM PRN (15:40)
[2018-05-02] MEDS ORDERED: MOM Conc 10 ML UD.LIQ PO PRN (15:40)
[2018-05-02] MEDS ORDERED: Ibuprofen 400 MG TABLET PO PRN (15:40)
[2018-05-02] MEDS ORDERED: *HR* LORazepam 1 MG TABLET PO PRN (15:40)
[2018-05-02] MEDS ORDERED: Mag Hydrox/Al Hydrox/Simeth 30 ML UDC PO PRN (15:40)
[2018-05-02] MEDS ORDERED: hydrOXYzine pamoate 25 MG CAPSULE PO PRN (15:40)
[2018-05-02] MEDS ORDERED: *HR* LORazepam 2 MG/ML VIAL IM PRN (15:40)
[2018-05-02] MEDS: carBAMazepine 200 MG TABLET PO SCH (20:42)
[2018-05-03] MEDS: carBAMazepine 200 MG TABLET PO SCH ×2 (08:47→20:24)
[2018-05-03] MEDS: FLUoxetine 20 MG CAPSULE PO SCH (08:47)
[2018-05-03] MEDS: Nicotine 14 MG PATCH.TD24 TD SCH (08:48)
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
[2018-05-03] MEDS: traZODone 50 MG TABLET PO PRN (21:57)
[2018-05-04] MEDS: FLUoxetine 20 MG CAPSULE PO SCH (08:20)
[2018-05-04] MEDS: carBAMazepine 200 MG TABLET PO SCH ×2 (08:21→21:12)
[2018-05-04] MEDS: Nicotine 14 MG PATCH.TD24 TD SCH (08:24)
--- NOTE | 2018-05-04 10:38 | Psychiatry Progress Note ---
Date of Encounter: 05/04/18 Time of Encounter: 10:34 Subjective Interval history: Client remains depressed. Denies SI today but having thoughts of self harm. Engages in self injurious behaviors to help with emotional pain. Has multiple scars on arms where she has cut herself in the past. Has not engaged in self harm in the hospital but still experiencing urges to do so. Voices remain loud. No improvements. According to staff she is withdrawn on the unit. Meds were recently increased so will give her one more day at higher doses. If no improvement by tomorrow may need an additional increase or a change in medication. Pleasant but thought blocking. Delayed responses. Appears to be responding to IS. Review of Systems Constitutional: Denies: fever, chills, weakness, weight change Eyes: Denies: eye pain, vision change Ears, Nose, Throat: Denies: ear pain, throat pain, dental pain, hearing loss, congestion Cardiovascular: Denies: chest pain, palpitations, dyspnea on exertion Respiratory: Denies: cough, dyspnea, wheezes Gastrointestinal: Denies: abdominal pain, nausea, vomiting, diarrhea, constipation Musculoskeletal: Denies: joint swelling, joint pain Neurological: Denies: headache, weakness, numbness, memory loss Results - Vital Signs Vital Signs: Temp Pulse Resp BP Pulse Ox 98.0 F 93 16 98/70 97 05/04/18 08:05/04/18 08:05/04/18 08:05/04/18 08:05/02/18 10:58 Assessment and Plan (1) Schizophrenia Current visit: Yes Status: Acute Plan: Continue hospitalization, Close observation, Suicide Precautions per unit protocol, Encourage participation in unit milieu, Group Therapy, Monitor sleep, Monitor appetite Risks, benefits, side effects, alternatives discussed w/pt: Yes Patient agreeable to treatment: Yes Qualifiers: Schizophrenia type: unspecified Qualified Code(s): F20.9 - Schizophrenia, unspecified Consult Discharge Plan - Plan Referrals: NONE,PCP [Primary Care Provider] - Psychiatry Exam - Constitutional Vitals: Temp Pulse Resp BP Pulse Ox 98.0 F 93 16 98/70 97 05/04/18 08:05/04/18 08:05/04/18 08:05/04/18 08:05/02/18 10:58 General appearance: age & developmentally appropriate - Musculoskeletal Gait: normal Station: relaxed Strength & Tone: normal for patient - Psychiatric Patient Orientation: Yes Person, Yes Time, Yes Place Level of alertness: Alert Behavior: calm, cooperative Psychomotor activity: Normal Eye Contact: Intense Contact Mood Description: Depressed Affect description: congruent with mood Speech Volume: Normal Speech pattern: slowed Language & Vocabulary: consistent with education Thought Process: Linear Thought Content: No Suicidal ideation, No Homicidal ideation, No Overt delusions Perceptual Disturbances: Yes Reacting to internal stimuli, Yes Auditory hallucinations Attention Span Ability: Capable of Focused Attention Memory Description: Grossly Intact Patient Reliability: Reliable Historian Fund of knowledge: Yes abstraction ability, Yes aware of current events Intelligence Estimate: Average Judgment: Fair Insight: Partial
[2018-05-05] MEDS: carBAMazepine 200 MG TABLET PO SCH ×2 (08:11→20:34)
[2018-05-05] MEDS: Nicotine 14 MG PATCH.TD24 TD SCH (08:12)
[2018-05-05] MEDS: FLUoxetine 20 MG CAPSULE PO SCH (08:12)
--- NOTE | 2018-05-05 14:33 | Psychiatry Progress Note ---
Date of Encounter: 05/05/18 Time of Encounter: 14:30 Subjective Interval history: The patient is a 32-year-old white female. Chief complaint the voices are still there but not as loud. I am waiting for the medicine to help with my depression. History of present illness the patient is known to me from November 2017. The patient was placed on an vague and carbamazepine for diagnosis of bipolar 2. The patient had reported auditory hallucinations although she has not attended the hallucinations are. Be distracted by them. The patient also had migraine headaches. Prior to admission the patient was seen. Prozac was increased to 40 mg per day upon admission in [place] was increased to 9 mg. Throughout this period of time the patient has not had carbamazepine checked yet blood levels of 8.0 and 8.8 hopeful for some patients with bipolar disorder. Also the medicine tends to auto induce itself. The patient has talked to the social services analyst about options. The patient reports is difficult to get to groups at [facility] [place]. Side effects including dizziness unsteadiness increase in blood sugar and low sodium were discussed this possible side effects. Patient agreed to have labs drawn tomorrow morning Review of Systems Neurological: Reports: headache Psychiatric: Reports: depression, anxiety, suicidal ideation, auditory hallucinations Results - Vital Signs Vital Signs: Temp Pulse Resp BP Pulse Ox 97.9 F 105 14 91/63 97 05/05/18 08:46 05/05/18 08:46 05/05/18 08:46 05/05/18 08:46 05/02/18 10:58 Assessment and Plan (1) Suicidal ideation Current visit: No Status: Resolved Plan: Suicide Precautions per unit protocol, Secure weapons Risks, benefits, side effects, alternatives discussed w/pt: Yes Patient agreeable to treatment : Yes (2) Post traumatic stress disorder (PTSD) Current visit: No Status: Chronic Plan: Continue hospitalization, Close observation, Suicide Precautions per unit protocol Risks, benefits, side effects, alternatives discussed w/pt: Yes Patient agreeable to treatment: Yes (3) Migraine Current visit: No Status: Acute Plan: Monitor sleep, Monitor appetite Risks, benefits, side effects, alternatives discussed w/pt: Yes Patient agreeable to treatment: Yes Qualifiers: Migraine type: without aura Status migrainosus presence: without status migrainosus Intractability: not intractable Qualified Code(s): G43.009 - Migraine without aura, not intractable, without status migrainosus (4) Bipolar affective disorder, current episode depressed Current visit: No Status: Acute Plan: Continue hospitalization, Close observation, Suicide Precautions per unit protocol, Encourage participation in unit milieu, Group Therapy, Monitor sleep, Monitor appetite, Secure weapons, Family/Supportive other meeting Risks, benefits, side effects, alternatives discussed w/pt: Yes Patient agreeable to treatment: Yes Qualifiers: Current episode severity: severe Psychotic features: with psychotic features Qualified Code(s): F31.5 - Bipolar disorder, current episode depressed, severe, with psychotic features Consult Discharge Plan - Plan Referrals: [facility] [Outside] - 05/15/18 11:00 am (The above appointment is with Sara Mcgill for outpatient mental health counseling services. You will also see Elva Willams for outpatient psychiatric assessment and medication management services on 05/29/2018 at 3:15 PM.) Psychiatry Exam - Constitutional Vitals: Temp Pulse Resp BP Pulse Ox 97.9 F 105 14 91/63 97 05/05/18 08:46 05/05/18 08:46 05/05/18 08:46 05/05/18 08:46 05/02/18 10:58 General appearance: age & developmentally appropriate, well-groomed, well- nourished - Musculoskeletal Gait: normal Station: relaxed Strength & Tone: normal for patient - Psychiatric Patient Orientation: Yes Person, Yes Time, Yes Place Level of alertness: Alert Behavior: calm, cooperative Psychomotor activity: Normal Eye Contact: Maintains Eye Contact Affect description: congruent with mood, full range Speech Volume: Soft/Quiet Speech pattern: normal rate, normal rhythm, normal tone, fluent, spontaneous Language & Vocabulary: consistent with education Thought Process: Linear, Goal Oriented Thought Content: No Suicidal ideation, No Homicidal ideation, No Overt delusions Perceptual Disturbances: Yes Auditory hallucinations, No Visual hallucinations Attention Span Ability: Capable of Focused Attention Memory Description: Grossly Intact Patient Reliability: Questionable Historian Fund of knowledge: Yes abstraction ability, Yes aware of current events Intelligence Estimate: Average Judgment: Limited Insight: Minimal
[2018-05-05] MEDS: traZODone 50 MG TABLET PO PRN (20:34)
[2018-05-06] MEDS: FLUoxetine 20 MG CAPSULE PO SCH (08:34)
[2018-05-06] MEDS: carBAMazepine 200 MG TABLET PO SCH ×2 (08:35→20:20)
[2018-05-06] MEDS: Nicotine 14 MG PATCH.TD24 TD SCH (08:35)
[2018-05-06 09:01] LABS: Hematocrit 42.7 % (35.3-44.9); Hemoglobin 14.5 g/dL (11.5-15.4); Mean Corpuscular Hemoglobin 31.3 pg (28.0-33.3); Mean Corpuscular Volume 92.2 fL (83.0-100.0); Mean Platelet Volume 10.6 fL (9.4-12.4); Platelet Count 236 K/mcL (140-400); Red Blood Count 4.63 M/mcL (3.82-4.97); Red Cell Distribution Width 11.5 % (11.5-14.5)
[2018-05-06 09:26] LABS: BUN/Creatinine Ratio 20 (6-26); Blood Urea Nitrogen 16 mg/dL (6-20); Calcium 9.8 mg/dL (8.6-10.3); Carbon Dioxide 28 mEq/L (23-29); Chloride 102 mEq/L (98-107); Glucose 93 mg/dL (70-105); Osmolality,Calculated 285 (280-300); Sodium 137 mEq/L (136-145); eGFR For Non-African Americans > 60 (> 60)
--- NOTE | 2018-05-06 15:35 | Psychiatry Progress Note ---
Date of Encounter: 05/06/18 Time of Encounter: 15:30 Subjective Interval history: ID the patient is a 32-year-old white female. Chief complaint I still hear the voices and I will have as much suicidal thinking. History of present illness. The patient has been up walking. She is free of suicidal and homicidal ideation. She reports auditory hallucinations. Overall the patient has a more calm demeanor and does not appear to be attending to hallucinations and delusions. Today the patient I reviewed the laboratory studies and found that the red blood cells white blood cells were within normal limits at the chemistries were normal including glucose and sodium and that the carbamazepine level was 6.0 my talk to her about what might be useful to get the Tegretol level IX.0 she agreed to taking carbamazepine 20 mg 3 times a day she felt this would be a tolerable regimen was willing to try it but she was worried about side effects which may include dizziness unsteadiness and double vision. She did not want to be discharged tomorrow but would be willing to consider discharge as she has been some improvement. Nonetheless she was worried about side effects of the medicine Review of Systems Psychiatric: Reports: depression, anxiety, suicidal ideation, auditory hallucinations Results - Vital Signs Vital Signs: Temp Pulse Resp BP Pulse Ox 97.7 F 94 16 103/73 97 05/06/18 09:00 05/06/18 09:00 05/06/18 09:00 05/06/18 09:00 05/02/18 10:58 - Drug Levels and Toxicology Drug Levels and Toxicology: Drug Levels and Toxicity 05/06/18 08:39 Carbamazepine 6 - Labs Labs: Laboratory Results - last 24 hr 05/06/18 05/06/18 05/06/18 08:39 08:39 08:39 WBC 6.9 RBC 4.63 Hgb 14.5 Hct 42.7 MCV 92.2 MCH 31.3 MCHC 34.0 RDW 11.5 Plt Count 236 D MPV 10.6 Sodium 137 Potassium 4.0 Chloride 102 Carbon Dioxide 28 BUN 16 Creatinine 0.80 Est GFR ( Amer) > 60 Est GFR (Non-Af Amer) > 60 BUN/Creatinine Ratio 20 Glucose 93 Calculated Osmolality 285 Calcium 9.8 Carbamazepine 6 Assessment and Plan (1) Suicidal ideation Current visit: No Status: Resolved Plan: Suicide Precautions per unit protocol, Secure weapons Risks, benefits, side effects, alternatives discussed w/pt: Yes Patient agreeable to treatment : Yes (2) Post traumatic stress disorder (PTSD) Current visit: No Status: Chronic Plan: Continue hospitalization, Monitor sleep, Monitor appetite Risks, benefits, side effects, alternatives discussed w/pt: Yes Patient agreeable to treatment: Yes (3) Migraine Current visit: No Status: Acute Risks, benefits, side effects, alternatives discussed w/pt: Yes Patient agreeable to treatment: Yes Qualifiers: Migraine type: without aura Status migrainosus presence: without status migrainosus Intractability: not intractable Qualified Code(s): G43.009 - Migraine without aura, not intractable, without status migrainosus (4) Bipolar affective disorder, current episode depressed Current visit: No Status: Acute Plan: Continue hospitalization, Close observation, Suicide Precautions per unit protocol, Encourage participation in unit milieu, Group Therapy, Monitor sleep, Monitor appetite, Secure weapons Risks, benefits, side effects, alternatives discussed w/pt: Yes Patient agreeable to treatment: Yes Qualifiers: Current episode severity: severe Psychotic features: with psychotic features Qualified Code(s): F31.5 - Bipolar disorder, current episode depressed, severe, with psychotic features Consult Discharge Plan - Plan Referrals: [facility] [Outside] - 05/15/18 11:00 am (The above appointment is with Sara Mcgill for outpatient mental health counseling services. You will also see Elva Willams for outpatient psychiatric assessment and medication management services on 05/29/2018 at 3:15 PM.) Psychiatry Exam - Constitutional Vitals: Temp Pulse Resp BP Pulse Ox 97.7 F 94 16 103/73 97 05/06/18 09:00 05/06/18 09:00 05/06/18 09:00 05/06/18 09:00 05/02/18 10:58 General appearance: age & developmentally appropriate, well-groomed, well- nourished - Musculoskeletal Gait: normal Station: relaxed Strength & Tone: normal for patient - Psychiatric Patient Orientation: Yes Person, Yes Time, Yes Place Level of alertness: Alert Behavior: calm, cooperative Psychomotor activity: Slowed Eye Contact: Maintains Eye Contact Mood Description: Depressed Affect description: congruent with mood, full range, dysphoric Speech Volume: Normal Speech pattern: normal rate, normal rhythm, normal tone, fluent, spontaneous Language & Vocabulary: consistent with education Thought Process: Linear, Goal Oriented Thought Content: No Suicidal ideation, No Homicidal ideation, No Overt delusions Perceptual Disturbances: Yes Auditory hallucinations, No Visual hallucinations Attention Span Ability: Capable of Focused Attention Memory Description: Grossly Intact Patient Reliability: Questionable Historian Fund of knowledge: Yes abstraction ability, Yes aware of current events Intelligence Estimate: Average Judgment: Fair Insight: Partial
[2018-05-06] MEDS: traZODone 50 MG TABLET PO PRN (20:20)
[2018-05-07] MEDS: carBAMazepine 200 MG TABLET PO SCH ×3 (09:16→21:03)
[2018-05-07] MEDS: Nicotine 14 MG PATCH.TD24 TD SCH (09:16)
[2018-05-07] MEDS: FLUoxetine 20 MG CAPSULE PO SCH (09:17)
--- NOTE | 2018-05-07 12:24 | Psychiatry Progress Note ---
Date of Encounter: 05/07/18 Time of Encounter: 12:00 Subjective Interval history: She is a 32-year-old female Chief complaint: I still hear voices and they have not increased my medicine yet today. History of present illness the patient has continued to deny HI or SI. She has been in her room part of the day and she slept part of yesterday even with this she slept 8 hours at night. I discussed with her the fact that she has had several hospitalizations but is probably benefit from multiple hospital days. At this point she was told that she has reached maximal hospital benefit. The patient has tolerated Tegretol and I will increase the dose of medicine however further observation to be performed on an outpatient basis. She was informed of her follow-up appointments and the need for ongoing counseling. The patient would like to return home tomorrow but further observation and overnight as necessary the patient is reported auditory hallucinations although attending to hallucinations is not observed. The patient has not reported ataxia and dysarthria or diplopia but has not had a full 600 mg of Tegretol as yet today. The patient will be observed for potential side effects and drug drug interactions Review of Systems Psychiatric: Reports: depression, suicidal ideation, auditory hallucinations Results - Vital Signs Vital Signs: Temp Pulse Resp BP Pulse Ox 96.1 F L 84 20 105/76 97 05/07/18 09:00 05/07/18 09:00 05/07/18 09:00 05/07/18 09:00 05/02/18 10:58 Assessment and Plan (1) Suicidal ideation Current visit: No Status: Resolved Risks, benefits, side effects, alternatives discussed w/pt: Yes Patient agreeable to treatment: Yes (2) Post traumatic stress disorder (PTSD) Current visit: No Status: Chronic Risks, benefits, side effects, alternatives discussed w/pt: Yes Patient agreeable to treatment: Yes (3) Migraine Current visit: No Status: Acute Risks, benefits, side effects, alternatives discussed w/pt: Yes Patient agreeable to treatment: Yes Qualifiers: Migraine type: without aura Status migrainosus presence: without status migrainosus Intractability: not intractable Qualified Code(s): G43.009 - Migraine without aura, not intractable, without status migrainosus (4) Bipolar affective disorder, current episode depressed Current visit: No Status: Acute Plan: Continue hospitalization, Close observation, Suicide Precautions per unit protocol, Encourage participation in unit milieu, Group Therapy, Monitor sleep, Monitor appetite, Secure weapons Risks, benefits, side effects, alternatives discussed w/pt: Yes Patient agreeable to treatment: Yes Qualifiers: Current episode severity: severe Psychotic features: with psychotic features Qualified Code(s): F31.5 - Bipolar disorder, current episode depressed, severe, with psychotic features Consult Discharge Plan - Plan Referrals: [facility] [Outside] - 05/15/18 11:00 am (The above appointment is with Sara Mcgill for outpatient mental health counseling services. You will also see Elva Imer for outpatient psychiatric assessment and medication management services on 05/29/2018 at 3:15 PM.) Psychiatry Exam - Constitutional Vitals: Temp Pulse Resp BP Pulse Ox 96.1 F L 84 20 105/76 97 05/07/18 09:00 05/07/18 09:00 05/07/18 09:00 05/07/18 09:00 05/02/18 10:58 General appearance: age & developmentally appropriate, well-groomed, well- nourished - Musculoskeletal Gait: normal Station: relaxed Strength & Tone: normal for patient - Psychiatric Patient Orientation: Yes Person, Yes Time, Yes Place Level of alertness: Alert Behavior: calm, cooperative Psychomotor activity: Slowed Eye Contact: Maintains Eye Contact Mood Description: Anxious Affect description: congruent with mood, anxious Speech Volume: Normal Speech pattern: normal rate, normal rhythm, normal tone, fluent, spontaneous Language & Vocabulary: consistent with education Thought Process: Linear, Goal Oriented Thought Content: No Suicidal ideation, No Homicidal ideation, No Overt delusions Perceptual Disturbances: Yes Auditory hallucinations, No Visual hallucinations Attention Span Ability: Capable of Focused Attention Memory Description: Grossly Intact Patient Reliability: Questionable Historian Fund of knowledge: Yes abstraction ability, Yes aware of current events Intelligence Estimate: Average Judgment: Limited Insight: Minimal
[2018-05-07] MEDS: traZODone 50 MG TABLET PO PRN (21:02)
--- NOTE | 2018-05-08 08:46 | Discharge Summary ---
Date of Encounter: 05/08/18 Time of Encounter: 08:45 Diagnosis - Discharge Diagnosis (1) Suicidal ideation Status: Resolved (2) Post traumatic stress disorder (PTSD) Status: Chronic (3) Migraine Status: Chronic Qualifiers: Migraine type: without aura Status migrainosus presence: without status migrainosus Intractability: not intractable Qualified Code(s): G43.009 - Migraine without aura, not intractable, without status migrainosus (4) Bipolar affective disorder, current episode depressed Status: Acute Qualifiers: Current episode severity: severe Psychotic features: with psychotic features Qualified Code(s): F31.5 - Bipolar disorder, current episode depressed, severe, with psychotic features Medications - Discharge Medications Prescriptions: Benztropine [Cogentin] 1 mg PO BID 30 Days #60 tablet carBAMazepine [Tegretol] 200 mg PO TID 30 Days #90 tablet FLUoxetine HCl [Prozac] 40 mg PO DAILY 30 Days #30 capsule Paliperidone [Invega] 9 mg PO DAILY 30 Days #30 tab.er.[id number] Albuterol Sulfate [Albuterol Inhaler] 2 puff IH Q4HR PRN #1 [id number] 12/09/17 [Rx] carBAMazepine [Tegretol] 200 mg PO BID #60 tablet 12/16/17 [Rx] Benztropine [Cogentin] 1 mg PO BID 30 Days #60 tablet 05/08/18 [Rx] FLUoxetine HCl [Prozac] 40 mg PO DAILY 30 Days #30 capsule 05/08/18 [Rx] Paliperidone [Invega] 9 mg PO DAILY 30 Days #30 tab.er.[email or web address] 05/08/18 [Rx] carBAMazepine [Tegretol] 200 mg PO TID 30 Days #90 tablet 05/08/18 [Rx] 3 Allergy/AdvReac Type Severity Reaction Status Date / Time tramadol [From Ultram] Allergy See Verified 05/02/18 10:46 Comments propoxyphene AdvReac Vomiting Verified 05/02/18 10:46 [From Darvocet-N] Results Procedures and tests throughout hospitalization: Completed Lab Orders Category Date Time Status CBC no Diff [Complete Blood Count w/o Diff] [HEME] Lab 05/06/18 08:39 Completed Routine Carbamazepine (Tegretol) Routine Lab 05/06/18 08:39 Completed Chem 7 [Basic Metabolic Panel] Routine Lab 05/05/18 08:00 Completed Provider Date of admission: 05/02/18 13:42 Primary care physician: PCP NONE Discharging clinician: Hussein Perez Psychiatry Exam - Constitutional Vitals: Temp Pulse Resp BP Pulse Ox 97.6 F 88 17 96/66 97 05/07/18 20:38 05/07/18 20:38 05/07/18 20:38 05/07/18 20:38 05/02/18 10:58 General appearance: age & developmentally appropriate, well-groomed, well- nourished - Musculoskeletal Gait: normal Station: relaxed Strength & Tone: normal for patient - Psychiatric Patient Orientation: Yes Person, Yes Time, Yes Place Level of alertness: Alert Behavior: calm, cooperative Psychomotor activity: Normal Eye Contact: Maintains Eye Contact Mood Description: Euthymic/stable Affect description: congruent with mood, full range Speech Volume: Normal Speech pattern: normal rate, normal rhythm, normal tone, fluent, spontaneous Language & Vocabulary: consistent with education Thought Process: Linear, Goal Oriented Thought Content: No Suicidal ideation, No Homicidal ideation, No Overt delusions Perceptual Disturbances: Yes Auditory hallucinations, No Visual hallucinations Attention Span Ability: Capable of Sustained Attention Memory Description: Grossly Intact Patient Reliability: Questionable Historian Fund of knowledge: Yes abstraction ability, Yes aware of current events Intelligence Estimate: Average Judgment: Fair Insight: Partial Hospital Course Hospital course: Ms. Chen is a 32 year old female The patient is a 32-year-old white female. She was admitted for worsening depression and she reported voices. She was admitted on 05/02/2018. She remained a voluntary patient during that time. The patient was diagnosed with bipolar disorder depressed severe with psychosis and she reported auditory hallucinations. However objectively the patient did not attend the hallucinations. She was somewhat psychomotor retarded and somewhat dysphoric on the unit. She did not participate in some groups although in other she did. The patient was able to tolerate increases in paliperidone and carbamazepine. Carbamazepine level .0 was obtained at a dose of 400 mg per day surgery dose was increased to 600 mg per day the patient did not have significant EPS. Prior to discharge she had no homicidal or suicidal ideation and while she reported auditory hallucinations she reported that these have become less intrusive and less bothersome. She was felt to have obtained maximum hospital benefit and transition was made to outpatient setting. - Time Spent with Patient Total time spent providing and/or coordinating discharge services: Less than 30 minutes Assessment and Plan - Patient/Caregiver Discharge Instructions Activity: resume usual activities as tolerated Diet: regular diet Additional Instructions: Patient was advised to avoid alcohol and drugs abuse - Follow up Plan Follow up with: Yonatan Boswell [facility] [Outside] - 05/15/18 11:00 am (The above appointment is with Sara Mcgill for outpatient mental health counseling services. You will also see Elva Willams for outpatient psychiatric assessment and medication management services on 05/29/2018 at 3:15 PM.) Functional capacity at discharge: independent ambulation Overall status at discharge: patient is back to baseline Disposition: Home, Self-Care Quality - Multiple Antipsychotics Patient discharged on 2 or more antipsychotic medications: No Procedures - Procedures Procedures: Medication Management, Crisis Stabilization, Supportive Therapy, Group Therapy, Psychoeducational Therapy
[2018-05-08 08:56] VITALS: BP 108/74
[2018-05-08] MEDS: carBAMazepine 200 MG TABLET PO SCH (09:34)
[2018-05-08] MEDS: FLUoxetine 20 MG CAPSULE PO SCH (09:34)
[2018-05-08] MEDS: Nicotine 14 MG PATCH.TD24 TD SCH (09:36)
== END 2018-05-08 11:07 | disposition home or self-care (01) | DRG 753 ==
LOC: EMEROOARM 10:42 → 1ANU 13:42
PROVIDERS: ADMIT General Practice; ATTEND General Practice

== ENCOUNTER 2018-07-04 14:03 | Observation (INO) ==
--- NOTE | 2018-07-04 14:20 | Emergency Department Note ---
Disposition Clinical Impression: Suicidal ideation Drug overdose Qualifiers: Encounter type: initial encounter Injury intent: intentional self-harm Qualifi ed Code(s): T50.902A - Poisoning by unspecified drugs, medicaments and biological substances, intentional self-harm, initial encounter Disposition: Admitted As Inpatient Psych HPI - General Chief Complaint: ED Psychiatric Symptoms Stated Complaint: SI Time Seen by Provider: 07/04/18 14:14 Source: EMS Nursing Notes Reviewed: Yes Vital Signs Reviewed: Yes - History of Present Illness HPI Narrative: 32-year-old female presents emergency department with concern for overdose. Patient took 20 40 mg tablets of fluoxetine one hour ago. She has also taken 10 0.5 mg of benztropine as well. She denies any other medication use. Patient states that she has had suicidal ideations in the past. She does not report any homicidal ideations, auditory hallucinations, visual hallucinations. - Related Data Home Medications Medication Instructions Recorded Confirmed Benztropine [Cogentin] 0.5 mg PO BID 07/04/18 Trazodone HCl 150 mg PO HS PRN 07/04/18 Previous Rx's Medication Instructions Recorded Albuterol Sulfate [Albuterol 2 puff IH Q4HR PRN #1 hfa.aer.ad 12/09/17 Inhaler] carBAMazepine [Tegretol] 200 mg PO BID #60 tablet 12/16/17 FLUoxetine HCl [Prozac] 40 mg PO DAILY 30 Days #30 capsule 05/08/18 Paliperidone [Invega] 9 mg PO DAILY 30 Days #30 tab.er.24 05/08/18 Allergies Allergy/AdvReac Type Severity Reaction Status Date / Time tramadol [From Ultram] Allergy See Verified 05/02/18 10:46 Comments propoxyphene AdvReac Vomiting Verified 05/02/18 10:46 [From Darvocet-N] All systems ED: reviewed and negative except as stated. Review of Systems: As Per HPI Constitutional: Denies: fever Cardiovascular: Denies: chest pain Respiratory: Denies: dyspnea Gastrointestinal: Reports: nausea. Denies: abdominal pain Musculoskeletal: Denies: back pain, neck pain Neurological: Denies: weakness, numbness, paresthesias Psychiatric: Reports: depression, suicidal thoughts. Denies: homicidal thoughts Past Medical History - Past Medical History Medical history: Reports: arthritis, migraine Surgical history: Reports: Psychiatric history: Reports: bipolar, depression, prior suicide attempt, schizophrenia, previous psychiatric hospitalization [employer] history: Reports: bilateral tubal ligation - Social History Smoking Status: Current every day smoker Smokeless Tobacco Status: No Alcohol use: Reports: none Drug use: Reports: marijuana Physical Exam - General Limitations: no limitations General appearance: alert, in no apparent distress - Head Head exam: normocephalic - Eye Eye exam: Present: EOMI, mydriasis - ENT ENT exam: normal oropharynx - Neck Neck exam: Present: trachea midline - Chest Chest inspection: Present: symmetric chest wall rise - Respiratory Respiratory exam: Present: normal lung sounds bilaterally. Absent: respiratory distress, accessory muscle use - Cardiovascular Cardiovascular exam: Present: regular rate, normal rhythm, normal heart sounds - Abdominal Exam Abdominal exam: Present: soft, Non-Tender - Neurological Exam Neurological exam: Present: alert, reflexes normal, other (GCS 15, no evidence of mild clonus) - Psychiatric Psychiatric exam: Present: suicidal ideation - Skin Skin exam: Present: warm, dry, intact Course Vital Signs Temperature 97.8 F 07/04/18 14:06 Pulse Rate 100 07/04/18 14:06 Respiratory Rate 16 07/04/18 14:06 Blood Pressure 87/56 07/04/18 14:06 O2 Sat by Pulse Oximetry 99 07/04/18 14:06 Temperature 97.7 F 07/04/18 17:30 Pulse Rate 105 07/04/18 17:30 Respiratory Rate 17 07/04/18 17:30 Blood Pressure 128/87 07/04/18 17:30 O2 Sat by Pulse Oximetry 96 07/04/18 19:27 Oxygen Delivery Oxygen Delivery Room Air Psych - MDM Narrative Medical decision making narrative: 32-year-old female presents to the emergency department with concern for overdose of fluoxetine administer pain. Patient is alert, but appears slightly drowsy on physical exam. EKG reveals mild evidence of QT prolongation, but no other signs of toxicology. I spoke with poison control center. They stated to check labs on patient continue monitoring. Concern for the possibility of hyponatremia, and other signs of anti-cholinergic. Patient mildly tachycardic initially. Reporting symptoms of nausea. Patient also has mydriasis. No evidence of clonus or fever to suggest serotonin syndrome. Patient was given fluids here in the emergency department. She was stable throughout her stay. Labs were within normal limits. Patient admitted to the hospitalist prior to clearance for psychiatry to evaluate her. Vital Signs Temperature 97.8 F 07/04/18 14:06 Pulse Rate 100 07/04/18 14:06 Respiratory Rate 16 07/04/18 14:06 Blood Pressure 87/56 07/04/18 14:06 O2 Sat by Pulse Oximetry 99 07/04/18 14:06 Temperature 97.7 F 07/04/18 17:30 Pulse Rate 105 07/04/18 17:30 Respiratory Rate 17 07/04/18 17:30 Blood Pressure 128/87 07/04/18 17:30 O2 Sat by Pulse Oximetry 96 07/04/18 19:27 Oxygen Delivery Oxygen Delivery Room Air - Lab Data Result diagrams: 07/04/18 14:42 07/04/18 14:42 Lab Results 07/04/18 07/04/18 07/04/18 Range/Units 14:42 14:42 14:42 WBC 9.3 (4.3-11.1) K/mcL RBC 4.41 (3.82-4.97) M/mcL Hgb 13.9 (11.5-15.4) g/dL Hct 40.8 (35.3-44.9) % MCV 92.5 (83.0-100.0) fL MCH 31.5 (28.0-33.3) pg MCHC 34.1 (31.6-35.5) g/dL RDW 11.9 (11.5-14.5) % Plt Count 221 (140-400) K/mcL MPV 11.2 (9.4-12.4) fL Immature Gran % 0.2 (0-4) % Seg Neutrophils % 70.1 % Lymphocytes % 19.7 % Monocytes % 6.8 % Eosinophils % 2.6 % Basophils % 0.6 % Neutrophils # 6.5 (1.6-8.9) K/mcL Lymphocytes # 1.8 (0.6-4.6) K/mcL Monocytes # 0.6 (0.0-1.3) K/mcL Eosinophils # 0.2 (0.0-0.6) K/mcL Basophils # 0.1 (0.0-0.2) K/mcL Sodium (136-145) mEq/L Potassium (3.5-5.1) mEq/L Chloride (98-107) mEq/L Carbon Dioxide (23-29) mEq/L BUN (6-20) mg/dL Creatinine (0.60-1.20) mg/dL Est GFR ( Amer) (> 60) Est GFR (Non-Af Amer) (> 60) BUN/Creatinine Ratio (6-26) Glucose (70-105) mg/dL Calculated Osmolality (280-300) Calcium (8.6-10.3) mg/dL Magnesium (1.6-2.6) mg/dL Serum , Qual (Negative) Urine Color Yellow (Yellow) Urine Clarity Cloudy A (Clear) Urine pH 6.0 (5.0-8.0) pH Units Ur Specific [place] 1.022 (1.010-1.025) Urine Protein Negative (Neg-Trace) mg/dL Urine Glucose (UA) Normal (Normal) mg/dL Urine Ketones Negative (Negative) mg/dL Urine Blood Trace H (Negative) Urine Nitrite Negative (Negative) Urine Bilirubin Small H (Negative) Urine Urobilinogen Normal (Normal) mg/dL Ur Leukocyte Esterase Negative (Negative) Urine Microscopic RBC 3-5 H (0-3) per hpf Urine Microscopic WBC 5-15 H (0-3) per hpf Ur Squamous Epith Cells Many H (None-Few) per lpf Urine Bacteria Few (None-Few) per hpf Hyaline Casts None Seen (None-Few) per lpf Salicylates (15.0-30.0) mg/dL Urine Opiates Screen Negative (Kleese=742) ng/mL Acetaminophen (10-20) mcg/mL Ur Barbiturates Screen Negative (Bkmamx=319) ng/mL Ur Phencyclidine Scrn Negative (Cutoff=25) ng/mL Ur Amphetamines Screen Negative (Zhouxd=7940) ng/mL U Benzodiazepines Scrn Negative (Mklgwh=594) ng/mL Urine Cocaine Screen Negative (Cutoff= 300) ng/mL U Marijuana (THC) Screen Positive H (Cutoff = 50) ng/mL Ur Drug Screen Interp See Below Ethyl Alcohol (Less than 10) mg/dL 07/04/18 07/04/18 Range/Units 14:42 14:42 WBC (4.3-11.1) K/mcL RBC (3.82-4.97) M/mcL Hgb (11.5-15.4) g/dL Hct (35.3-44.9) % MCV (83.0-100.0) fL MCH (28.0-33.3) pg MCHC (31.6-35.5) g/dL RDW (11.5-14.5) % Plt Count (140-400) K/mcL MPV (9.4-12.4) fL Immature Gran % (0-4) % Seg Neutrophils % % Lymphocytes % % Monocytes % % Eosinophils % % Basophils % % Neutrophils # (1.6-8.9) K/mcL Lymphocytes # (0.6-4.6) K/mcL Monocytes # (0.0-1.3) K/mcL Eosinophils # (0.0-0.6) K/mcL Basophils # (0.0-0.2) K/mcL Sodium 140 (136-145) mEq/L Potassium 3.4 L (3.5-5.1) mEq/L Chloride 105 (98-107) mEq/L Carbon Dioxide 28 (23-29) mEq/L BUN 12 (6-20) mg/dL Creatinine 0.68 (0.60-1.20) mg/dL Est GFR ( Amer) > 60 (> 60) Est GFR (Non-Af Amer) > 60 (> 60) BUN/Creatinine Ratio 18 (6-26) Glucose 98 (70-105) mg/dL Calculated Osmolality 290 (280-300) Calcium 9.6 (8.6-10.3) mg/dL Magnesium 1.9 (1.6-2.6) mg/dL Serum , Qual Negative (Negative) Urine Color (Yellow) Urine Clarity (Clear) Urine pH (5.0-8.0) pH Units Ur Specific [place] (1.010-1.025) Urine Protein (Neg-Trace) mg/dL Urine Glucose (UA) (Normal) mg/dL Urine Ketones (Negative) mg/dL Urine Blood (Negative) Urine Nitrite (Negative) Urine Bilirubin (Negative) Urine Urobilinogen (Normal) mg/dL Ur Leukocyte Esterase (Negative) Urine Microscopic RBC (0-3) per hpf Urine Microscopic WBC (0-3) per hpf Ur Squamous Epith Cells (None-Few) per lpf Urine Bacteria (None-Few) per hpf Hyaline Casts (None-Few) per lpf Salicylates 9.0 L (15.0-30.0) mg/dL Urine Opiates Screen (Cpfsko=989) ng/mL Acetaminophen < 10 L (10-20) mcg/mL Ur Barbiturates Screen (Wscbsv=305) ng/mL Ur Phencyclidine Scrn (Cutoff=25) ng/mL Ur Amphetamines Screen (Hvntbv=5812) ng/mL U Benzodiazepines Scrn (Whirbc=050) ng/mL Urine Cocaine Screen (Cutoff= 300) ng/mL U Marijuana (THC) Screen (Cutoff = 50) ng/mL Ur Drug Screen Interp Ethyl Alcohol < 10 (Less than 10) mg/dL - EKG Data EKG attestation: Yes I reviewed and interpreted this EKG. EKG results narrative: 14:30 Heart rate 108 bpm, [place] 118 ms, QRS duration 93 ms, QT 352 ms, normal axis. Sinus tachycardia with a ventricular rate of 108 bpm. No evidence of any ischemic ST changes. QT that is calculated is mildly prolonged, no tall R-wave in aVR, no QRS widening, no right axis deviation. Psychiatric Medical Clearance - Medical Clearance Checklist Medical History: No Social History Section defined Current Vitals: Last Vital Signs Temp 97.7 F 07/04/18 17:30 Pulse 105 07/04/18 17:30 Resp 17 07/04/18 17:30 BP 128/87 07/04/18 17:30 Pulse Ox 96 07/04/18 19:27 Psychiatric Lab Panel: Drug Levels and Toxicity 07/04/18 07/04/18 14:42 14:42 Urine Opiates Screen Negative Acetaminophen < 10 L Ur Barbiturates Screen Negative Ur Phencyclidine Scrn Negative Ur Amphetamines Screen Negative U Benzodiazepines Scrn Negative Urine Cocaine Screen Negative U Marijuana (THC) Screen Positive H Ethyl Alcohol < 10 Abnormal Labs: Abnormal lab results Potassium 3.4 mEq/L (3.5-5.1) L 07/04/18 14:42 Urine Clarity Cloudy (Clear) A 07/04/18 14:42 Urine Blood Trace (Negative) H 07/04/18 14:42 Urine Bilirubin Small (Negative) H 07/04/18 14:42 Urine Microscopic RBC 3-5 per hpf (0-3) H 07/04/18 14:42 Urine Microscopic WBC 5-15 per hpf (0-3) H 07/04/18 14:42 Ur Squamous Epith Cells Many per lpf (None-Few) H 07/04/18 14:42 Salicylates 9.0 mg/dL (15.0-30.0) L 07/04/18 14:42 Acetaminophen < 10 mcg/mL (10-20) L 07/04/18 14:42 U Marijuana (THC) Screen Positive ng/mL (Cutoff = 50) H 07/04/18 14:42 Statement of Medical Clearance: I have evaluated the patient, reviewed diagnostic information, and certify that the patient's medical condition is sufficiently stable that transfer to the psychiatric unit does not pose a significant risk of deterioration.
[2018-07-04] MEDS ORDERED: 0.9 % Sodium Chloride 1,000 ML IVC ONE (14:42)
[2018-07-04 14:49] LABS: Bilirubin,Urine Small (Negative); Blood,Urine Trace (Negative); Clarity,Urine Cloudy (Clear); Color,Urine Yellow (Yellow); Glucose,Urine (UA) Normal (Normal); Ketones,Urine Negative (Negative); Leukocyte Esterase,Urine Negative (Negative); Nitrite,Urine Negative (Negative); Protein,Urine Negative (Neg-Trace); Specific Gravity,Urine 1.022 (1.010-1.025); Urobilinogen,Urine Normal (Normal)
[2018-07-04 14:51] LABS: Bacteria,Urine Few per hpf (None-Few); Hyaline Casts,Urine None Seen per lpf (None-Few); Squamous Epithelial Cell,Urine Many per lpf (None-Few)
[2018-07-04 15:08] LABS: Basophils # 0.1 K/mcL (0.0-0.2); Basophils % 0.6 %; Eosinophils # 0.2 K/mcL (0.0-0.6); Eosinophils % 2.6 %; Hematocrit 40.8 % (35.3-44.9); Hemoglobin 13.9 g/dL (11.5-15.4); Immature Granulocytes % 0.2 % (0-4); Lymphocytes # 1.8 K/mcL (0.6-4.6); Lymphocytes % 19.7 %; Mean Corpuscular HGB Conc 34.1 g/dL (31.6-35.5); Mean Corpuscular Hemoglobin 31.5 pg (28.0-33.3); Mean Corpuscular Volume 92.5 fL (83.0-100.0); Mean Platelet Volume 11.2 fL (9.4-12.4); Monocytes # 0.6 K/mcL (0.0-1.3); Monocytes % 6.8 %; Neutrophils # 6.5 K/mcL (1.6-8.9); Platelet Count 221 K/mcL (140-400); Red Blood Count 4.41 M/mcL (3.82-4.97); Red Cell Distribution Width 11.9 % (11.5-14.5); Segmented Neutrophils % 70.1 %
[2018-07-04 15:20] LABS: Acetaminophen < 10 mcg/mL (10-20); BUN/Creatinine Ratio 18 (6-26); Blood Urea Nitrogen 12 mg/dL (6-20); Calcium 9.6 mg/dL (8.6-10.3); Carbon Dioxide 28 mEq/L (23-29); Chloride 105 mEq/L (98-107); Ethanol < 10 mg/dL (Less than 10); Glucose 98 mg/dL (70-105); Osmolality,Calculated 290 (280-300); Potassium 3.4 mEq/L (3.5-5.1); Sodium 140 mEq/L (136-145); eGFR For Non-African Americans > 60 (> 60)
[2018-07-04 15:25] LABS: Amphetamine Screen,Urine Negative ng/mL (Cutoff=1000); Barbiturate Screen,Urine Negative ng/mL (Cutoff=200); Benzodiazepines Screen,Urine Negative ng/mL (Cutoff=200); Cannabinoid Screen,Urine Positive ng/mL (Cutoff = 50); Cocaine Screen,Urine Negative ng/mL (Cutoff= 300); Opiate Screen,Urine Negative ng/mL (Cutoff=300); Phencyclidine Screen,Urine Negative ng/mL (Cutoff=25)
--- NOTE | 2018-07-04 15:47 | Emergency Department Note ---
Disposition Clinical Impression: Suicidal ideation Disposition: Admitted As Inpatient Referrals: NONE,PCP [Primary Care Provider] - Forms: ED Satisfaction Letter General Adult HPI - General Chief complaint: ED Psychiatric Symptoms Stated complaint: SI Time Seen by Provider: 07/04/18 14:14 Source: EMS Limitations: no limitations - History of Present Illness Pain Scale: 0 - Related Data Home Medications Medication Instructions Recorded Confirmed Benztropine [Cogentin] 0.5 mg PO BID 07/04/18 Trazodone HCl 150 mg PO HS PRN 07/04/18 Previous Rx's Medication Instructions Recorded Albuterol Sulfate [Albuterol 2 puff IH Q4HR PRN #1 hfa.aer.ad 12/09/17 Inhaler] carBAMazepine [Tegretol] 200 mg PO BID #60 tablet 12/16/17 FLUoxetine HCl [Prozac] 40 mg PO DAILY 30 Days #30 capsule 05/08/18 Paliperidone [Invega] 9 mg PO DAILY 30 Days #30 tab.er.24 05/08/18 Allergies Allergy/AdvReac Type Severity Reaction Status Date / Time tramadol [From Ultram] Allergy See Verified 05/02/18 10:46 Comments propoxyphene AdvReac Vomiting Verified 05/02/18 10:46 [From Darvocet-N] Constitutional: Denies: fever Cardiovascular: Denies: chest pain Respiratory: Denies: dyspnea Gastrointestinal: Reports: nausea. Denies: abdominal pain Musculoskeletal: Denies: back pain, neck pain Neurological: Denies: weakness, numbness, paresthesias Psychiatric: Reports: depression, suicidal thoughts. Denies: homicidal thoughts Past Medical History - Past Medical History Medical history: Reports: arthritis, migraine Surgical history: Reports: Psychiatric history: Reports: bipolar, depression, prior suicide attempt, schizophrenia, previous psychiatric hospitalization [employer] history: Reports: bilateral tubal ligation - Social History Smoking Status: Current every day smoker Smokeless Tobacco Status: No Alcohol use: Reports: none Drug use: Reports: marijuana Physical Exam - General Limitations: no limitations General appearance: alert, in no apparent distress Course Vital Signs Temperature 97.8 F 07/04/18 14:06 Pulse Rate 100 07/04/18 14:06 Respiratory Rate 16 07/04/18 14:06 Blood Pressure 87/56 07/04/18 14:06 O2 Sat by Pulse Oximetry 99 07/04/18 14:06 Temperature 97.8 F 07/04/18 14:06 Pulse Rate 100 07/04/18 14:06 Respiratory Rate 16 07/04/18 14:06 Blood Pressure 87/56 07/04/18 14:06 O2 Sat by Pulse Oximetry 99 07/04/18 14:06 Oxygen Delivery Oxygen Delivery Room Air Medical Decision Making - Lab Data Result diagrams: 07/04/18 14:42 07/04/18 14:42 Lab Results 07/04/18 07/04/18 07/04/18 Range/Units 14:42 14:42 14:42 WBC 9.3 (4.3-11.1) K/mcL RBC 4.41 (3.82-4.97) M/mcL Hgb 13.9 (11.5-15.4) g/dL Hct 40.8 (35.3-44.9) % MCV 92.5 (83.0-100.0) fL MCH 31.5 (28.0-33.3) pg MCHC 34.1 (31.6-35.5) g/dL RDW 11.9 (11.5-14.5) % Plt Count 221 (140-400) K/mcL MPV 11.2 (9.4-12.4) fL Immature Gran % 0.2 (0-4) % Seg Neutrophils % 70.1 % Lymphocytes % 19.7 % Monocytes % 6.8 % Eosinophils % 2.6 % Basophils % 0.6 % Neutrophils # 6.5 (1.6-8.9) K/mcL Lymphocytes # 1.8 (0.6-4.6) K/mcL Monocytes # 0.6 (0.0-1.3) K/mcL Eosinophils # 0.2 (0.0-0.6) K/mcL Basophils # 0.1 (0.0-0.2) K/mcL Sodium (136-145) mEq/L Potassium (3.5-5.1) mEq/L Chloride (98-107) mEq/L Carbon Dioxide (23-29) mEq/L BUN (6-20) mg/dL Creatinine (0.60-1.20) mg/dL Est GFR ( Amer) (> 60) Est GFR (Non-Af Amer) (> 60) BUN/Creatinine Ratio (6-26) Glucose (70-105) mg/dL Calculated Osmolality (280-300) Calcium (8.6-10.3) mg/dL Serum , Qual (Negative) Urine Color Yellow (Yellow) Urine Clarity Cloudy A (Clear) Urine pH 6.0 (5.0-8.0) pH Units Ur Specific [place] 1.022 (1.010-1.025) Urine Protein Negative (Neg-Trace) mg/dL Urine Glucose (UA) Normal (Normal) mg/dL Urine Ketones Negative (Negative) mg/dL Urine Blood Trace H (Negative) Urine Nitrite Negative (Negative) Urine Bilirubin Small H (Negative) Urine Urobilinogen Normal (Normal) mg/dL Ur Leukocyte Esterase Negative (Negative) Urine Microscopic RBC 3-5 H (0-3) per hpf Urine Microscopic WBC 5-15 H (0-3) per hpf Ur Squamous Epith Cells Many H (None-Few) per lpf Urine Bacteria Few (None-Few) per hpf Hyaline Casts None Seen (None-Few) per lpf Salicylates (15.0-30.0) mg/dL Urine Opiates Screen Negative (Fwtihd=705) ng/mL Acetaminophen (10-20) mcg/mL Ur Barbiturates Screen Negative (Rnvouh=545) ng/mL Ur Phencyclidine Scrn Negative (Cutoff=25) ng/mL Ur Amphetamines Screen Negative (Frvhpf=4891) ng/mL U Benzodiazepines Scrn Negative (Wiwtjs=000) ng/mL Urine Cocaine Screen Negative (Cutoff= 300) ng/mL U Marijuana (THC) Screen Positive H (Cutoff = 50) ng/mL Ur Drug Screen Interp See Below Ethyl Alcohol (Less than 10) mg/dL 07/04/18 07/04/18 Range/Units 14:42 14:42 WBC (4.3-11.1) K/mcL RBC (3.82-4.97) M/mcL Hgb (11.5-15.4) g/dL Hct (35.3-44.9) % MCV (83.0-100.0) fL MCH (28.0-33.3) pg MCHC (31.6-35.5) g/dL RDW (11.5-14.5) % Plt Count (140-400) K/mcL MPV (9.4-12.4) fL Immature Gran % (0-4) % Seg Neutrophils % % Lymphocytes % % Monocytes % % Eosinophils % % Basophils % % Neutrophils # (1.6-8.9) K/mcL Lymphocytes # (0.6-4.6) K/mcL Monocytes # (0.0-1.3) K/mcL Eosinophils # (0.0-0.6) K/mcL Basophils # (0.0-0.2) K/mcL Sodium 140 (136-145) mEq/L Potassium 3.4 L (3.5-5.1) mEq/L Chloride 105 (98-107) mEq/L Carbon Dioxide 28 (23-29) mEq/L BUN 12 (6-20) mg/dL Creatinine 0.68 (0.60-1.20) mg/dL Est GFR ( Amer) > 60 (> 60) Est GFR (Non-Af Amer) > 60 (> 60) BUN/Creatinine Ratio 18 (6-26) Glucose 98 (70-105) mg/dL Calculated Osmolality 290 (280-300) Calcium 9.6 (8.6-10.3) mg/dL Serum , Qual Negative (Negative) Urine Color (Yellow) Urine Clarity (Clear) Urine pH (5.0-8.0) pH Units Ur Specific [place] (1.010-1.025) Urine Protein (Neg-Trace) mg/dL Urine Glucose (UA) (Normal) mg/dL Urine Ketones (Negative) mg/dL Urine Blood (Negative) Urine Nitrite (Negative) Urine Bilirubin (Negative) Urine Urobilinogen (Normal) mg/dL Ur Leukocyte Esterase (Negative) Urine Microscopic RBC (0-3) per hpf Urine Microscopic WBC (0-3) per hpf Ur Squamous Epith Cells (None-Few) per lpf Urine Bacteria (None-Few) per hpf Hyaline Casts (None-Few) per lpf Salicylates 9.0 L (15.0-30.0) mg/dL Urine Opiates Screen (Eccgaz=794) ng/mL Acetaminophen < 10 L (10-20) mcg/mL Ur Barbiturates Screen (Laszsh=944) ng/mL Ur Phencyclidine Scrn (Cutoff=25) ng/mL Ur Amphetamines Screen (Ozqfgz=4292) ng/mL U Benzodiazepines Scrn (Hbxlvv=993) ng/mL Urine Cocaine Screen (Cutoff= 300) ng/mL U Marijuana (THC) Screen (Cutoff = 50) ng/mL Ur Drug Screen Interp Ethyl Alcohol < 10 (Less than 10) mg/dL Attestation Statement - Attestation Attestation: I examined this patient and my medical decision-making was reviewed with the Resident Physician. I agree with the documented findings, disposition and treatment plan as described except to the extent set forth below. 32 year old female presents to the ED with complaints of SI and overdosed on fluoxetine and benztropine today in attempts to take her life. She was tachcyardiac and hypotensive upon arrrival and after IV therapy it has improved o 118/80 and 86HR. Rasta is mentating well at bedside and EKG does not show QT prolongation or QRS widening. We will do a medical admit for OD. We have spoken with poison control and they recommend supportive care. We will not be able to do a medical clearance until she has been obs for at least 24 hours
[2018-07-04] MEDS ORDERED: Naloxone 0.4 MG/ML INJ IVP PRN (16:35)
[2018-07-04 16:39] LABS: Magnesium 1.9 mg/dL (1.6-2.6)
[2018-07-04] MEDS ORDERED: Potassium Chloride 40 MEQ, Lidocaine 1% 2 ML in D5% in Water 500 ML IVPB ONE (16:42)
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
[2018-07-04] MEDS: 0.9 % Sodium Chloride 1,000 ML IVC SCH (18:07)
[2018-07-05 05:31] LABS: Basophils % 0.4 %; Eosinophils # 0.1 K/mcL (0.0-0.6); Eosinophils % 0.9 %; Hematocrit 37.6 % (35.3-44.9); Hemoglobin 12.8 g/dL (11.5-15.4); Immature Granulocytes % 0.3 % (0-4); Lymphocytes # 1.5 K/mcL (0.6-4.6); Lymphocytes % 22.3 %; Mean Corpuscular Hemoglobin 31.2 pg (28.0-33.3); Mean Corpuscular Volume 91.7 fL (83.0-100.0); Mean Platelet Volume 11.2 fL (9.4-12.4); Monocytes # 0.5 K/mcL (0.0-1.3); Monocytes % 6.6 %; Neutrophils # 4.8 K/mcL (1.6-8.9); Platelet Count 196 K/mcL (140-400); Red Cell Distribution Width 11.9 % (11.5-14.5); Segmented Neutrophils % 69.5 %
[2018-07-05 05:39] LABS: INR 1.1; Prothrombin Time 12.9 Seconds (9.4-12.1)
[2018-07-05 05:50] LABS: Alanine Aminotransferase 9 Units/L (7-52); Albumin 4.2 g/dL (3.5-5.7); Albumin/Globulin Ratio 1.4 (1.1-2.2); Alkaline Phosphatase 52 Units/L (34-104); Aspartate Amino Transferase 9 Units/L (13-39); BUN/Creatinine Ratio 8 (6-26); Bilirubin,Total 0.4 mg/dL (0.3-1.0); Blood Urea Nitrogen 4 mg/dL (6-20); Calcium 8.7 mg/dL (8.6-10.3); Carbon Dioxide 23 mEq/L (23-29); Chloride 112 mEq/L (98-107); Globulin 2.9 g/dL (2.4-3.5); Glucose 105 mg/dL (70-105); Magnesium 1.8 mg/dL (1.6-2.6); Osmolality,Calculated 291 (280-300); Potassium 3.3 mEq/L (3.5-5.1); Sodium 142 mEq/L (136-145); Total Protein 7.1 g/dL (6.4-8.9); eGFR For Non-African Americans > 60 (> 60)
[2018-07-05] MEDS ORDERED: Acetaminophen 325 MG TABLET PO ONE (06:12)
[2018-07-05] MEDS: Ondansetron 4 MG/2 ML VIAL IVP PRN ×2 (07:01→15:53)
[2018-07-05] MEDS: 0.9 % Sodium Chloride 1,000 ML IVC SCH (08:21)
--- NOTE | 2018-07-05 12:26 | Internal Med Progress Note ---
Hospitalist Progress Note - Encounter Date of Encounter: 07/05/18 Time of Encounter: 09:00 - Subjective Interval History: Pt still has mild nausea, no vomiting overnight. Still tachycardia especially after movement. - Exam Vitals: Temp Pulse Resp BP Pulse Ox 97.6 F 132 18 121/78 95 07/05/18 10:35 07/05/18 10:35 07/05/18 10:35 07/05/18 10:35 07/05/18 10:35 Exam: Pt is AAO x 3, in NAD HEENT: NC/AT, PERRL Neck: Supple, no LAD Lungs: CTA b/l Heart: S1S2, RRR, tachycardia HR 110 Abd: Soft, NT, BS normal Ext: No edema Neuro: AAO x3 - Assessment and Plan (1) Medication overdose Current Visit: Yes Status: Acute Assessment and Plan: Medications overdose because of a suicide attempt. - We cont cardiac monitoring. - Symptomatically treatment with nausea - Start diet from today - Recheck liver and renal function WNL - Still tachycardia (from benzotropine?), cont monitoring. (2) DVT prophylaxis Current Visit: Yes Status: Acute Assessment and Plan: Patient is young and ambulating, we will not place any anticoagulation (3) Suicidal ideation Current Visit: Yes Status: Acute Assessment and Plan: Patient has multiple psych issues and suicidal attempt. - Placing patient on one-to-one sitter - Consult psychiatry (4) Hypokalemia Current Visit: Yes Status: Acute Assessment and Plan: Likely due to vomiting/poor intake. Will give PO supplement and recheck potassium level in a.m. - Time Spent with Patient Total time spent is greater than 50% in coordination of care (as documented) at patient's floor/unit and/or counseling patient: 30 min 25 - 35 minutes Plan of Care Discussed with: patient Internal Medicine: Result - Labs CBC & Chem 7: 07/05/18 04:49 07/05/18 04:49 Labs: Short CBC 07/04/18 07/05/18 Range/Units 14:42 04:49 WBC 9.3 6.9 (4.3-11.1) K/mcL Hgb 13.9 12.8 (11.5-15.4) g/dL Hct 40.8 37.6 (35.3-44.9) % Plt Count 221 196 (140-400) K/mcL Neutrophils # 6.5 4.8 (1.6-8.9) K/mcL BMP 07/04/18 07/05/18 14:42 04:49 Sodium 140 142 Potassium 3.4 L 3.3 L Chloride 105 112 H Carbon Dioxide 28 23 BUN 12 4 L Creatinine 0.68 0.48 L Glucose 98 105 Calcium 9.6 8.7 Liver Function 07/05/18 Range/Units 04:49 Total Bilirubin 0.4 (0.3-1.0) mg/dL AST 9 L (13-39) Units/L ALT 9 (7-52) Units/L Alkaline Phosphatase 52 (34-104) Units/L Albumin 4.2 (3.5-5.7) g/dL Urine 07/04/18 Range/Units 14:42 Urine Color Yellow (Yellow) Urine Clarity Cloudy A (Clear) Urine pH 6.0 (5.0-8.0) pH Units Ur Specific [place] 1.022 (1.010-1.025) Urine Protein Negative (Neg-Trace) mg/dL Urine Glucose (UA) Normal (Normal) mg/dL - ABG Interpretation ABG results: PT/INR, D-dimer PT 12.9 Seconds (9.4-12.1) H 07/05/18 04:49 Consult Discharge Plan - Plan Referrals: NONE,PCP [Primary Care Provider] - (1) Medication overdose Qualifiers: Encounter type: initial encounter Injury intent: intentional self-harm Qualified Code(s): T50.902A - Poisoning by unspecified drugs, medicaments and biological substances, intentional self-harm, initial encounter
[2018-07-05] MEDS ORDERED: *HR* Metoprolol 5 MG/5 ML VIAL IVP PRN (13:21)
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
[2018-07-06 04:31] LABS: Alanine Aminotransferase 9 Units/L (7-52); Albumin 4.3 g/dL (3.5-5.7); Albumin/Globulin Ratio 1.4 (1.1-2.2); Alkaline Phosphatase 51 Units/L (34-104); Aspartate Amino Transferase 9 Units/L (13-39); BUN/Creatinine Ratio 7 (6-26); Bilirubin,Total 0.5 mg/dL (0.3-1.0); Blood Urea Nitrogen 4 mg/dL (6-20); Carbon Dioxide 25 mEq/L (23-29); Chloride 109 mEq/L (98-107); Glucose 88 mg/dL (70-105); Osmolality,Calculated 290 (280-300); Potassium 3.4 mEq/L (3.5-5.1); Sodium 142 mEq/L (136-145); Total Protein 7.3 g/dL (6.4-8.9); eGFR For Non-African Americans > 60 (> 60)
--- NOTE | 2018-07-06 09:55 | Discharge Summary ---
Orders not resulted at time of discharge: Pending orders 07/04/18 14:29 ECG 12 lead ECG [ECG] Stat 07/05/18 06:00 EKG [ECG 12 lead ECG] [ECG] AM 0600 Date of Encounter: 07/06/18 Time of Encounter: 09:00 - Discharge Diagnosis (1) Medication overdose Priority: Primary Status: Acute Qualifiers: Encounter type: initial encounter Injury intent: intentional self-harm Qualified Code(s): T50.902A - Poisoning by unspecified drugs, medicaments and biological substances, intentional self-harm, initial encounter (2) DVT prophylaxis Priority: Secondary Status: Acute (3) Suicidal ideation Priority: Primary Status: Acute (4) Hypokalemia Priority: Primary Status: Acute Hospital course: Ms. Chen is a 32 year old female present to emergency room for suicidal attempt and medication overdose. Patient took fluoxetine 40mg pills for 20 pills and benzotropine 0.5mg pills for 10 pills. Poison control was called by ER physician. Patient was placed on nothing by mouth, IV fluid, continuous cardiac monitoring, and symptomatic treatment. Patient remains AAO 3, nausea has improved. Patient has been always of the medical unit for over 24 hours. Patient remains a symptomatic at this point. Psych consult saw patient and recommend transfer to psych unit for further management. I have seen and examined the patient today. Patient denies dizziness, muscle ache, nausea, or abdominal pain. Vitals are stable. No further tachycardia (pt report her HR is at high side at home). Lab work shows stable renal and liver function. Mild hypokalemia, supplemented with potassium pills. Medically patient is cleared to transfer to psych unit for further management. - Time Spent with Patient Total time spent providing and/or coordinating discharge services: 30 minutes - Discharge Medications Home Medications: Albuterol Sulfate [Albuterol Inhaler] 2 puff IH Q4HR PRN #1 hfa.aer.ad 12/09/17 [Rx] carBAMazepine [Tegretol] 200 mg PO BID #60 tablet 12/16/17 [Rx] FLUoxetine HCl [Prozac] 40 mg PO DAILY 30 Days #30 capsule 05/08/18 [Rx] Paliperidone [Invega] 9 mg PO DAILY 30 Days #30 tab.er.24 05/08/18 [Rx] Benztropine [Cogentin] 0.5 mg PO BID 07/04/18 [History] Trazodone HCl 150 mg PO HS PRN 07/04/18 [History] Allergies/Adverse Reactions: Allergy/AdvReac Type Severity Reaction Status Date / Time tramadol [From Ultram] Allergy See Verified 05/02/18 10:46 Comments propoxyphene AdvReac Vomiting Verified 05/02/18 10:46 [From Darvocet-N] Date of admission: 07/04/18 15:58 Primary care physician: PCP NONE Consults: 07/04/18 16:39 Consult to Psychiatry [CONS] Routine Consulting Provider: Psychiatry Latia Reason consult: Other Other reason and/or additional details: SI, overdose Discharging clinician: Love Disla Anticipated date of discharge: 07/06/18 - Constitutional Vitals: Temp Pulse Resp BP Pulse Ox 97.7 F 88 18 118/79 95 07/06/18 08:05 07/06/18 08:05 07/06/18 08:05 07/06/18 08:05 07/06/18 08:05 General appearance: Present: A&O X 3, no acute distress, answers questions appropriately Exam: Pt is AAO x 3, in NAD HEENT: NC/AT, PERRL Neck: Supple, no LAD Lungs: CTA b/l Heart: S1S2, RRR, tachycardia HR 110 Abd: Soft, NT, BS normal Ext: No edema Neuro: AAO x3 - Patient Status Disposition: Transfer Psychiatric Hosp Condition: Good Functional capacity at discharge: independent ambulation Overall status at discharge: patient is back to baseline - Discharge Instructions Follow Up With: NONE,PCP [Primary Care Provider] - - Diet and Activity Activity: increase activity as tolerated Diet: advance to your usual diet
--- NOTE | 2018-07-06 09:58 | Physician Discharge Referral ---
ExtendedCare Referral Info Transfer To: Psych unit Provider in Charge after Transfer: Other - Diagnosis (1) Medication overdose Status: Acute (2) DVT prophylaxis Status: Acute (3) Suicidal ideation Status: Acute (4) Hypokalemia Status: Acute - Transfer Medications Home Medications: Albuterol Sulfate [Albuterol Inhaler] 2 puff IH Q4HR PRN #1 hfa.aer.ad 12/09/17 [Rx] carBAMazepine [Tegretol] 200 mg PO BID #60 tablet 12/16/17 [Rx] FLUoxetine HCl [Prozac] 40 mg PO DAILY 30 Days #30 capsule 05/08/18 [Rx] Paliperidone [Invega] 9 mg PO DAILY 30 Days #30 tab.er.24 05/08/18 [Rx] Benztropine [Cogentin] 0.5 mg PO BID 07/04/18 [History] Trazodone HCl 150 mg PO HS PRN 07/04/18 [History] Allergies/Adverse Reactions: Allergy/AdvReac Type Severity Reaction Status Date / Time tramadol [From Ultram] Allergy See Verified 05/02/18 10:46 Comments propoxyphene AdvReac Vomiting Verified 05/02/18 10:46 [From Darvocet-N] - Respiratory Orders Smoking Cessation: Smoking cessation has been advised. For more information, call the [place] Tobacco Quit Line at 3-592-IPWZNOW. CERTIFICATION: I certify that the transfer of the above named patient to an Extended Care Facility is necessary for the continuing treatment of the diagnosis listed. The above information is true and accurate reflection of patient's current condition. Confidential - Redisclosure prohibited without a patient's written consent.
[2018-07-06 11:46] VITALS: BP 112/75
[2018-07-06] MEDS ORDERED: Acetaminophen 325 MG TABLET PO PRN (15:22)
--- NOTE | 2018-07-06 15:35 | Consult Note ---
Date of Encounter: 07/06/18 Time of Encounter: 14:30 Assessment & Recommendation (1) Depression Current visit: No Status: Acute Qualifiers: Depression Type: major depressive disorder Major depression recurrence: recurrent Active/Remission status: currently active Major depression episode severity: severe Psychotic features: without psychotic features Qualified Code(s): F33.2 - Major depressive disorder, recurrent severe without psychotic features (2) Anxiety disorder Current visit: No Status: Acute Qualifiers: Anxiety disorder type: unspecified anxiety disorder Qualified Code(s): F41.9 - Anxiety disorder, unspecified (3) Post traumatic stress disorder (PTSD) Current visit: No Status: Chronic (4) Schizophrenia Current visit: No Status: Acute Qualifiers: Schizophrenia type: unspecified Qualified Code(s): F20.9 - Schizophrenia, unspecified History of Present Illness Requesting Physician: Maria Del Carmen Keating MD Reason for consult: schizophrenia History of present illness: Pt is a 32 yo, , female, who presents for exacerbation of schizophrenia. Pt noted she was doing "better...." Pt agreed she needed to come down to inpt psych for medication stabilization on follow on care. Pt noted she felt safe and comfortable on the unit. Pt was in agreement with treatment plan. Pt noted that she is doing better today. Pt noted she slept 8-10 hours last night. Pt noted her appetite is reduced. Pt rated her depression a 5, on a scale of zero to ten with ten being the worst and zero being none. Pt rate her anxiety a 7, on the same scale. Pt noted chronic visual or auditory hallucinations. Pt denied any thoughts to harm herself or anyone else. Pt was educated on the risks benefits and side-effects of these medications including no medication, pt was in agreement. 1.Interval hx 2.Continue current medications 3.Review current labs 4.Pt had an opportunity to ask questions and discuss current treatment plan. 5.Supportive therapy was provided 6.Pt encouraged to consider group or individual therapy 7.Pt was in agreement with treatment plan. 8.Pt was educated on the risks benefits and side effects of current medications. CC: Maria Del Carmen Keating MD Past Med Surg Social Fam HX - Past Medical History Medical history: arthritis, migraine - Past Psychiatric History Psychiatric history: Reports: prior suicide attempt, schizophrenia, previous psychiatric hospitalization Family psychiatric history: Yes Family History of Suicide: None - Past Surgical History Surgical History: - Social History Smoking Status: Current every day smoker Smokeless Tobacco Status: No Alcohol use: none Drug use: marijuana - Family History Mother History Unknown: Yes Medications & Allergies Albuterol Sulfate [Albuterol Inhaler] 2 puff IH Q4HR PRN #1 hfa.aer.ad 12/09/17 [Rx] carBAMazepine [Tegretol] 200 mg PO BID #60 tablet 12/16/17 [Rx] FLUoxetine HCl [Prozac] 40 mg PO DAILY 30 Days #30 capsule 05/08/18 [Rx] Paliperidone [Invega] 9 mg PO DAILY 30 Days #30 tab.er.24 05/08/18 [Rx] Benztropine [Cogentin] 0.5 mg PO BID 07/04/18 [History] Trazodone HCl 150 mg PO HS PRN 07/04/18 [History] Allergy/AdvReac Type Severity Reaction Status Date / Time tramadol [From Ultra] Allergy See Verified 05/02/18 10:46 Comments propoxyphene AdvReac Vomiting Verified 05/02/18 10:46 [From Daryogicet-N] Review of Systems Constitutional: Denies: fever, chills, weakness, weight change Eyes: Denies: eye pain, vision change Ears, Nose, Throat: Denies: ear pain, throat pain, dental pain, hearing loss, co ngestion Cardiovascular: Denies: chest pain, palpitations, dyspnea on exertion Respiratory: Denies: cough, dyspnea, wheezes Gastrointestinal: Denies: abdominal pain, nausea, vomiting, diarrhea, constipation Genitourinary female: Denies: urgency, dysuria, frequency, abnormal menses, dyspareunia Musculoskeletal: Denies: joint swelling, joint pain Integumentary: Denies: rash, lesions, pruritus Neurological: Denies: headache, weakness, numbness, memory loss Psychiatric: Reports: depression, anxiety, abnormal sleep pattern, suicidal ideation, auditory hallucinations, confusion, difficulty concentrating, hopelessness, irritability, mood swings Endocrine: Denies: fatigue, heat or cold intolerance Hematologic/Lymphatic: Denies: easy bruising, lymphadenopathy Allergic/Immunologic: Denies: urticaria, itchy eyes Psychiatry Exam - Constitutional Vitals: Temp Pulse Resp BP Pulse Ox 97.7 F 96 16 112/75 95 07/06/18 11:45 07/06/18 11:45 07/06/18 11:45 07/06/18 11:45 07/06/18 11:45 General appearance: age & developmentally appropriate, well-groomed, well- nourished - Musculoskeletal Gait: normal Station: relaxed Strength & Tone: normal for patient - Psychiatric Patient Orientation: Yes Person, Yes Time, Yes Place Level of alertness: Alert Behavior: calm, cooperative Psychomotor activity: Normal Eye Contact: Maintains Eye Contact Mood Description: Euthymic/stable Affect description: congruent with mood, full range Speech Volume: Normal Speech pattern: normal rate, normal rhythm, normal tone, fluent, spontaneous Language & Vocabulary: consistent with education Thought Process: Linear, Goal Oriented, Thought Blocking Thought Content: No Suicidal ideation, No Homicidal ideation, No Overt delusions, Yes Thought insertion Perceptual Disturbances: Yes Auditory hallucinations, Yes Visual hallucinations Attention Span Ability: Capable of Focused Attention Memory Description: Grossly Intact Patient Reliability: Reliable Historian Fund of knowledge: Yes abstraction ability, Yes aware of current events Intelligence Estimate: Below Average Judgment: Limited Insight: Partial Results - Labs Labs: Laboratory Last Values WBC 6.9 K/mcL (4.3-11.1) 07/05/18 04:49 RBC 4.10 M/mcL (3.82-4.97) 07/05/18 04:49 Hgb 12.8 g/dL (11.5-15.4) 07/05/18 04:49 Hct 37.6 % (35.3-44.9) 07/05/18 04:49 MCV 91.7 fL (83.0-100.0) 07/05/18 04:49 MCH 31.2 pg (28.0-33.3) 07/05/18 04:49 MCHC 34.0 g/dL (31.6-35.5) 07/05/18 04:49 RDW 11.9 % (11.5-14.5) 07/05/18 04:49 Plt Count 196 K/mcL (140-400) 07/05/18 04:49 MPV 11.2 fL (9.4-12.4) 07/05/18 04:49 Immature Gran % 0.3 % (0-4) 07/05/18 04:49 Seg Neutrophils % 69.5 % 07/05/18 04:49 Lymphocytes % 22.3 % 07/05/18 04:49 Monocytes % 6.6 % 07/05/18 04:49 Eosinophils % 0.9 % 07/05/18 04:49 Basophils % 0.4 % 07/05/18 04:49 Neutrophils # 4.8 K/mcL (1.6-8.9) 07/05/18 04:49 Lymphocytes # 1.5 K/mcL (0.6-4.6) 07/05/18 04:49 Monocytes # 0.5 K/mcL (0.0-1.3) 07/05/18 04:49 Eosinophils # 0.1 K/mcL (0.0-0.6) 07/05/18 04:49 Basophils # 0.0 K/mcL (0.0-0.2) 07/05/18 04:49 PT 12.9 Seconds (9.4-12.1) H 07/05/18 04:49 INR 1.1 07/05/18 04:49 Sodium 142 mEq/L (136-145) 07/06/18 03:40 Potassium 3.4 mEq/L (3.5-5.1) L 07/06/18 03:40 Chloride 109 mEq/L (98-107) H 07/06/18 03:40 Carbon Dioxide 25 mEq/L (23-29) 07/06/18 03:40 BUN 4 mg/dL (6-20) L 07/06/18 03:40 Creatinine 0.60 mg/dL (0.60-1.20) 07/06/18 03:40 Est GFR ( Amer) > 60 (> 60) 07/06/18 03:40 Est GFR (Non-Af Amer) > 60 (> 60) 07/06/18 03:40 BUN/Creatinine Ratio 7 (6-26) 07/06/18 03:40 Glucose 88 mg/dL (70-105) 07/06/18 03:40 Calculated Osmolality 290 (280-300) 07/06/18 03:40 Calcium 9.0 mg/dL (8.6-10.3) 07/06/18 03:40 Magnesium 1.8 mg/dL (1.6-2.6) 07/05/18 04:49 Total Bilirubin 0.5 mg/dL (0.3-1.0) 07/06/18 03:40 AST 9 Units/L (13-39) L 07/06/18 03:40 ALT 9 Units/L (7-52) 07/06/18 03:40 Alkaline Phosphatase 51 Units/L (34-104) 07/06/18 03:40 Serum Total Protein 7.3 g/dL (6.4-8.9) 07/06/18 03:40 Albumin 4.3 g/dL (3.5-5.7) 07/06/18 03:40 Globulin 3.0 g/dL (2.4-3.5) 07/06/18 03:40 Albumin/Globulin Ratio 1.4 (1.1-2.2) 07/06/18 03:40 Serum , Qual Negative (Negative) 07/04/18 14:42 Urine Color Yellow (Yellow) 07/04/18 14:42 Urine Clarity Cloudy (Clear) A 07/04/18 14:42 Urine pH 6.0 pH Units (5.0-8.0) 07/04/18 14:42 Ur Specific [place] 1.022 (1.010-1.025) 07/04/18 14:42 Urine Protein Negative mg/dL (Neg-Trace) 07/04/18 14:42 Urine Glucose (UA) Normal mg/dL (Normal) 07/04/18 14:42 Urine Ketones Negative mg/dL (Negative) 07/04/18 14:42 Urine Blood Trace (Negative) H 07/04/18 14:42 Urine Nitrite Negative (Negative) 07/04/18 14:42 Urine Bilirubin Small (Negative) H 07/04/18 14:42 Urine Urobilinogen Normal mg/dL (Normal) 07/04/18 14:42 Ur Leukocyte Esterase Negative (Negative) 07/04/18 14:42 Urine Microscopic RBC 3-5 per hpf (0-3) H 07/04/18 14:42 Urine Microscopic WBC 5-15 per hpf (0-3) H 07/04/18 14:42 Ur Squamous Epith Cells Many per lpf (None-Few) H 07/04/18 14:42 Urine Bacteria Few per hpf (None-Few) 07/04/18 14:42 Hyaline Casts None Seen per lpf (None-Few) 07/04/18 14:42 Salicylates < 2.5 mg/dL (15.0-30.0) L 07/05/18 04:49 Urine Opiates Screen Negative ng/mL (Chzjov=657) 07/04/18 14:42 Acetaminophen < 10 mcg/mL (10-20) L 07/04/18 14:42 Ur Barbiturates Screen Negative ng/mL (Siiptn=676) 07/04/18 14:42 Ur Phencyclidine Scrn Negative ng/mL (Cutoff=25) 07/04/18 14:42 Ur Amphetamines Screen Negative ng/mL (Qzorom=1281) 07/04/18 14:42 U Benzodiazepines Scrn Negative ng/mL (Uiealn=958) 07/04/18 14:42 Urine Cocaine Screen Negative ng/mL (Cutoff= 300) 07/04/18 14:42 U Marijuana (THC) Screen Positive ng/mL (Cutoff = 50) H 07/04/18 14:42 Ur Drug Screen Interp See Below 07/04/18 14:42 Ethyl Alcohol < 10 mg/dL (Less than 10) 07/04/18 14:42 Consult Discharge Plan - Plan Additional Instructions: transfer pt to [place] [id number] A Referrals: NONE,PCP [Primary Care Provider] -
--- NOTE | 2018-07-08 20:35 | Electrocardiograph Report ---
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
== END 2018-07-06 16:10 ==
LOC: 3BNU 14:03 → EMEROOARM 14:03 → 3BNU 17:17
PROVIDERS: ADMIT Internal Medicine; ATTEND Internal Medicine

== ENCOUNTER 2018-07-06 16:17 | Inpatient (IN) ==
[2018-07-06] MEDS ORDERED: Haloperidol Lactate 5 MG/ML VIAL IM PRN (16:39)
[2018-07-06] MEDS ORDERED: MOM Conc 10 ML UD.LIQ PO PRN (16:39)
[2018-07-06] MEDS ORDERED: *HR* LORazepam 1 MG TABLET PO PRN (16:39)
[2018-07-06] MEDS ORDERED: *HR* LORazepam 2 MG/ML VIAL IM PRN (16:39)
[2018-07-06] MEDS ORDERED: Mag Hydrox/Al Hydrox/Simeth 30 ML UDC PO PRN (16:39)
[2018-07-06] MEDS ORDERED: Ibuprofen 400 MG TABLET PO PRN (17:49)
[2018-07-06] MEDS: Nicotine 21 MG PATCH.TD24 TD SCH (17:59)
[2018-07-06] MEDS: traZODone 50 MG TABLET PO PRN (22:07)
[2018-07-07] MEDS: Nicotine 21 MG PATCH.TD24 TD SCH (12:00)
--- NOTE | 2018-07-07 12:50 | Psychiatry History & Physical ---
Date of Encounter: 07/07/18 Time of Encounter: 12:30 History of Present Illness Patient Stated Chief Complaint: I heard voices that told me to kill myself Medicare Admission Attestation: For traditional Medicare patients the provided hospital inpatient services are reasonable and necessary and in the case of services not specified as inpatient-only under 42 CFR 419.22 (n), that they are appropriately provided as inpatient services in accordance 42 CFR 412.3. For Critical Access Hospital the patient may reasonably be expected to be discharged or transferred to a hospital within 96 hours after admission to the Critical Access Hospital. Admitted From: Intrahospital Transfer Plans for Post Hospital Care: Home History of Present Illness: Ms. Chen is a 32 year old female Chief complaint I heard voices and I started seeing stuff. On Saturday I took all my medicines in an overdose. History of present illness the patient has been hospitalized in September and April. At the time of discharge diagnosis of bipolar depression with psychosis was given. Previously a diagnosis of schizophrenia has been given the patient has reported chronic auditory hallucinations. She was discharged in April. She reported that the medicines were helpful she went to the [facility]. She was living with her fiellie's mother in an apartment she noted that her migraine headaches and not gotten worse. The patient continues to smoke marijuana smoking it in November. In the past the patient has had cocaine abuse. In 2016 she was treated for opiate dependence with Suboxone. There is been no recent Suboxone. She is not receiving [place] medical marijuana. She reports that the medicines were working up until May on 06/09/2018 her fiellie got out of detention he had been in detention for 5 months. The patient became jealous she thought that her boyfriend was unfaithful to her she demanded that she show his file. He got in an argument and said that he would take her phone she took units. She got mad and she took all her medicines in an overdose Tegretol, Prozac, paliperidone, benztropine. Patient reports increasing suicidal ideation. She reports that she hears voices she says that the voices tell her that she is worthless and call her the B word. She says these are the voices of men that she does not know she believes him to be true. The patient now says her suicidal ideation was stupid and that her so the suicide attempt was something that she regrets. The patient reports first ranks symptoms including thought broadcasting and delusion of passive bitty. She does not have thought withdrawal thought insertion or ideas of reference. Patient lives with her fiance and her mom. She is thinking work job. She has no wedding date planned and she has not gotten an engagement ring Past Med Surg Social Fam HX - Past Medical History Medical history: arthritis, migraine - Past Psychiatric History Psychiatric history: Reports: bipolar, PTSD, prior suicide attempt, schizophrenia, previous psychiatric hospitalization - Past Surgical History Surgical History: - Social History Smoking Status: Current every day smoker Smokeless Tobacco Status: No Alcohol use: none Drug use: marijuana Occupational status: unemployed Current living situation: Home, Other Activity Level: Independent ambulation Recent Out of Country Travel Within the Last 8 Weeks: No Exposure or Possible Exposure to Illness During Travel: No Medications & Allergies Albuterol Sulfate [Albuterol Inhaler] 2 puff IH Q4HR PRN #1 hfa.aer.ad 12/09/17 [Rx] carBAMazepine [Tegretol] 200 mg PO BID #60 tablet 12/16/17 [Rx] FLUoxetine HCl [Prozac] 40 mg PO DAILY 30 Days #30 capsule 05/08/18 [Rx] Paliperidone [Invega] 9 mg PO DAILY 30 Days #30 tab.er.24 05/08/18 [Rx] Benztropine [Cogentin] 0.5 mg PO BID 07/04/18 [History] Trazodone HCl 150 mg PO HS PRN 07/04/18 [History] Allergy/AdvReac Type Severity Reaction Status Date / Time tramadol [From Ultram] Allergy See Verified 05/02/18 10:46 Comments propoxyphene AdvReac Vomiting Verified 05/02/18 10:46 [From Darvocet-N] Review of Systems Psychiatric: Reports: depression, suicidal ideation, auditory hallucinations, visual hallucinations, hopelessness Exam - HEENT Head exam IM: Present: atraumatic Eye exam IM: Present: EOMI, normal appearance, PERRL ENT exam IM: Present: normal exam - Neurological Neurological exam: Present: CN II-XII intact - Respiratory Respiratory exam IM: Present: CTAB - GI/Abdominal GI/Abdominal exam IM: Present: normal bowel sounds, soft. Absent: tenderness - Extremities Extremities exam IM: Present: full ROM - Skin Skin exam IM: Present: dry, warm - Constitutional Vitals: Temp Pulse Resp BP Pulse Ox 99.1 F 110 18 124/77 97 07/06/18 21:00 07/06/18 21:00 07/06/18 21:00 07/06/18 21:00 07/06/18 21:00 General appearance: age & developmentally appropriate, well-groomed, well- nourished - Musculoskeletal Gait: normal Station: relaxed Strength & Tone: normal for patient - Psychiatric Patient Orientation: Yes Person, Yes Time, Yes Place Level of alertness: Alert Behavior: calm, cooperative Psychomotor activity: Normal Eye Contact: Maintains Eye Contact Mood Description: Euthymic/stable Affect description: congruent with mood, full range Speech Volume: Normal Speech pattern: normal rate, normal rhythm, normal tone, fluent, spontaneous Language & Vocabulary: consistent with education Thought Process: Linear, Goal Oriented Thought Content: Yes Suicidal ideation, No Homicidal ideation Perceptual Disturbances: Yes Auditory hallucinations, Yes Visual hallucinations Attention Span Ability: Capable of Focused Attention Memory Description: Grossly Intact Patient Reliability: Reliable Historian Fund of knowledge: Yes abstraction ability, Yes below average Intelligence Estimate: Average Judgment: Limited Insight: Minimal Assessment and Plan (1) Bipolar disorder, current episode depressed, severe, with psychotic features Current visit: Yes Status: Acute Plan: Admit inpatient for safety and stabilization, Close observation, Suicide Precautions per unit protocol, Encourage participation in unit milieu Risks, benefits, side effects, alternatives discussed w/pt: Yes Patient agreeable to treatment: Yes Plans for Post Hospital Care: Home Estimated Length of Stay (Days): 5 (2) Post traumatic stress disorder (PTSD) Current visit: No Status: Chronic Plan: Admit inpatient for safety and stabilization, Suicide Precautions per unit protocol, Encourage participation in unit milieu, Monitor sleep Risks, benefits, side effects, alternatives discussed w/pt: Yes Patient agreeable to treatment: Yes Plans for Post Hospital Care: Home (3) Migraine Current visit: No Status: Chronic Plan: Monitor appetite Risks, benefits, side effects, alternatives discussed w/pt: Yes Patient agreeable to treatment: Yes Plans for Post Hospital Care: Home Qualifiers: Migraine type: without aura Status migrainosus presence: without status migrainosus Intractability: not intractable Qualified Code(s): G43.009 - Migraine without aura, not intractable, without status migrainosus (4) Suicidal ideation Current visit: No Status: Acute Plan: Close observation, Suicide Precautions per unit protocol, Secure weapons Risks, benefits, side effects, alternatives discussed w/pt: Yes Patient agreeable to treatment: Yes Plans for Post Hospital Care: Home (5) Drug overdose Current visit: No Status: Acute Plan: Admit inpatient for safety and stabilization, Close observation Plans for Post Hospital Care: Home Qualifiers: Encounter type: subsequent encounter Injury intent: intentional self-harm Qualified Code(s): T50.902D - Poisoning by unspecified drugs, medicaments and biological substances, intentional self-harm, subsequent encounter
[2018-07-07] MEDS: carBAMazepine 200 MG TABLET PO SCH (20:37)
[2018-07-07] MEDS: traZODone 50 MG TABLET PO PRN (20:37)
[2018-07-08] MEDS: carBAMazepine 200 MG TABLET PO SCH ×2 (09:12→20:50)
[2018-07-08] MEDS: Nicotine 21 MG PATCH.TD24 TD SCH (09:12)
--- NOTE | 2018-07-08 16:05 | Psychiatry Progress Note ---
Date of Encounter: 07/08/18 Time of Encounter: 16:00 Subjective Interval history: ID: patient 32 yo w female who has Bipolar disorder CC: patient gets in arguments over jealousy HPI: patient has some jealous. She is doing better off of prozac. She has taken invega. She is using 1 bowl per day. she has some anxiety and insomnia when she misses cannibis. She has been seen by [facility]. Her dad came to visit. She notes Fiance has been at work. she is willing to conisder invega Sustenna. She is willing to conseder medical marijauna. She notes some lacation, starting in the last month. She is willing to consder amantidine. Abilify made her worse. Review of Systems Psychiatric: Reports: depression, suicidal ideation, auditory hallucinations, visual hallucinations, hopelessness Results - Vital Signs Vital Signs: Temp Pulse Resp BP Pulse Ox 98.5 F 75 18 97/67 97 07/08/18 09:00 07/08/18 09:00 07/08/18 09:00 07/08/18 09:00 07/08/18 09:00 Assessment and Plan (1) Bipolar disorder, current episode depressed, severe, with psychotic features Current visit: Yes Status: Acute Plan: Continue hospitalization, Close observation, Group Therapy, Monitor sleep Risks, benefits, side effects, alternatives discussed w/pt: Yes Patient agreeable to treatment: Yes (2) Post traumatic stress disorder (PTSD) Current visit: No Status: Chronic Plan: Group Therapy, Monitor sleep, Secure weapons Risks, benefits, side effects, alternatives discussed w/pt: Yes Patient agreeable to treatment: Yes (3) Migraine Current visit: No Status: Chronic Risks, benefits, side effects, alternatives discussed w/pt: Yes Patient agreeable to treatment: Yes Qualifiers: Migraine type: without aura Status migrainosus presence: without status migrainosus Intractability: not intractable Qualified Code(s): G43.009 - Migraine without aura, not intractable, without status migrainosus (4) Suicidal ideation Current visit: No Status: Acute Plan: Suicide Precautions per unit protocol, Secure weapons Risks, benefits, side effects, alternatives discussed w/pt: Yes Patient agreeable to treatment: Yes (5) Drug overdose Current visit: No Status: Acute Qualifiers: Encounter type: subsequent encounter Injury intent: intentional self-harm Qualified Code(s): T50.902D - Poisoning by unspecified drugs, medicaments and biological substances, intentional self-harm, subsequent encounter Consult Discharge Plan - Plan Referrals: [facility] [Outside] - 07/15/18 10:00 am (The above appointment is with Pippa Khan for outpatient mental health counseling services. You will also see Nasra Moreira for outpatient psychiatric assessment and medication management services on 07/15/2018 at 9:10 AM.) Psychiatry Exam - Constitutional Vitals: Temp Pulse Resp BP Pulse Ox 98.5 F 75 18 97/67 97 07/08/18 09:00 07/08/18 09:00 07/08/18 09:00 07/08/18 09:00 07/08/18 09:00 General appearance: age & developmentally appropriate, well-groomed, well- nourished - Musculoskeletal Gait: normal Station: relaxed Strength & Tone: normal for patient - Psychiatric Patient Orientation: Yes Person, Yes Time, Yes Place Level of alertness: Alert Behavior: calm, cooperative Psychomotor activity: Normal Eye Contact: Maintains Eye Contact Affect description: congruent with mood, full range, anxious Speech Volume: Soft/Quiet Speech pattern: normal rate, normal rhythm, normal tone, fluent, spontaneous Language & Vocabulary: consistent with education Thought Process: Linear, Goal Oriented Thought Content: Yes Suicidal ideation, No Homicidal ideation, No Overt delus ions Perceptual Disturbances: Yes Auditory hallucinations, No Visual hallucinations Attention Span Ability: Capable of Focused Attention Memory Description: Grossly Intact Patient Reliability: Reliable Historian Fund of knowledge: Yes abstraction ability, Yes aware of current events Intelligence Estimate: Average Judgment: Fair Insight: Partial
[2018-07-08] MEDS: traZODone 50 MG TABLET PO PRN (20:50)
[2018-07-08] MEDS: hydrOXYzine pamoate 25 MG CAPSULE PO PRN (20:51)
[2018-07-08] MEDS: Acetaminophen 325 MG TABLET PO PRN (20:51)
[2018-07-09] MEDS: Nicotine 21 MG PATCH.TD24 TD SCH (09:24)
[2018-07-09] MEDS: carBAMazepine 200 MG TABLET PO SCH ×2 (09:24→20:44)
--- NOTE | 2018-07-09 13:32 | Psychiatry Progress Note ---
Date of Encounter: 07/09/18 Time of Encounter: 13:30 Subjective Interval history: ID patient is a 32-year-old white female. Chief complaint I get jealous the voices tell me that he is cheating. History of present illness. The patient has been involved with her fiance for the past year. In previous relationship she has not been a jealous type or suspected infidelity however in the last 4-5 relationships she can recall she notes that her partners were unfaithful. During the day the patient sits in bed thinks about seeing her children how she can get to see her children. Her father is helping her with this. The patient says she lays in bed when she is depressed but she is unable to identify symptoms major depression The patient has tolerated the medicine amantadine. The patient notes no particular side effects she says that she is hearing voices but we have not seen her attending to these. She says her boyfriend might visit her tonight or this evening. Review of Systems Psychiatric: Reports: depression, suicidal ideation, auditory hallucinations, hopelessness Results - Vital Signs Vital Signs: Temp Pulse Resp BP Pulse Ox 98.6 F 90 18 97/65 98 07/09/18 09:00 07/09/18 09:00 07/09/18 09:00 07/09/18 09:00 07/09/18 09:00 Assessment and Plan (1) Bipolar disorder, current episode depressed, severe, with psychotic features Current visit: Yes Status: Acute Plan: Continue hospitalization, Close observation, Suicide Precautions per unit protocol, Encourage participation in unit milieu, Group Therapy, Monitor sleep, Monitor appetite Risks, benefits, side effects, alternatives discussed w/pt: Yes Patient agreeable to treatment: Yes (2) Post traumatic stress disorder (PTSD) Current visit: No Status: Chronic Plan: Close observation, Encourage participation in unit milieu Risks, benefits, side effects, alternatives discussed w/pt: Yes Patient agreeable to treatment: Yes (3) Migraine Current visit: No Status: Chronic Plan: Monitor sleep, Monitor appetite Risks, benefits, side effects, alternatives discussed w/pt: Yes Patient agreeable to treatment: Yes Qualifiers: Migraine type: without aura Status migrainosus presence: without status migrainosus Intractability: not intractable Qualified Code(s): G43.009 - Migraine without aura, not intractable, without status migrainosus (4) Suicidal ideation Current visit: No Status: Acute Plan: Suicide Precautions per unit protocol, Secure weapons Risks, benefits, side effects, alternatives discussed w/pt: Yes Patient agreeable to treatment: Yes (5) Drug overdose Current visit: No Status: Acute Plan: Close observation, Family/Supportive other meeting, Other Risks, benefits, side effects, alternatives discussed w/pt: Yes Patient agreeable to treatment: Yes Qualifiers: Encounter type: subsequent encounter Injury intent: intentional self-harm Qualified Code(s): T50.902D - Poisoning by unspecified drugs, medicaments and biological substances, intentional self-harm, subsequent encounter Consult Discharge Plan - Plan Referrals: [facility] [Outside] - 07/15/18 10:00 am (The above appointment is with Pippa Khan for outpatient mental health counseling services. You will also see Nasra Moreira for outpatient psychiatric assessment and medication management services on 07/15/2018 at 9:10 AM.) Psychiatry Exam - Constitutional Vitals: Temp Pulse Resp BP Pulse Ox 98.6 F 90 18 97/65 98 07/09/18 09:00 07/09/18 09:00 07/09/18 09:00 07/09/18 09:00 07/09/18 09:00 General appearance: age & developmentally appropriate, well-groomed, well- nourished - Musculoskeletal Gait: normal Station: relaxed Strength & Tone: normal for patient - Psychiatric Patient Orientation: Yes Person, Yes Time, Yes Place Level of alertness: Alert Behavior: calm, cooperative Psychomotor activity: Slowed Eye Contact: Minimal Contact Mood Description: Depressed Affect description: congruent with mood, full range, blunted Speech Volume: Normal Speech pattern: normal rate, normal rhythm, normal tone, fluent, spontaneous, impoverished, monotone Language & Vocabulary: consistent with education Thought Process: Linear, Goal Oriented Thought Content: Yes Suicidal ideation, No Homicidal ideation, No Overt delusions Perceptual Disturbances: Yes Auditory hallucinations, No Visual hallucinations Attention Span Ability: Capable of Sustained Attention Memory Description: Grossly Intact Patient Reliability: Questionable Historian Fund of knowledge: Yes abstraction ability, Yes below average Intelligence Estimate: Below Average Judgment: Limited Insight: Minimal
[2018-07-09] MEDS: traZODone 50 MG TABLET PO PRN (20:44)
[2018-07-09] MEDS: Acetaminophen 325 MG TABLET PO PRN (20:44)
[2018-07-09] MEDS: hydrOXYzine pamoate 25 MG CAPSULE PO PRN (20:45)
[2018-07-10 08:28] LABS: BUN/Creatinine Ratio 24 (6-26); Blood Urea Nitrogen 18 mg/dL (6-20); Calcium 8.7 mg/dL (8.6-10.3); Carbon Dioxide 32 mEq/L (23-29); Chloride 104 mEq/L (98-107); Glucose 86 mg/dL (70-105); Osmolality,Calculated 291 (280-300); Potassium 3.8 mEq/L (3.5-5.1); Sodium 140 mEq/L (136-145); eGFR For Non-African Americans > 60 (> 60)
[2018-07-10] MEDS: carBAMazepine 200 MG TABLET PO SCH ×2 (09:59→21:25)
[2018-07-10] MEDS: Nicotine 21 MG PATCH.TD24 TD SCH (10:00)
--- NOTE | 2018-07-10 17:33 | Psychiatry Progress Note ---
Date of Encounter: 07/10/18 Time of Encounter: 15:30 Subjective Interval history: ID the patient is a 32-year-old white female. Chief complaint I have to go back and L5 fiance is drop in his fall down not sure why. History of present illness the patient is tolerated the medicines she is still waiting on her injection today but has an vague assist Prudence 234 mg ordered the patient's Tegretol was 9.0 suggesting that previous higher doses may have been associated with more side effects. The patient is no longer on Prozac she still hearing voices she still depressed she still thinks about suicide but is more future oriented. She visited with her dad and he has tried to help and she was feels better when she visits with. Review of Systems Psychiatric: Reports: depression, suicidal ideation, auditory hallucinations, hopelessness Results - Vital Signs Vital Signs: Temp Pulse Resp BP Pulse Ox 99.3 F 94 16 100/67 95 07/10/18 09:00 07/10/18 09:00 07/10/18 09:00 07/10/18 09:00 07/10/18 09:00 - Drug Levels and Toxicology Drug Levels and Toxicology: Drug Levels and Toxicity 07/10/18 07:43 Carbamazepine 9 - Labs Labs: Laboratory Results - last 24 hr 07/10/18 07/10/18 07:43 07:43 Sodium 140 Potassium 3.8 Chloride 104 Carbon Dioxide 32 H BUN 18 Creatinine 0.76 Est GFR ( Amer) > 60 Est GFR (Non-Af Amer) > 60 BUN/Creatinine Ratio 24 Glucose 86 Calculated Osmolality 291 Calcium 8.7 Carbamazepine 9 Assessment and Plan (1) Bipolar disorder, current episode depressed, severe, with psychotic features Current visit: Yes Status: Acute Plan: Continue hospitalization, Close observation, Suicide Precautions per unit protocol, Encourage participation in unit milieu Risks, benefits, side effects, alternatives discussed w/pt: Yes Patient agreeable to treatment: Yes (2) Post traumatic stress disorder (PTSD) Current visit: No Status: Chronic Plan: Continue hospitalization, Close observation, Suicide Precautions per unit protocol, Encourage participation in unit milieu Risks, benefits, side effects, alternatives discussed w/pt: Yes Patient agreeable to treatment: Yes (3) Migraine Current visit: No Status: Chronic Risks, benefits, side effects, alternatives discussed w/pt: Yes Patient agreeable to treatment: Yes Qualifiers: Migraine type: without aura Status migrainosus presence: without status migrainosus Intractability: not intractable Qualified Code(s): G43.009 - Migraine without aura, not intractable, without status migrainosus (4) Suicidal ideation Current visit: No Status: Acute Plan: Suicide Precautions per unit protocol, Secure weapons Risks, benefits, side effects, alternatives discussed w/pt: Yes Patient agreeable to treatment: Yes (5) Drug overdose Current visit: No Status: Acute Risks, benefits, side effects, alternatives discussed w/pt: Yes Patient agr eeable to treatment: Yes Qualifiers: Encounter type: sequela Injury intent: intentional self-harm Qualified Code(s): T50.902S - Poisoning by unspecified drugs, medicaments and biological substances, intentional self-harm, sequela Consult Discharge Plan - Plan Additional Instructions: Patient was given Invega Sustenna 234 mg on 07/10/2018. Next dose of Invega 234 mg will be due on 08/07/2018. Referrals: [facility] [Outside] - 07/15/18 10:00 am (The above appointment is with Pippa Khan for outpatient mental health counseling services. You will also see Nasra Moreira for outpatient psychiatric assessment and medication management services on 07/15/2018 at 9:10 AM.) Psychiatry Exam - Constitutional Vitals: Temp Pulse Resp BP Pulse Ox 99.3 F 94 16 100/67 95 07/10/18 09:00 07/10/18 09:00 07/10/18 09:00 07/10/18 09:00 07/10/18 09:00 General appearance: age & developmentally appropriate, well-groomed, well- nourished - Musculoskeletal Gait: normal Station: relaxed Strength & Tone: normal for patient - Psychiatric Patient Orientation: Yes Person, Yes Time, Yes Place Level of alertness: Alert Behavior: calm, cooperative Psychomotor activity: Slowed Eye Contact: Maintains Eye Contact Mood Description: Depressed Affect description: congruent with mood, full range Speech Volume: Normal Speech pattern: normal rate, normal rhythm, normal tone, fluent, spontaneous Language & Vocabulary: consistent with education Thought Process: Linear, Goal Oriented Thought Content: Yes Suicidal ideation, No Homicidal ideation, No Overt delusions Perceptual Disturbances: No Auditory hallucinations, No Visual hallucinations Attention Span Ability: Capable of Focused Attention Memory Description: Grossly Intact Patient Reliability: Reliable Historian Fund of knowledge: Yes abstraction ability, Yes aware of current events Intelligence Estimate: Average Judgment: Limited Insight: Minimal
[2018-07-10] MEDS ORDERED: Paliperidone Palmitate [Invega Sustenna] 234 MG IM SCH (20:00)
[2018-07-10] MEDS: hydrOXYzine pamoate 25 MG CAPSULE PO PRN (21:25)
[2018-07-10] MEDS: traZODone 50 MG TABLET PO PRN (21:26)
[2018-07-11 09:10] VITALS: BP 111/77
[2018-07-11] MEDS: carBAMazepine 200 MG TABLET PO SCH (09:15)
[2018-07-11] MEDS: Nicotine 21 MG PATCH.TD24 TD SCH (09:15)
--- NOTE | 2018-07-11 09:57 | Discharge Summary ---
Date of Encounter: 07/11/18 Time of Encounter: 10:00 Diagnosis - Discharge Diagnosis (1) Bipolar disorder, current episode depressed, severe, with psychotic features Priority: Primary Status: Acute (2) Post traumatic stress disorder (PTSD) Priority: Secondary Status: Chronic (3) Migraine Status: Chronic Qualifiers: Migraine type: without aura Status migrainosus presence: without status migrainosus Intractability: not intractable Qualified Code(s): G43.009 - Migraine without aura, not intractable, without status migrainosus (4) Suicidal ideation Status: Acute (5) Drug overdose Status: Resolved Qualifiers: Encounter type: sequela Injury intent: intentional self-harm Qualified Code(s): T50.902S - Poisoning by unspecified drugs, medicaments and biological substances, intentional self-harm, sequela Medications - Discharge Medications Prescriptions: Paliperidone Palmitate [Invega Sustenna] 234 mg IM QMONTH 28 Days #1 syringe Amantadine [Symmetrel] 100 mg PO QAM 30 Days #30 capsule Benztropine [Cogentin] 0.5 mg PO BID 30 Days #60 tablet carBAMazepine [Tegretol] 200 mg PO BID 30 Days #60 tablet Paliperidone [Invega] 9 mg PO DAILY 30 Days #30 tab.er.[id number] Amantadine [Symmetrel] 100 mg PO QAM 30 Days #30 capsule 07/11/18 [Rx] Benztropine [Cogentin] 0.5 mg PO BID 30 Days #60 tablet 07/11/18 [Rx] Paliperidone Palmitate [Invega Sustenna] 234 mg IM QMONTH 28 Days #1 syringe 07/11/18 [Rx] Paliperidone [Invega] 9 mg PO DAILY 30 Days #30 tab.er.[email or web address] 07/11/18 [Rx] carBAMazepine [Tegretol] 200 mg PO BID 30 Days #60 tablet 07/11/18 [Rx] Allergy/AdvReac Type Severity Reaction Status Date / Time tramadol [From Ultram] Allergy See Verified 05/02/18 10:46 Comments propoxyphene AdvReac Vomiting Verified 05/02/18 10:46 [From Darvocet-N] Results Procedures and tests throughout hospitalization: Completed Lab Orders Category Date Time Status Carbamazepine (Tegretol) Routine Lab 07/10/18 07:43 Completed Chem 7 [Basic Metabolic Panel] Routine Lab 07/10/18 07:43 Completed Provider Date of admission: 07/06/18 16:17 Primary care physician: PCP NONE Discharging clinician: Hussein Perez Psychiatry Exam - Constitutional Vitals: Temp Pulse Resp BP Pulse Ox 98.2 F 92 16 111/77 98 07/11/18 09:00 07/11/18 09:00 07/11/18 09:00 07/11/18 09:00 07/10/18 20:03 General appearance: age & developmentally appropriate, well-groomed, well- nourished - Musculoskeletal Gait: normal Station: relaxed Strength & Tone: normal for patient - Psychiatric Patient Orientation: Yes Person, Yes Time, Yes Place Level of alertness: Alert Behavior: calm, cooperative Psychomotor activity: Slowed Eye Contact: Maintains Eye Contact Mood Description: Anxious Affect description: congruent with mood, full range, blunted Speech Volume: Normal Speech pattern: normal rate, normal rhythm, normal tone, fluent, spontaneous Language & Vocabulary: consistent with education Thought Process: Linear, Goal Oriented Thought Content: No Suicidal ideation, No Homicidal ideation, No Overt delusions Perceptual Disturbances: No Visual hallucinations Attention Span Ability: Capable of Focused Attention Memory Description: Grossly Intact Patient Reliability: Questionable Historian Fund of knowledge: Yes abstraction ability, Yes aware of current events Intelligence Estimate: Average Judgment: Fair Insight: Partial Hospital Course Hospital course: Ms. Chen is a 32 year old female CC: I am feeling better and ready to live with my boyfriend. HPI: The patient has been hospitalized after and overdose. She got in an arguement with her fiance. She was jealous. She believed that he might have been unfaithful. The took all of her meds in an overdose. She was medically cleared. She was admited on suicide precautions. She reported hearing voices. She was withdrawn on the unit. She also has a history of PTSD. Prozac was discontinued. Tegretol was adjusted to 200 mg BID, the blood level was 9.0. The Paliperidone was oral at 9 mg, She reported some galactorhea and a h/o mentrual irregularity. She was started on amantadine. She tolerated it without worsening psychosis. She was able to receive Invega Sustenna 234 mg IM on 07/10/2018. She tolerated it well and agreed to outpatient Invega sustenna. She reported no significant voices at the time of discharge. She reported improved mood. She rejected to have her meds as a dose pack. her father visited and was supportive. She decided to live with her boyfriend and her mother. She still has some jealousy feelings although she reports that he is faithful. No side effects noted, other than lacatation (small amount), and she denied SI at the time of discharge. Time spent discussing smoking cessation with patient: 3 to 10 minutes Does patient wish to continue nicotine replacement upon disc: No - Time Spent with Patient Total time spent providing and/or coordinating discharge services: Less than 30 minutes Assessment and Plan - Patient/Caregiver Discharge Instructions Activity: resume usual activities as tolerated Diet: regular diet Additional Instructions: Patient was given Invega Sustenna 234 mg on 07/10/2018. Next dose of Invega 234 mg will be due on 08/07/2018. - Follow up Plan Follow up with: Yonatan Bos[facility] [Outside] - 07/15/18 10:00 am (The above appointment is with Pippa Khan for outpatient mental health counseling services. You will also see Nasra Moreira for outpatient psychiatric assessment and medication management services on 07/15/2018 at 9:10 AM.) Functional capacity at discharge: independent ambulation Overall status at discharge: Stable Disposition: Home, Self-Care Quality - Multiple Antipsychotics Patient discharged on 2 or more antipsychotic medications: No Procedures - Procedures Procedures: Medication Management, Crisis Stabilization, Supportive Therapy, Group Therapy, Psychoeducational Therapy
== END 2018-07-11 11:45 | disposition home or self-care (01) | DRG 753 ==
LOC: 1ANU 16:17
PROVIDERS: ADMIT General Practice; ATTEND General Practice

== ENCOUNTER 2019-03-30 12:05 | Inpatient (IN) ==
--- NOTE | 2019-03-30 13:19 | Emergency Department Note ---
Disposition Clinical Impression: Marijuana abuse, Abnormal urinalysis, Schizophrenia Disposition: Admitted As Inpatient Referrals: NONE,PCP [Primary Care Provider] - Forms: ED Satisfaction Letter Time of Disposition: 17:41 General Adult HPI - General Chief complaint: ED Psychiatric Symptoms Stated complaint: "Needs to go to [facility]" Time Seen by Provider: 03/30/19 13:17 Source: patient, family Limitations: no limitations - History of Present Illness HPI Narrative: 33-year-old female reports emergency department with concerns for hearing voices. The voices have been telling her to harm herself. She has a known history of schizophrenia. The patient has not harmed herself in any way. There is no history of attempted overdose. She denies acute physical complaints. There is no history of head pain chest pain abdominal pain vomiting diarrhea convulsions urinary symptomatology or any physical complaint. The patient is here with her father. She has a history of prior psychiatric hospitalizations. She describes increasing anxiety and depression. Pain Scale: 0 - Related Data Allergies Allergy/AdvReac Type Severity Reaction Status Date / Time tramadol [From Ultram] Allergy See Verified 03/30/19 12:07 Comments propoxyphene AdvReac Vomiting Verified 03/30/19 12:07 [From Darvocet-N] All systems ED: reviewed and negative except as stated. Past Medical History - Past Medical History Medical history: Reports: arthritis, migraine Surgical history: Reports: Psychiatric history: Reports: bipolar, PTSD, prior suicide attempt, schizophrenia, previous psychiatric hospitalization [employer] history: Reports: bilateral tubal ligation - Social History Smoking Status: Current every day smoker Smokeless Tobacco Status: No Alcohol use: Reports: none Drug use: Reports: marijuana Physical Exam - General Limitations: no limitations General appearance: alert, in no apparent distress - Head Head exam: atraumatic, normocephalic, normal inspection - Eye Eye exam: Present: normal appearance, PERRL, EOMI - ENT ENT exam: normal exam, normal oropharynx, mucous membranes moist, TM's normal bilaterally, normal external ear exam - Neck Neck exam: Present: normal inspection, full ROM, trachea midline - Chest Chest inspection: Present: symmetric chest wall rise. Absent: tenderness - Respiratory Respiratory exam: Present: normal lung sounds bilaterally. Absent: respiratory distress, prolonged expiratory phase - Cardiovascular Cardiovascular exam: Present: regular rate, normal rhythm, normal heart sounds - Abdominal Exam Abdominal exam: Present: soft, Non-Tender, normal bowel sounds. Absent: tenderness, distention, guarding, rebound, rigidity, trauma - Extremities Exam Extremities exam: Present: normal inspection, full ROM, normal capillary refill. Absent: tenderness, pedal edema, joint swelling, calf tenderness - Expanded Lower Extremity Exam Neurovascular/Tendon exam: Present: normal capillary refill. Absent: motor deficit, sensory deficit, tendon deficit, extremity cold to touch, pallor - Back Exam Back exam: Present: normal inspection, full ROM. Absent: tenderness, CVA tenderness (R), CVA tenderness (L), vertebral tenderness - Neurological Exam Neurological exam: Present: alert, oriented X3, CN II-XII intact. Absent: motor sensory deficit - Psychiatric Psychiatric exam: Present: normal affect, normal mood - Skin Skin exam: Present: warm, dry, intact, normal color Course Vital Signs Temperature 98.2 F 03/30/19 12:07 Pulse Rate 89 03/30/19 12:07 Respiratory Rate 18 03/30/19 12:07 Blood Pressure 128/92 03/30/19 12:07 O2 Sat by Pulse Oximetry 97 03/30/19 12:07 Temperature 97.8 F 03/30/19 15:21 Pulse Rate 84 03/30/19 15:21 Respiratory Rate 14 03/30/19 15:21 Blood Pressure 100/70 03/30/19 15:21 O2 Sat by Pulse Oximetry 97 03/30/19 15:21 Oxygen Delivery Oxygen Delivery Room Air Medical Decision Making - MDM Narrative Medical decision making narrative: The patient denies acute physical concerns. Physical examination benign. Laboratory studies reviewed urinalysis abnormal urine culture will be sent Keflex given in the ED after medical clearance psychiatric consultation was obtained, the patient has known history of schizophrenia and will be admitted to the psychiatric unit for further treatment and evaluation. - Lab Data Lab results reviewed: Yes I reviewed the patient's lab results. Result diagrams: 03/30/19 13:28 03/30/19 13:28 Lab Results 03/30/19 03/30/19 03/30/19 Range/Units 12:42 12:42 13:28 WBC (4.3-11.1) K/mcL RBC (3.82-4.97) M/mcL Hgb (11.5-15.4) g/dL Hct (35.3-44.9) % MCV (83.0-100.0) fL MCH (28.0-33.3) pg MCHC (31.6-35.5) g/dL RDW (11.5-14.5) % Plt Count (140-400) K/mcL MPV (9.4-12.4) fL Immature Gran % (0-4) % Seg Neutrophils % % Lymphocytes % % Monocytes % % Eosinophils % % Basophils % % Neutrophils # (1.6-8.9) K/mcL Lymphocytes # (0.6-4.6) K/mcL Monocytes # (0.0-1.3) K/mcL Eosinophils # (0.0-0.6) K/mcL Basophils # (0.0-0.2) K/mcL Sodium (136-145) mEq/L Potassium (3.5-5.1) mEq/L Chloride (98-107) mEq/L Carbon Dioxide (23-29) mEq/L BUN (6-20) mg/dL Creatinine (0.60-1.20) mg/dL Est GFR ( Amer) (> 60) Est GFR (Non-Af Amer) (> 60) BUN/Creatinine Ratio (6-26) Glucose (70-105) mg/dL Calculated Osmolality (280-300) Calcium (8.6-10.3) mg/dL Total Bilirubin (0.3-1.0) mg/dL Direct Bilirubin (0.0-0.2) mg/dL Indirect Bilirubin (0.0-1.2) mg/dL AST (13-39) Units/L ALT (7-52) Units/L Alkaline Phosphatase (34-104) Units/L Serum Total Protein (6.4-8.9) g/dL Albumin (3.5-5.7) g/dL Globulin (2.4-3.5) g/dL Albumin/Globulin Ratio (1.1-2.2) Serum , Qual (Negative) Urine Color Yellow (Yellow) Urine Clarity Clear (Clear) Urine pH 6.0 (5.0-8.0) pH Units Ur Specific [place] 1.021 (1.010-1.025) Urine Protein Negative (Neg-Trace) mg/dL Urine Glucose (UA) Normal (Normal) mg/dL Urine Ketones Negative (Negative) mg/dL Urine Blood Trace H (Negative) Urine Nitrite Positive A (Negative) Urine Bilirubin Negative (Negative) Urine Urobilinogen Normal (Normal) mg/dL Ur Leukocyte Esterase Small H (Negative) Urine Microscopic RBC 0-3 (0-3) per hpf Urine Microscopic WBC 0-3 (0-3) per hpf Ur Squamous Epith Cells Many H (None-Few) per lpf Urine Bacteria Many H (None-Few) per hpf Hyaline Casts None Seen (None-Few) per lpf Ur Culture Indicated? YES A (NO) Salicylates (15.0-30.0) mg/dL Urine Opiates Screen Negative (Iyqoqg=759) ng/mL Ur Buprenorphine Scrn Negative (Cutoff=5) ng/mL Acetaminophen (10-20) mcg/mL Ur Barbiturates Screen Negative (Lauxba=032) ng/mL Ur Phencyclidine Scrn Negative (Cutoff=25) ng/mL Ur Amphetamines Screen Negative (Nkkocr=6565) ng/mL U Benzodiazepines Scrn Negative (Qewujt=434) ng/mL Urine Cocaine Screen Negative (Cutoff= 300) ng/mL U Marijuana (THC) Screen Positive H (Cutoff = 50) ng/mL Ur Drug Screen Interp See Below Ethyl Alcohol < 10 (Less than 10) mg/dL 03/30/19 03/30/19 03/30/19 Range/Units 13:28 13:28 13:28 WBC 9.3 (4.3-11.1) K/mcL RBC 4.61 (3.82-4.97) M/mcL Hgb 14.3 (11.5-15.4) g/dL Hct 42.3 (35.3-44.9) % MCV 91.8 (83.0-100.0) fL MCH 31.0 (28.0-33.3) pg MCHC 33.8 (31.6-35.5) g/dL RDW 11.7 (11.5-14.5) % Plt Count 232 (140-400) K/mcL MPV 10.2 (9.4-12.4) fL Immature Gran % 0.3 (0-4) % Seg Neutrophils % 66.8 % Lymphocytes % 24.9 % Monocytes % 6.3 % Eosinophils % 1.3 % Basophils % 0.4 % Neutrophils # 6.2 (1.6-8.9) K/mcL Lymphocytes # 2.3 (0.6-4.6) K/mcL Monocytes # 0.6 (0.0-1.3) K/mcL Eosinophils # 0.1 (0.0-0.6) K/mcL Basophils # 0.0 (0.0-0.2) K/mcL Sodium 141 (136-145) mEq/L Potassium 3.6 (3.5-5.1) mEq/L Chloride 107 (98-107) mEq/L Carbon Dioxide 28 (23-29) mEq/L BUN 13 (6-20) mg/dL Creatinine 0.61 (0.60-1.20) mg/dL Est GFR ( Amer) > 60 (> 60) Est GFR (Non-Af Amer) > 60 (> 60) BUN/Creatinine Ratio 21 (6-26) Glucose 75 (70-105) mg/dL Calculated Osmolality 291 (280-300) Calcium 9.0 (8.6-10.3) mg/dL Total Bilirubin 0.3 (0.3-1.0) mg/dL Direct Bilirubin 0.1 (0.0-0.2) mg/dL Indirect Bilirubin 0.2 (0.0-1.2) mg/dL AST 10 L (13-39) Units/L ALT 11 (7-52) Units/L Alkaline Phosphatase 61 (34-104) Units/L Serum Total Protein 7.2 (6.4-8.9) g/dL Albumin 4.1 (3.5-5.7) g/dL Globulin 3.1 (2.4-3.5) g/dL Albumin/Globulin Ratio 1.3 (1.1-2.2) Serum , Qual Negative (Negative) Urine Color (Yellow) Urine Clarity (Clear) Urine pH (5.0-8.0) pH Units Ur Specific [place] (1.010-1.025) Urine Protein (Neg-Trace) mg/dL Urine Glucose (UA) (Normal) mg/dL Urine Ketones (Negative) mg/dL Urine Blood (Negative) Urine Nitrite (Negative) Urine Bilirubin (Negative) Urine Urobilinogen (Normal) mg/dL Ur Leukocyte Esterase (Negative) Urine Microscopic RBC (0-3) per hpf Urine Microscopic WBC (0-3) per hpf Ur Squamous Epith Cells (None-Few) per lpf Urine Bacteria (None-Few) per hpf Hyaline Casts (None-Few) per lpf Ur Culture Indicated? (NO) Salicylates < 2.5 L (15.0-30.0) mg/dL Urine Opiates Screen ([place]=206) ng/mL Ur Buprenorphine Scrn (Cutoff=5) ng/mL Acetaminophen < 10 L (10-20) mcg/mL Ur Barbiturates Screen (Xsxpcb=056) ng/mL Ur Phencyclidine Scrn (Cutoff=25) ng/mL Ur Amphetamines Screen (Qkhfcu=2655) ng/mL U Benzodiazepines Scrn (Pblqyv=555) ng/mL Urine Cocaine Screen (Cutoff= 300) ng/mL U Marijuana (THC) Screen (Cutoff = 50) ng/mL Ur Drug Screen Interp Ethyl Alcohol (Less than 10) mg/dL - Radiology Data Radiology results reviewed: Yes I reviewed the patient's radiology results.
[2019-03-30 13:45] LABS: Bilirubin,Urine Negative (Negative); Blood,Urine Trace (Negative); Clarity,Urine Clear (Clear); Color,Urine Yellow (Yellow); Glucose,Urine (UA) Normal (Normal); Ketones,Urine Negative (Negative); Leukocyte Esterase,Urine Small (Negative); Nitrite,Urine Positive (Negative); Protein,Urine Negative (Neg-Trace); Specific Gravity,Urine 1.021 (1.010-1.025); Urobilinogen,Urine Normal (Normal)
[2019-03-30 13:48] LABS: Bacteria,Urine Many per hpf (None-Few); Hyaline Casts,Urine None Seen per lpf (None-Few); Squamous Epithelial Cell,Urine Many per lpf (None-Few)
[2019-03-30 13:50] LABS: Amphetamine Screen,Urine Negative ng/mL (Cutoff=1000); Barbiturate Screen,Urine Negative ng/mL (Cutoff=200); Benzodiazepines Screen,Urine Negative ng/mL (Cutoff=200); Cannabinoid Screen,Urine Positive ng/mL (Cutoff = 50); Cocaine Screen,Urine Negative ng/mL (Cutoff= 300); Opiate Screen,Urine Negative ng/mL (Cutoff=300); Phencyclidine Screen,Urine Negative ng/mL (Cutoff=25)
[2019-03-30 13:53] LABS: Basophils % 0.4 %; Eosinophils # 0.1 K/mcL (0.0-0.6); Eosinophils % 1.3 %; Hematocrit 42.3 % (35.3-44.9); Hemoglobin 14.3 g/dL (11.5-15.4); Immature Granulocytes % 0.3 % (0-4); Lymphocytes # 2.3 K/mcL (0.6-4.6); Lymphocytes % 24.9 %; Mean Corpuscular HGB Conc 33.8 g/dL (31.6-35.5); Mean Corpuscular Volume 91.8 fL (83.0-100.0); Mean Platelet Volume 10.2 fL (9.4-12.4); Monocytes # 0.6 K/mcL (0.0-1.3); Monocytes % 6.3 %; Neutrophils # 6.2 K/mcL (1.6-8.9); Platelet Count 232 K/mcL (140-400); Red Blood Count 4.61 M/mcL (3.82-4.97); Red Cell Distribution Width 11.7 % (11.5-14.5); Segmented Neutrophils % 66.8 %; White Blood Count 9.3 K/mcL (4.3-11.1)
[2019-03-30 13:59] LABS: Acetaminophen < 10 mcg/mL (10-20); Alanine Aminotransferase 11 Units/L (7-52); Albumin 4.1 g/dL (3.5-5.7); Albumin/Globulin Ratio 1.3 (1.1-2.2); Alkaline Phosphatase 61 Units/L (34-104); Aspartate Amino Transferase 10 Units/L (13-39); BUN/Creatinine Ratio 21 (6-26); Bilirubin,Direct 0.1 mg/dL (0.0-0.2); Bilirubin,Indirect 0.2 mg/dL (0.0-1.2); Bilirubin,Total 0.3 mg/dL (0.3-1.0); Blood Urea Nitrogen 13 mg/dL (6-20); Carbon Dioxide 28 mEq/L (23-29); Chloride 107 mEq/L (98-107); Globulin 3.1 g/dL (2.4-3.5); Glucose 75 mg/dL (70-105); Osmolality,Calculated 291 (280-300); Potassium 3.6 mEq/L (3.5-5.1); Salicylate < 2.5 mg/dL (15.0-30.0); Sodium 141 mEq/L (136-145); Total Protein 7.2 g/dL (6.4-8.9); eGFR For African Americans > 60 (> 60); eGFR For Non-African Americans > 60 (> 60)
[2019-03-30 14:05] LABS: RBC,Urine 0-3 per hpf (0-3); WBC,Urine 0-3 per hpf (0-3)
[2019-03-30] MEDS ORDERED: cephALEXin 250 MG CAPSULE PO ONE (14:24)
[2019-03-30] MEDS ORDERED: Haloperidol Lactate 5 MG/ML VIAL IM PRN (20:24)
[2019-03-30] MEDS ORDERED: Mag Hydrox/Al Hydrox/Simeth 30 ML UDC PO PRN (20:24)
[2019-03-30] MEDS ORDERED: *HR* LORazepam 1 MG TABLET PO PRN (20:24)
[2019-03-30] MEDS ORDERED: MOM Conc 10 ML UD.LIQ PO PRN (20:24)
[2019-03-30] MEDS ORDERED: Ibuprofen 400 MG TABLET PO PRN (20:24)
[2019-03-30] MEDS ORDERED: *HR* LORazepam 2 MG/ML VIAL IM PRN (20:24)
[2019-03-31] MEDS: Nicotine 7 MG PATCH.TD24 TD SCH (11:19)
--- NOTE | 2019-03-31 11:26 | Psychiatry History & Physical ---
Date of Encounter: 03/31/19 Time of Encounter: 10:20 History of Present Illness Patient Stated Chief Complaint: I am worthless, no reason to be around. Medicare Admission Attestation: For traditional Medicare patients the provided hospital inpatient services are reasonable and necessary and in the case of services not specified as inpatient-only under 42 CFR 419.22 (n), that they are appropriately provided as inpatient services in accordance 42 CFR 412.3. For Critical Access Hospital the patient may reasonably be expected to be discharged or transferred to a hospital within 96 hours after admission to the Critical Access Hospital. Admitted From: Emergency Dept Plans for Post Hospital Care: Home History of Present Illness: Ms. Chen is a 33 year old female who presents with auditory hallucinations telling her "she is worthless and not good for anyone". She does not recognize the voices. She also endorses suicide ideation without plan or intent. She has a history of previous hospitalization after a overdose last year. Psychiatric history of PTSD and Schizophrenia per chart review. Her last dose of Palperidone was on the . She is also on Palperidone 9 mg, Tegretol 200 mg BID and Cogentin. She endorses auditory hallucinations during interview and thoughts of self harm during interview without intent or plan. Past Med Surg Social Fam HX - Past Medical History Source: patient, old records reviewed, nursing notes reviewed Medical history: arthritis, migraine - Past Psychiatric History Psychiatric history: Reports: bipolar, PTSD, schizophrenia, previous psychiatric hospitalization Past psychiatric history details: Previously hospitalized last year for medication overdose per chart record. - Past Surgical History Surgical History: - Social History Smoking Status: Current every day smoker Smokeless Tobacco Status: Yes ("5 cigs a day") Alcohol use: none Drug use: marijuana ("1 to 2 joints per day") Occupational status: unemployed Current living situation: Home (Lives with mother) Activity Level: Independent ambulation Recent Out of Country Travel Within the Last 8 Weeks: No Exposure or Possible Exposure to Illness During Travel: No Medications & Allergies Amantadine HCl [Amantadine] 100 mg PO DAILY 03/30/19 [History] Benztropine [Cogentin] 0.5 mg PO BID 03/30/19 [History] CarBAMazepine [Equetro] 200 mg PO BID 03/30/19 [History] Paliperidone [Paliperidone ER] 9 mg PO DAILY 03/30/19 [History] Paliperidone Palmitate [Invega Sustenna] 1.5 ml IM Q4W 03/31/19 [History] Allergy/AdvReac Type Severity Reaction Status Date / Time tramadol [From Ultra] Allergy See Verified 03/31/19 10:37 Comments propoxyphene AdvReac Vomiting Verified 03/31/19 10:37 [From Darvocet-N] Review of Systems Constitutional: Denies: fever, chills, weakness Eyes: Denies: eye pain, eye discharge, vision change Ears, Nose, Throat: Denies: ear pain, dental pain, hearing loss, congestion Cardiovascular: Denies: chest pain, palpitations, dyspnea on exertion, edema, syncope Respiratory: Denies: cough, dyspnea, wheezes Gastrointestinal: Denies: abdominal pain, nausea, vomiting, diarrhea, constipation Genitourinary female: Denies: urgency, dysuria, frequency Musculoskeletal: Denies: back pain, joint swelling, joint pain, myalgia Integumentary: Denies: rash, lesions, pruritus Neurological: Denies: headache, weakness, numbness, confusion, memory loss, vertigo Psychiatric: Reports: depression, suicidal ideation, auditory hallucinations, hopelessness. Denies: anxiety, homicidal ideation, visual hallucinations Endocrine: Denies: fatigue, heat or cold intolerance, polydipsia Exam - HEENT Eye exam IM: Present: normal appearance ENT exam IM: Present: normal exam - Neurological Neurological exam: Present: CN II-XII intact, alert, reflexes normal, strengths equal and symetr throughout. Absent: facial droop, speech deficit - Respiratory Respiratory exam IM: Absent: accessory muscle use, respiratory distress, wheezes, tachypnea - Extremities Extremities exam IM: Present: full ROM, normal inspection. Absent: mottling, pedal edema, warm - Skin Skin exam IM: Present: normal color. Absent: cyanosis, pallor, petechiae, rash - Constitutional Vitals: Temp Pulse Resp BP Pulse Ox 98.8 F 77 16 102/71 99 03/30/19 21:00 03/30/19 21:00 03/30/19 21:00 03/30/19 21:00 03/30/19 21:00 General appearance: age & developmentally appropriate, unkempt - Musculoskeletal Gait: normal Station: stiff Strength & Tone: normal for patient - Psychiatric Patient Orientation: Yes Person, Yes Time, Yes Place, No Circumstance Level of alertness: Alert, Follows commands Behavior: cooperative, nervous, anxious Psychomotor activity: Normal Eye Contact: Intense Contact Mood Description: Depressed, Anxious Patient description of mood: "worthless, not good enough". Affect description: congruent with mood, dysphoric, anxious Speech Volume: Normal Speech pattern: normal rate, normal rhythm, normal tone, fluent, appropriate Language & Vocabulary: consistent with education Thought Process: Intact, Logical, Linear Thought Content: Yes Intact, Yes Suicidal ideation, No Homicidal ideation, No Overt delusions, No Preoccupation, No Spiritism delusion, No Thought insertion Perceptual Disturbances: Yes Reacting to internal stimuli, Yes Auditory hallucinations, No Visual hallucinations, No Tactile hallucinations Attention Span Ability: Capable of Focused Attention Memory Description: Grossly Intact, Immediate Intact Patient Reliability: Reliable Historian Fund of knowledge: Yes average, Yes aware of current events Intelligence Estimate: Average Judgment: Fair Insight: Partial Results - Drug Levels and Toxicology Drug Levels and Toxicology: Drug Levels and Toxicity 03/30/19 03/30/19 03/30/19 12:42 13:28 13:28 Urine Opiates Screen Negative Acetaminophen < 10 L Ur Barbiturates Screen Negative Ur Phencyclidine Scrn Negative Ur Amphetamines Screen Negative U Benzodiazepines Scrn Negative Urine Cocaine Screen Negative U Marijuana (THC) Screen Positive H Ethyl Alcohol < 10 - Labs Labs: Laboratory Last Values WBC 9.3 K/mcL (4.3-11.1) 03/30/19 13:28 RBC 4.61 M/mcL (3.82-4.97) 03/30/19 13:28 Hgb 14.3 g/dL (11.5-15.4) 03/30/19 13:28 Hct 42.3 % (35.3-44.9) 03/30/19 13:28 MCV 91.8 fL (83.0-100.0) 03/30/19 13:28 MCH 31.0 pg (28.0-33.3) 03/30/19 13:28 MCHC 33.8 g/dL (31.6-35.5) 03/30/19 13:28 RDW 11.7 % (11.5-14.5) 03/30/19 13:28 Plt Count 232 K/mcL (140-400) 03/30/19 13:28 MPV 10.2 fL (9.4-12.4) 03/30/19 13:28 Immature Gran % 0.3 % (0-4) 03/30/19 13:28 Seg Neutrophils % 66.8 % 03/30/19 13:28 Lymphocytes % 24.9 % 03/30/19 13:28 Monocytes % 6.3 % 03/30/19 13:28 Eosinophils % 1.3 % 03/30/19 13:28 Basophils % 0.4 % 03/30/19 13:28 Neutrophils # 6.2 K/mcL (1.6-8.9) 03/30/19 13:28 Lymphocytes # 2.3 K/mcL (0.6-4.6) 03/30/19 13:28 Monocytes # 0.6 K/mcL (0.0-1.3) 03/30/19 13:28 Eosinophils # 0.1 K/mcL (0.0-0.6) 03/30/19 13:28 Basophils # 0.0 K/mcL (0.0-0.2) 03/30/19 13:28 Sodium 141 mEq/L (136-145) 03/30/19 13:28 Potassium 3.6 mEq/L (3.5-5.1) 03/30/19 13:28 Chloride 107 mEq/L (98-107) 03/30/19 13:28 Carbon Dioxide 28 mEq/L (23-29) 03/30/19 13:28 BUN 13 mg/dL (6-20) 03/30/19 13:28 Creatinine 0.61 mg/dL (0.60-1.20) 03/30/19 13:28 Est GFR ( Amer) > 60 (> 60) 03/30/19 13:28 Est GFR (Non-Af Amer) > 60 (> 60) 03/30/19 13:28 BUN/Creatinine Ratio 21 (6-26) 03/30/19 13:28 Glucose 75 mg/dL (70-105) 03/30/19 13:28 Calculated Osmolality 291 (280-300) 03/30/19 13:28 Calcium 9.0 mg/dL (8.6-10.3) 03/30/19 13:28 Total Bilirubin 0.3 mg/dL (0.3-1.0) 03/30/19 13:28 Direct Bilirubin 0.1 mg/dL (0.0-0.2) 03/30/19 13:28 Indirect Bilirubin 0.2 mg/dL (0.0-1.2) 03/30/19 13:28 AST 10 Units/L (13-39) L 03/30/19 13:28 ALT 11 Units/L (7-52) 03/30/19 13:28 Alkaline Phosphatase 61 Units/L (34-104) 03/30/19 13:28 Serum Total Protein 7.2 g/dL (6.4-8.9) 03/30/19 13:28 Albumin 4.1 g/dL (3.5-5.7) 03/30/19 13:28 Globulin 3.1 g/dL (2.4-3.5) 03/30/19 13:28 Albumin/Globulin Ratio 1.3 (1.1-2.2) 03/30/19 13:28 Serum , Qual Negative (Negative) 03/30/19 13:28 Urine Color Yellow (Yellow) 03/30/19 12:42 Urine Clarity Clear (Clear) 03/30/19 12:42 Urine pH 6.0 pH Units (5.0-8.0) 03/30/19 12:42 Ur Specific [place] 1.021 (1.010-1.025) 03/30/19 12:42 Urine Protein Negative mg/dL (Neg-Trace) 03/30/19 12:42 Urine Glucose (UA) Normal mg/dL (Normal) 03/30/19 12:42 Urine Ketones Negative mg/dL (Negative) 03/30/19 12:42 Urine Blood Trace (Negative) H 03/30/19 12:42 Urine Nitrite Positive (Negative) A 03/30/19 12:42 Urine Bilirubin Negative (Negative) 03/30/19 12:42 Urine Urobilinogen Normal mg/dL (Normal) 03/30/19 12:42 Ur Leukocyte Esterase Small (Negative) H 03/30/19 12:42 Urine Microscopic RBC 0-3 per hpf (0-3) 03/30/19 12:42 Urine Microscopic WBC 0-3 per hpf (0-3) 03/30/19 12:42 Ur Squamous Epith Cells Many per lpf (None-Few) H 03/30/19 12:42 Urine Bacteria Many per hpf (None-Few) H 03/30/19 12:42 Hyaline Casts None Seen per lpf (None-Few) 03/30/19 12:42 Ur Culture Indicated? YES (NO) A 03/30/19 12:42 Salicylates < 2.5 mg/dL (15.0-30.0) L 03/30/19 13:28 Urine Opiates Screen Negative ng/mL (Vvpajw=876) 03/30/19 12:42 Ur Buprenorphine Scrn Negative ng/mL (Cutoff=5) 03/30/19 12:42 Acetaminophen < 10 mcg/mL (10-20) L 03/30/19 13:28 Ur Barbiturates Screen Negative ng/mL (Iwdmpp=523) 03/30/19 12:42 Ur Phencyclidine Scrn Negative ng/mL (Cutoff=25) 03/30/19 12:42 Ur Amphetamines Screen Negative ng/mL (Wawldr=3844) 03/30/19 12:42 U Benzodiazepines Scrn Negative ng/mL (Yzsknb=237) 03/30/19 12:42 Urine Cocaine Screen Negative ng/mL (Cutoff= 300) 03/30/19 12:42 U Marijuana (THC) Screen Positive ng/mL (Cutoff = 50) H 03/30/19 12:42 Ur Drug Screen Interp See Below 03/30/19 12:42 Ethyl Alcohol < 10 mg/dL (Less than 10) 03/30/19 13:28 Assessment and Plan (1) Bipolar disorder, current episode depressed, severe, with psychotic features Current visit: No Status: Acute Plan: Admit inpatient for safety and stabilization, Close observation, Suicide Precautions per unit protocol, Encourage participation in unit milieu, Group Therapy, Monitor sleep Additional Plan: Client had previous Invega IM on of this month. Discussed with client possible changes in medications. We will discontinue her oral Paliperidone, order a Tegretol level and add on Halidol 5 mg HS. Client states Halidol in the past has helped, but Abilify had no effect on her psychosis and mood. History of Marijuana use may have made psychosis worse. Advised client to halt self medication at home upon discharge. Risks, benefits, side effects, alternatives discussed w/pt: Yes Patient agreeable to treatment: Yes Plans for Post Hospital Care: Home Estimated Length of Stay (Days): 4 - Attending Attestation I examined this patient and my medical decision-making was reviewed with the Resident Physician. I agree with the documented findings, disposition and treatment plan as described except to the extent set forth below. Agree with mental status, assessment, and plan. Encourage groups, therapist to work on linkage.
[2019-03-31 13:27] LABS: Thyroid Stimulating Hormone 0.819 mcIU/mL (0.340-5.600)
[2019-03-31 13:54] LABS: Estimated Average Glucose 117 mg/dl
[2019-03-31] MEDS: Haloperidol Oral Conc 10 MG/5 ML UDC PO SCH (21:26)
[2019-03-31] MEDS: cephALEXin 500 MG CAPSULE PO SCH (21:26)
[2019-03-31] MEDS: hydrOXYzine pamoate 25 MG CAPSULE PO PRN (21:26)
[2019-03-31] MEDS: traZODone 50 MG TABLET PO PRN (21:26)
[2019-04-01] MEDS: Nicotine 7 MG PATCH.TD24 TD SCH (08:48)
[2019-04-01] MEDS: Haloperidol Oral Conc 10 MG/5 ML UDC PO SCH (08:49)
[2019-04-01] MEDS: cephALEXin 500 MG CAPSULE PO SCH ×2 (08:49→21:59)
--- NOTE | 2019-04-01 13:40 | Psychiatry Progress Note ---
Date of Encounter: 04/01/19 Time of Encounter: 09:45 Subjective Interval history: Client was seen at bedside. I woke client up for the interview. She is denying suicide ideation, but continues to endorse auditory hallucinations telling her "she is worthless". The voices are not telling her to hurt herself or others. She the voices are not recognized as someone she is familiar with. Client slept well last night and admits to feeling rested. She doesn't report any side effects from the halidol. Client didn't want to participate in a AIMS assessment today, will try again tomorrow. Carbamazepine levels were 3 this morning which is below therapeutic level. Her Carbamazepine was discontinued upon admission and Halidol 5 mg HS was added. Her Carbamazepine levels could have been sub- therapeutic before admission due to metabolic enzyme autoactivation by CY pathway and dose adjustment needed, and or client was not compliant with medication. TSH, free T4 were within normal limits. Review of Systems Constitutional: Denies: fever, chills, weakness, night sweats Eyes: Denies: eye pain, vision change Cardiovascular: Denies: chest pain, palpitations, edema, syncope Respiratory: Denies: cough, dyspnea, wheezes Gastrointestinal: Denies: abdominal pain, nausea, vomiting, diarrhea, constipation Genitourinary female: Denies: urgency, dysuria, frequency, hematuria, discharge Musculoskeletal: Denies: joint pain, myalgia Integumentary: Denies: rash Neurological: Denies: headache, weakness, confusion, memory loss, abnormal gait, vertigo Psychiatric: Reports: depression, suicidal ideation, auditory hallucinations, hopelessness. Denies: anxiety, homicidal ideation, visual hallucinations Results - Vital Signs Vital Signs: Temp Pulse Resp BP Pulse Ox 98.2 F 80 14 115/82 99 03/31/19 20:20 03/31/19 20:20 03/31/19 20:20 03/31/19 20:20 03/31/19 20:20 - Labs Labs: Laboratory Results - last 24 hr 03/31/19 11:21 Est Mean Plasma Glucose 117 Hemoglobin A1c 5.7 H Assessment and Plan (1) Bipolar disorder, current episode depressed, severe, with psychotic features Current visit: No Status: Acute Plan: Continue hospitalization, Close observation, Suicide Precautions per unit protocol, Encourage participation in unit milieu, Group Therapy, Monitor sleep Risks, benefits, side effects, alternatives discussed w/pt: Yes Patient agreeable to treatment: Yes Consult Discharge Plan - Plan Referrals: NONE,PCP [Primary Care Provider] - - Attending Attestation I examined this patient and my medical decision-making was reviewed with the Resident Physician. I agree with the documented findings, disposition and treatment plan as described except to the extent set forth below. Agree with mental status, assessment, and plan. Continue medications, encourage group therapy, therapist to work on discharge planning. Psychiatry Exam - Constitutional Vitals: Temp Pulse Resp BP Pulse Ox 98.2 F 80 14 115/82 99 03/31/19 20:20 03/31/19 20:20 03/31/19 20:20 03/31/19 20:20 03/31/19 20:20 General appearance: age & developmentally appropriate, unkempt, malodorous - Musculoskeletal Strength & Tone: normal for patient - Psychiatric Patient Orientation: Yes Person, Yes Time, Yes Place, Yes Circumstance Level of alertness: Alert, Follows commands Behavior: calm, cooperative Psychomotor activity: Normal Eye Contact: Maintains Eye Contact Mood Description: Euthymic/stable Affect description: congruent with mood Speech Volume: Normal Speech pattern: normal rate, normal rhythm, normal tone, fluent, appropriate Language & Vocabulary: consistent with education Thought Process: Intact, Thought Blocking Thought Content: Yes Intact, No Suicidal ideation, No Homicidal ideation, No Overt delusions Perceptual Disturbances: Yes Reacting to internal stimuli, Yes Auditory hallucinations, No Visual hallucinations Attention Span Ability: Capable of Focused Attention Memory Description: Grossly Intact, Immediate Intact, Recent Intact Patient Reliability: Reliable Historian Fund of knowledge: Yes average Intelligence Estimate: Average Judgment: Fair Insight: Partial
[2019-04-01] MEDS: hydrOXYzine pamoate 25 MG CAPSULE PO PRN (21:59)
[2019-04-01] MEDS: traZODone 50 MG TABLET PO PRN (21:59)
[2019-04-02] MEDS: cephALEXin 500 MG CAPSULE PO SCH ×2 (08:19→21:17)
[2019-04-02] MEDS: Nicotine 7 MG PATCH.TD24 TD SCH (08:19)
[2019-04-02] MEDS: Haloperidol Oral Conc 10 MG/5 ML UDC PO SCH (08:20)
--- NOTE | 2019-04-02 12:12 | Psychiatry Progress Note ---
Date of Encounter: 04/02/19 Time of Encounter: 11:00 Subjective Interval history: patient continues to auditory hallucinations. She is tolerating the Haldol. The hallucinations are disturbing to her and sometimes all her to hurt herself. She has been up and pacing some of the times but spends a lot of time secluded in her room. Review of Systems Psychiatric: Reports: depression, suicidal ideation, auditory hallucinations, hopelessness. Denies: anxiety, homicidal ideation, visual hallucinations Results - Vital Signs Vital Signs: Temp Pulse Resp BP Pulse Ox 97.5 F L 87 20 96/77 98 04/02/19 08:36 04/02/19 08:36 04/02/19 08:36 04/02/19 08:36 04/02/19 08:36 Assessment and Plan (1) Bipolar disorder, current episode depressed, severe, with psychotic features Current visit: No Status: Acute Plan: Continue hospitalization, Close observation, Suicide Precautions per unit protocol, Encourage participation in unit milieu, Group Therapy, Monitor sleep, Monitor appetite Additional Plan: Current medications. Consider antidepressant. Encourage group attendance. Risks, benefits, side effects, alternatives discussed w/pt: Yes Patient agreeable to treatment: Yes Consult Discharge Plan - Plan Referrals: NONE,PCP [Primary Care Provider] - Psychiatry Exam - Constitutional Vitals: Temp Pulse Resp BP Pulse Ox 97.5 F L 87 20 96/77 98 04/02/19 08:36 04/02/19 08:36 04/02/19 08:36 04/02/19 08:36 04/02/19 08:36 General appearance: age & developmentally appropriate - Musculoskeletal Gait: slow Station: relaxed Strength & Tone: mild weakness - Psychiatric Patient Orientation: Yes Person, Yes Time, Yes Place Level of alertness: Alert Behavior: guarded Psychomotor activity: Slowed Eye Contact: Minimal Contact Mood Description: Depressed Patient description of mood: ad Affect description: dysphoric Speech Volume: Soft/Quiet Speech pattern: slowed Language & Vocabulary: consistent with education Thought Process: Intact Thought Content: Yes Suicidal ideation, No Homicidal ideation, Yes Paranoid delusion Perceptual Disturbances: Yes Auditory hallucinations, No Visual hallucinations Attention Span Ability: Capable of Focused Attention Memory Description: Grossly Intact Patient Reliability: Reliable Historian Fund of knowledge: Yes abstraction ability, Yes aware of current events Intelligence Estimate: Average Judgment: Limited Insight: Minimal
[2019-04-02] MEDS: hydrOXYzine pamoate 25 MG CAPSULE PO PRN (21:17)
[2019-04-02] MEDS: traZODone 50 MG TABLET PO PRN (21:17)
--- NOTE | 2019-04-03 10:16 | Psychiatry Progress Note ---
Date of Encounter: 04/03/19 Time of Encounter: 10:00 Subjective Interval history: Patient continues to report auditory hallucinations though they have improved and they are now more quiet and no longer command they are still distressing to her. She denied suicidal or homicidal thoughts. She still is pacing the unit though she has been able to participate in some groups. She is tolerating the medication although she has some muscle stiffness. Review of Systems Psychiatric: Reports: depression, auditory hallucinations, hopelessness. Denies: anxiety, homicidal ideation, visual hallucinations Results - Vital Signs Vital Signs: Temp Pulse Resp BP Pulse Ox 98.2 F 76 16 102/82 97 04/02/19 20:41 04/02/19 20:41 04/02/19 20:41 04/02/19 20:41 04/02/19 20:41 Assessment and Plan (1) Bipolar disorder, current episode depressed, severe, with psychotic features Current visit: No Status: Acute Plan: Continue hospitalization, Close observation, Suicide Precautions per unit protocol, Encourage participation in unit milieu, Group Therapy, Monitor sleep, Monitor appetite Additional Plan: We will add Cogentin to help with stiffness and possible EPS. Will increase Haldol by an additional 2 mg at bedtime. Encourage group attendance. Risks, benefits, side effects, alternatives discussed w/pt: Yes Patient agreeable to treatment: Yes Consult Discharge Plan - Plan Referrals: [facility] [Outside] Psychiatry Exam - Constitutional Vitals: Temp Pulse Resp BP Pulse Ox 98.2 F 76 16 102/82 97 04/02/19 20:41 04/02/19 20:41 04/02/19 20:41 04/02/19 20:41 04/02/19 20:41 General appearance: age & developmentally appropriate - Musculoskeletal Gait: slow Station: stiff Strength & Tone: other (Status) - Psychiatric Patient Orientation: Yes Person, Yes Time, Yes Place, Yes Circumstance Level of alertness: Alert Behavior: calm Psychomotor activity: Slowed Eye Contact: Minimal Contact Mood Description: Euthymic/stable Patient description of mood: Okay Affect description: constricted Speech Volume: Soft/Quiet Speech pattern: impoverished, monotone Language & Vocabulary: consistent with education Thought Process: Thought Blocking Thought Content: No Suicidal ideation, No Homicidal ideation Perceptual Disturbances: Yes Auditory hallucinations, No Visual hallucinations Attention Span Ability: Capable of Focused Attention Memory Description: Grossly Intact Patient Reliability: Reliable Historian Fund of knowledge: Yes abstraction ability, Yes aware of current events Intelligence Estimate: Average Judgment: Limited Insight: Partial
[2019-04-03] MEDS: Haloperidol Oral Conc 10 MG/5 ML UDC PO SCH (10:31)
[2019-04-03] MEDS: cephALEXin 500 MG CAPSULE PO SCH ×2 (10:44→20:54)
[2019-04-03] MEDS: Nicotine 7 MG PATCH.TD24 TD SCH (10:56)
[2019-04-03] MEDS: traZODone 50 MG TABLET PO PRN (20:54)
[2019-04-04] MEDS: cephALEXin 500 MG CAPSULE PO SCH ×2 (08:52→21:16)
[2019-04-04] MEDS: Nicotine 7 MG PATCH.TD24 TD SCH (08:52)
--- NOTE | 2019-04-04 09:00 | Psychiatry Progress Note ---
Date of Encounter: 04/04/19 Time of Encounter: 08:10 Subjective Interval history: Patient is improving but she is still hearing whispers which are very distressing to her. There are no longer command. She does feel hopeless but has no active suicidal ideations. She is doing better with stiffness since the addition of Cogentin. She says the voices do go away completely when she is well treated. She is fearful and paranoid. Review of Systems Psychiatric: Reports: depression, auditory hallucinations, hopelessness. Denies: anxiety, homicidal ideation, visual hallucinations Results - Vital Signs Vital Signs: Temp Pulse Resp BP Pulse Ox 98.5 F 72 18 104/72 97 04/03/19 21:00 04/03/19 21:00 04/03/19 21:00 04/03/19 21:00 04/03/19 21:00 Assessment and Plan (1) Bipolar disorder, current episode depressed, severe, with psychotic features Current visit: No Status: Acute Plan: Continue hospitalization, Close observation, Suicide Precautions per unit protocol, Encourage participation in unit milieu, Group Therapy, Monitor sleep, Monitor appetite Additional Plan: Increase Haldol to 5 mg by mouth twice a day for further treatment of psychotic symptoms. Encourage group attendance. Therapist to work on discharge planning. Risks, benefits, side effects, alternatives discussed w/pt: Yes Patient agreeable to treatment: Yes Consult Discharge Plan - Plan Referrals: [facility] [Outside] Psychiatry Exam - Constitutional Vitals: Temp Pulse Resp BP Pulse Ox 98.5 F 72 18 104/72 97 04/03/19 21:00 04/03/19 21:00 04/03/19 21:00 04/03/19 21:00 04/03/19 21:00 General appearance: age & developmentally appropriate, disheveled, malodorous - Musculoskeletal Gait: slow Station: stooped Strength & Tone: mild weakness - Psychiatric Patient Orientation: Yes Person, Yes Time, Yes Place, Yes Circumstance Level of alertness: Alert Behavior: guarded, suspicious Psychomotor activity: Slowed Eye Contact: Minimal Contact Mood Description: Anxious Patient description of mood: Worried Affect description: flat Speech Volume: Soft/Quiet Speech pattern: monotone Language & Vocabulary: consistent with education Thought Process: Perseveration Thought Content: Yes Paranoid delusion Perceptual Disturbances: Yes Auditory hallucinations Attention Span Ability: Capable of Focused Attention Memory Description: Grossly Intact Patient Reliability: Reliable Historian Fund of knowledge: Yes abstraction ability, Yes aware of current events Intelligence Estimate: Average Judgment: Limited Insight: Minimal
[2019-04-04] MEDS: traZODone 50 MG TABLET PO PRN (21:16)
[2019-04-04] MEDS: hydrOXYzine pamoate 25 MG CAPSULE PO PRN (21:17)
--- NOTE | 2019-04-05 09:49 | Psychiatry Progress Note ---
Date of Encounter: 04/05/19 Time of Encounter: 08:40 Subjective Interval history: Patient continues to be somewhat fearful and paranoid and spends a lot of time in her room particularly right now that we have a few louder patients on the unit. She continues to have auditory hallucinations though there are no whispers and difficult for her to understand. She continues to feel sad at times. She does not have suicidal thoughts. Review of Systems Psychiatric: Reports: depression, auditory hallucinations, hopelessness. Denies: anxiety, homicidal ideation, visual hallucinations Results - Vital Signs Vital Signs: Temp Pulse Resp BP Pulse Ox 97.6 F 56 16 101/67 96 04/04/19 21:00 04/04/19 21:00 04/04/19 21:00 04/04/19 21:00 04/04/19 21:00 Assessment and Plan (1) Bipolar disorder, current episode depressed, severe, with psychotic features Current visit: No Status: Acute Plan: Continue hospitalization, Close observation, Suicide Precautions per unit protocol, Encourage participation in unit milieu, Group Therapy, Monitor sleep, Monitor appetite Additional Plan: Continues to have auditory hallucinations so increase her Haldol to 5 mg by mouth twice a day. Encourage group therapy. Therapists work on discharge pl anning. Risks, benefits, side effects, alternatives discussed w/pt: Yes Patient agreeable to treatment: Yes Consult Discharge Plan - Plan Referrals: [facility] [Outside] Psychiatry Exam - Constitutional Vitals: Temp Pulse Resp BP Pulse Ox 97.6 F 56 16 101/67 96 04/04/19 21:00 04/04/19 21:00 04/04/19 21:00 04/04/19 21:00 04/04/19 21:00 General appearance: age & developmentally appropriate, disheveled - Musculoskeletal Gait: slow Station: stooped Strength & Tone: mild weakness - Psychiatric Patient Orientation: Yes Person, Yes Time, Yes Place, Yes Circumstance Level of alertness: Alert Behavior: withdrawn Psychomotor activity: Slowed Eye Contact: Minimal Contact Mood Description: Anxious Patient description of mood: Okay Affect description: blunted Speech Volume: Soft/Quiet Speech pattern: slowed Language & Vocabulary: consistent with education Thought Process: Morrice Thought Content: No Suicidal ideation, No Homicidal ideation, Yes Paranoid delusion Perceptual Disturbances: Yes Auditory hallucinations, No Visual hallucinations Attention Span Ability: Capable of Focused Attention Memory Description: Grossly Intact Patient Reliability: Reliable Historian Fund of knowledge: Yes abstraction ability, Yes aware of current events Intelligence Estimate: Average Judgment: Limited Insight: Partial
[2019-04-05] MEDS: Nicotine 7 MG PATCH.TD24 TD SCH (10:19)
[2019-04-05] MEDS: cephALEXin 500 MG CAPSULE PO SCH ×2 (10:19→21:17)
[2019-04-05] MEDS: traZODone 50 MG TABLET PO PRN (21:17)
[2019-04-05] MEDS: hydrOXYzine pamoate 25 MG CAPSULE PO PRN (21:17)
[2019-04-06] MEDS: Nicotine 7 MG PATCH.TD24 TD SCH (09:17)
[2019-04-06 10:02] VITALS: BP 103/73
--- NOTE | 2019-04-06 11:52 | Discharge Summary ---
Date of Encounter: 04/06/19 Time of Encounter: 11:49 Diagnosis - Discharge Diagnosis (1) Bipolar disorder, current episode depressed, severe, with psychotic features Status: Acute Medications - Discharge Medications Prescriptions: Amantadine HCl [Amantadine] 100 mg PO DAILY #30 capsule Haloperidol [Haldol] 5 mg PO BID #60 tablet Amantadine HCl [Amantadine] 100 mg PO DAILY #30 capsule 04/06/19 [Rx] Haloperidol [Haldol] 5 mg PO BID #60 tablet 04/06/19 [Rx] Allergy/AdvReac Type Severity Reaction Status Date / Time tramadol [From Ultram] Allergy See Verified 03/31/19 10:37 Comments propoxyphene AdvReac Vomiting Verified 03/31/19 10:37 [From Darvocet-N] Results Procedures and tests throughout hospitalization: Completed Lab Orders Category Date Time Status A1C [Hgb A1C] Routine Lab 03/31/19 11:21 Completed Acetaminophen Stat Lab 03/30/19 13:28 Completed Basic Metabolic Panel Stat Lab 03/30/19 13:28 Completed Carbamazepine (Tegretol) Routine Lab 03/31/19 10:54 Completed Complete Blood Count [HEME] Stat Lab 03/30/19 13:28 Completed Drug Screen, Urine [UCHEM] Stat Lab 03/30/19 12:42 Completed Ethanol Stat Lab 03/30/19 13:28 Completed HCG,Routine Test Stat Lab 03/30/19 13:28 Completed Hepatic Panel Stat Lab 03/30/19 13:28 Completed Salicylate Stat Lab 03/30/19 13:28 Completed Thyroid Stimulating Hormone Routine Lab 03/31/19 11:21 Completed Thyroxine (T4) Free Routine Lab 03/31/19 11:21 Completed Urinalysis Reflex Cult & Micro [URIN] Stat Lab 03/30/19 12:42 Completed Completed Microbiology Orders Category Date Time Status Culture,Urine [RM] Stat Lab 03/30/19 12:42 Completed Provider Date of admission: 03/30/19 17:50 Primary care physician: PCP NONE Discharging clinician: Bobby Valera Psychiatry Exam - Constitutional Vitals: Temp Pulse Resp BP Pulse Ox 96.5 F L 92 18 103/73 98 04/06/19 09:00 04/06/19 09:00 04/06/19 09:00 04/06/19 09:00 04/06/19 09:00 General appearance: age & developmentally appropriate - Musculoskeletal Gait: normal Station: relaxed Strength & Tone: normal for patient - Psychiatric Patient Orientation: Yes Person, Yes Time, Yes Place, No Circumstance Level of alertness: Alert, Follows commands Behavior: calm, cooperative Psychomotor activity: Normal Eye Contact: Intense Contact Mood Description: Euthymic/stable Patient description of mood: Excited, happy Affect description: flat Speech Volume: Normal Speech pattern: normal rate, normal rhythm, normal tone, fluent, appropriate Language & Vocabulary: consistent with education Thought Process: Intact, Logical, Linear, Goal Oriented Thought Content: Yes Intact, No Suicidal ideation, No Homicidal ideation, No Overt delusions, No Preoccupation, No Paranoid delusion, No Sikhism delusion, No Obsessive thoughts, No Thought broadcasting, No Thought insertion Perceptual Disturbances: No Reacting to internal stimuli, No Auditory hallucinations, No Visual hallucinations Attention Span Ability: Capable of Focused Attention, Capable of Sustained Attention Memory Description: Grossly Intact, Immediate Intact, Recent Intact Patient Reliability: Reliable Historian Fund of knowledge: Yes abstraction ability Intelligence Estimate: Average Judgment: Fair Insight: Partial Hospital Course Hospital course: Ms. Chen is a 33 year old female who presented with auditory hallucinations telling her "she is worthless and not good for anyone". She didn't recognize the voices and no command hallucinations. She did endorse suicide ideation without plan or intent during admission. She has a history of hospitalization after a overdose last year. Client endorses psychiatry history of PTSD, Schizophrenia per chart review. Last dose of Palperidone was on the of last month. She was on Palperidone 9 mg PO and was discontinued when admitted. Tegretol was not continued during inpatient stay. Carbamazepine level was sub-therapeutic at 3. Client was placed on Halidol 5 mg BID for auditory hallucinations and mood stability. Client's mood improved during course of stay. She now denies SI/SA/HI/VILLALPANDO/AH. She is being discharged on Halidol 5 mg BID and will be living with her mother. Follow-up with [facility] is on the of this month. Time spent discussing smoking cessation with patient: 3 to 10 minutes Does patient wish to continue nicotine replacement upon disc: No - Time Spent with Patient Total time spent providing and/or coordinating discharge services: Greater than 30 minutes Assessment and Plan - Patient/Caregiver Discharge Instructions Activity: resume usual activities as tolerated Diet: regular diet - Follow up Plan Follow up with: [facility] [Outside] - 04/10/19 11:00 am (You have an appointment scheduled with Pippa Khan on Wednesday, April 10, 2019 at 11:00 AM for Counseling and Case Management. You have an appointment scheduled for Wednesday, April 24, 2019 at 11:20 AM with Jose Bustillos for medication management. Please contact the office at least 24 hours in advance if you are unable to keep your appointment(s). ) Functional capacity at discharge: independent ambulation Overall status at discharge: Stable Disposition: Home, Self-Care Quality - Multiple Antipsychotics Patient discharged on 2 or more antipsychotic medications: No - Justification Documentation of: No documentation of justification - Attending Attestation I examined this patient and my medical decision-making was reviewed with the Resident Physician. I agree with the documented findings, disposition and tr eatment plan as described except to the extent set forth below. Patient was educated of her diagnosis and the risks, benefits, and side effects of this treatment and alternative treatment options and was monitored for responsiveness and side effects. Mood, anxiety, sleep, appetite, and interest improved, as did future orientation. Self-harm thoughts subsided, thinking cleared, psychosis resolved, and mood stabilized. Patient was able to attend both individual and group therapy sessions as well as meeting with the psychiatrist daily and urged to discuss any medication or treatment issues or other concerns. The patient was educated primarily by verbal means about their diagnosis and manifestations in their life. The option for treatment including group and individual therapy programming was offered to the patient in the use of medications with all their potential risks, benefits, and side effects were discussed with the patient at length. The patient was given the opportunity to ask questions and was noted to participate in the treatment in the planning process. The patient felt ready and eager to be discharged from the inpatient psychiatric unit to continue on with treatment as an outpatient. The patient agreed that she is safe for this disposition. The patient was considered to be able to participate in informed consent and decision making with respect to medical, legal, and financial issues of the time of discharge. At the time of discharge the patient adamantly denied any concerns for lethality including suicidal or homicidal thoughts ideations or plans and was future oriented toward ongoing mental health care, medical follow-up and sobriety. Total time spent with client greater than 30 minutes. Procedures - Procedures Procedures: Medication Management
== END 2019-04-06 13:03 | disposition home or self-care (01) | DRG 753 ==
LOC: EMEROOARM 12:05 → 1ANU 17:50
PROVIDERS: ADMIT Psychiatry & Neurology Psychiatry; ATTEND Psychiatry & Neurology Psychiatry

== ENCOUNTER 2021-04-03 06:25 | Observation (INO) ==
[2021-04-03] MEDS ORDERED: Ondansetron 4 MG/2 ML VIAL IVP ONE (06:43)
[2021-04-03] MEDS ORDERED: Naloxone 0.4 MG/ML INJ IVP ONE (07:06)
[2021-04-03 07:21] LABS: Basophils # 0.1 K/mcL (0.0-0.2); Basophils % 0.3 %; Hematocrit 47.6 % (35.3-44.9); Hemoglobin 15.8 g/dL (11.5-15.4); Immature Granulocytes % 1.8 % (0-4); Lymphocytes % 3.1 %; Mean Corpuscular HGB Conc 33.2 g/dL (31.6-35.5); Mean Corpuscular Hemoglobin 30.6 pg (28.0-33.3); Mean Corpuscular Volume 92.2 fL (83.0-100.0); Mean Platelet Volume 9.9 fL (9.4-12.4); Monocytes % 5.1 %; Platelet Count 475 K/mcL (140-400); Red Blood Count 5.16 M/mcL (3.82-4.97); Red Cell Distribution Width 12.9 % (11.5-14.5); Segmented Neutrophils % 89.7 %
[2021-04-03 07:25] LABS: Monocytes # 1.7 K/mcL (0.0-1.3); White Blood Count 32.3 K/mcL (4.3-11.1)
[2021-04-03 07:37] LABS: Alanine Aminotransferase 52 Units/L (7-52); Albumin/Globulin Ratio 1.3 (1.1-2.2); Alkaline Phosphatase 81 Units/L (34-104); Aspartate Amino Transferase 46 Units/L (13-39); BUN/Creatinine Ratio 12 (6-26); Bilirubin,Total 0.4 mg/dL (0.3-1.0); Blood Urea Nitrogen 12 mg/dL (6-20); Calcium 9.3 mg/dL (8.6-10.3); Carbon Dioxide 29 mEq/L (23-29); Chloride 105 mEq/L (98-107); Globulin 3.9 g/dL (2.4-3.5); Glucose 82 mg/dL (70-105); Lipase 23 Units/L (11-82); Osmolality,Calculated 295 (280-300); Potassium 3.4 mEq/L (3.5-5.1); Sodium 143 mEq/L (136-145); Total Protein 8.9 g/dL (6.4-8.9); eGFR For African Americans > 60 (> 60); eGFR For Non-African Americans > 60 (> 60)
[2021-04-03] MEDS ORDERED: Piperacillin/Tazobactam 3.375 GM in Water for inj. (sterile) 20 ML IVP ONE (08:00)
[2021-04-03 08:44] LABS: Amorphous Sediment,Urine Few per hpf (None-Few); Bacteria,Urine Few per hpf (None-Few); Bilirubin,Urine Negative (Negative); Blood,Urine Trace (Negative); Clarity,Urine Turbid (Clear); Color,Urine Light-Yellow (Yellow); Glucose,Urine (UA) >=1000 mg/dL (Normal); Hyaline Casts,Urine Few per lpf (None Seen); Ketones,Urine Negative (Negative); Leukocyte Esterase,Urine Small (Negative); Mucus,Urine Few per lpf (None-Few); Nitrite,Urine Positive (Negative); PH,Urine 5.5 pH Units (5.0-8.0); Protein,Urine 30 mg/dL (Neg-Trace); RBC,Urine 0-3 per hpf (0-3); Specific Gravity,Urine 1.012 (1.010-1.025); Squamous Epithelial Cell,Urine Few per hpf (None-Few); Urobilinogen,Urine Normal (Normal)
[2021-04-03 08:48] LABS: Acetaminophen < 10 mcg/mL (10-20); Salicylate < 2.5 mg/dL (15.0-30.0)
[2021-04-03 08:52] LABS: Amphetamine Screen,Urine Positive ng/mL (Cutoff=1000); Barbiturate Screen,Urine Negative ng/mL (Cutoff=200); Benzodiazepines Screen,Urine Negative ng/mL (Cutoff=200); Cannabinoid Screen,Urine Positive ng/mL (Cutoff = 50); Cocaine Screen,Urine Negative ng/mL (Cutoff= 300); Opiate Screen,Urine Negative ng/mL (Cutoff=300); Phencyclidine Screen,Urine Negative ng/mL (Cutoff=25)
[2021-04-03] MEDS: 0.9 % Sodium Chloride 1,000 ML IVC SCH ×3 (08:59→10:48)
[2021-04-03 09:48] LABS: Alanine Aminotransferase 46 Units/L (7-52); Albumin 4.4 g/dL (3.5-5.7); Albumin/Globulin Ratio 1.2 (1.1-2.2); Alkaline Phosphatase 72 Units/L (34-104); Aspartate Amino Transferase 44 Units/L (13-39); Bilirubin,Indirect 0.3 mg/dL (0.0-1.0); Bilirubin,Total 0.3 mg/dL (0.3-1.0); Globulin 3.7 g/dL (2.4-3.5); Magnesium 2.1 mg/dL (1.6-2.6); Phosphorous 2.8 mg/dL (2.7-4.5); Total Protein 8.1 g/dL (6.4-8.9)
[2021-04-03 10:13] LABS: Ethanol < 10 mg/dL (Less than 10); Troponin I 0.08 ng/mL (< 0.04)
[2021-04-03] MEDS ORDERED: Ondansetron 4 MG/2 ML VIAL IVP PRN (11:18)
[2021-04-03] MEDS ORDERED: Naloxone 0.4 MG/ML INJ IVP PRN (11:18)
[2021-04-03] MEDS ORDERED: Acetaminophen 325 MG TABLET PO PRN (11:18)
[2021-04-03] MEDS ORDERED: Potassium Chloride Elixir 20 MEQ/15 ML UDC PO ONE (11:21)
[2021-04-03] MEDS ORDERED: Perflutren Lipid Microsphere 1.3 ML in 0.9 % Sodium Chloride 8.7 ML IVP PRN (11:28)
[2021-04-03] MEDS: cefTRIAXone 1,000 MG in Water for inj. (sterile) 10 ML IVP SCH (13:34)
[2021-04-03 15:25] LABS: Basophils % 0.2 %; Eosinophils % 0.2 %; Hematocrit 36.9 % (35.3-44.9); Immature Granulocytes % 0.6 % (0-4); Lymphocytes % 10.6 %; Mean Corpuscular Hemoglobin 29.9 pg (28.0-33.3); Mean Corpuscular Volume 93.4 fL (83.0-100.0); Mean Platelet Volume 10.4 fL (9.4-12.4); Monocytes # 1.1 K/mcL (0.0-1.3); Monocytes % 5.6 %; Neutrophils # 15.5 K/mcL (1.6-8.9); Platelet Count 348 K/mcL (140-400); Red Blood Count 3.95 M/mcL (3.82-4.97); Segmented Neutrophils % 82.8 %; White Blood Count 18.7 K/mcL (4.3-11.1)
[2021-04-03 15:28] LABS: Hemoglobin 11.8 g/dL (11.5-15.4)
[2021-04-03] MEDS ORDERED: 0.9 % Sodium Chloride 1,000 ML IV ONE (15:58)
[2021-04-03] MEDS: *HR* Heparin 5,000 UNIT/ML VIAL SQ SCH (17:03)
[2021-04-04 05:15] LABS: Basophils # 0.1 K/mcL (0.0-0.2); Basophils % 0.5 %; Eosinophils # 0.2 K/mcL (0.0-0.6); Eosinophils % 1.5 %; Hematocrit 36.1 % (35.3-44.9); Hemoglobin 11.9 g/dL (11.5-15.4); Immature Granulocytes % 0.3 % (0-4); Lymphocytes # 3.1 K/mcL (0.6-4.6); Lymphocytes % 24.3 %; Mean Corpuscular Hemoglobin 30.3 pg (28.0-33.3); Mean Corpuscular Volume 91.9 fL (83.0-100.0); Mean Platelet Volume 10.4 fL (9.4-12.4); Monocytes # 0.9 K/mcL (0.0-1.3); Monocytes % 7.3 %; Neutrophils # 8.4 K/mcL (1.6-8.9); Platelet Count 286 K/mcL (140-400); Red Blood Count 3.93 M/mcL (3.82-4.97); Red Cell Distribution Width 13.1 % (11.5-14.5); Segmented Neutrophils % 66.1 %; White Blood Count 12.6 K/mcL (4.3-11.1)
[2021-04-04] MEDS: *HR* Heparin 5,000 UNIT/ML VIAL SQ SCH (05:31)
[2021-04-04 05:35] LABS: BUN/Creatinine Ratio 9 (6-26); Blood Urea Nitrogen 6 mg/dL (6-20); Calcium 7.5 mg/dL (8.6-10.3); Carbon Dioxide 24 mEq/L (23-29); Chloride 111 mEq/L (98-107); Glucose 91 mg/dL (70-105); Osmolality,Calculated 291 (280-300); Potassium 3.4 mEq/L (3.5-5.1); Sodium 142 mEq/L (136-145); eGFR For African Americans > 60 (> 60); eGFR For Non-African Americans > 60 (> 60)
[2021-04-04] MEDS: cefTRIAXone 1,000 MG in Water for inj. (sterile) 10 ML IVP SCH (08:03)
[2021-04-04] MEDS ORDERED: Potassium Chloride Elixir 20 MEQ/15 ML UDC PO ONE (09:43)
[2021-04-04 15:53] VITALS: BP 107/87; PULSE 78; TEMP 98.1; O2SAT 94
== END 2021-04-04 17:05 | disposition home or self-care (01) ==
LOC: CDU 06:25 → EMEROOARM 06:25 → CDU 12:45
PROVIDERS: ADMIT Internal Medicine; ATTEND Internal Medicine

== ENCOUNTER 2021-09-01 04:49 | Inpatient (IN) ==
[2021-09-01 05:47] LABS: Basophils # 0.1 K/mcL (0.0-0.2); Basophils % 0.7 %; Eosinophils # 0.3 K/mcL (0.0-0.6); Eosinophils % 2.6 %; Hematocrit 45.1 % (35.3-44.9); Hemoglobin 15.4 g/dL (11.5-15.4); Immature Granulocytes % 0.2 % (0-4); Lymphocytes # 3.4 K/mcL (0.6-4.6); Lymphocytes % 28.2 %; Mean Corpuscular HGB Conc 34.1 g/dL (31.6-35.5); Mean Corpuscular Hemoglobin 31.4 pg (28.0-33.3); Mean Corpuscular Volume 91.9 fL (83.0-100.0); Mean Platelet Volume 10.1 fL (9.4-12.4); Monocytes # 0.9 K/mcL (0.0-1.3); Monocytes % 7.3 %; Neutrophils # 7.4 K/mcL (1.6-8.9); Platelet Count 366 K/mcL (140-400); Red Blood Count 4.91 M/mcL (3.82-4.97); Red Cell Distribution Width 12.4 % (11.5-14.5); White Blood Count 12.1 K/mcL (4.3-11.1)
[2021-09-01 05:54] LABS: Bacteria,Urine Moderate per hpf (None-Few); Bilirubin,Urine Negative (Negative); Blood,Urine Trace (Negative); Clarity,Urine Turbid (Clear); Color,Urine Light-Yellow (Yellow); Glucose,Urine (UA) Normal (Normal); Ketones,Urine Negative (Negative); Leukocyte Esterase,Urine Small (Negative); Mucus,Urine Few per lpf (None-Few); Nitrite,Urine Negative (Negative); Protein,Urine Negative (Neg-Trace); Specific Gravity,Urine 1.012 (1.010-1.025); Squamous Epithelial Cell,Urine Few per hpf (None-Few); Urobilinogen,Urine Normal (Normal)
[2021-09-01 06:06] LABS: Acetaminophen < 10 mcg/mL (10-20); BUN/Creatinine Ratio 14 (6-26); Blood Urea Nitrogen 10 mg/dL (6-20); Calcium 9.7 mg/dL (8.6-10.3); Carbon Dioxide 28 mEq/L (23-29); Chloride 106 mEq/L (98-107); Ethanol < 10 mg/dL (Less than 10); Glucose 85 mg/dL (70-105); Osmolality,Calculated 278 (280-300); Potassium 3.7 mEq/L (3.5-5.1); Salicylate < 2.5 mg/dL (15.0-30.0); Sodium 135 mEq/L (136-145); eGFR For African Americans > 60 (> 60); eGFR For Non-African Americans > 60 (> 60)
[2021-09-01 06:26] LABS: Influenza A PCR Negative (Negative); Influenza B PCR Negative (Negative); Resp. Syncytial Virus PCR Negative (Negative)
[2021-09-01 06:27] LABS: Amphetamine Screen,Urine Negative ng/mL (Cutoff=1000); Barbiturate Screen,Urine Negative ng/mL (Cutoff=200)
[2021-09-01 06:28] LABS: SARS-CoV-2 by PCR (In House) Negative (Negative)
[2021-09-01 06:29] LABS: Benzodiazepines Screen,Urine Negative ng/mL (Cutoff=300); Cannabinoid Screen,Urine Negative ng/mL (Cutoff = 50); Cocaine Screen,Urine Negative ng/mL (Cutoff= 300); Opiate Screen,Urine Negative ng/mL (Cutoff=300); Phencyclidine Screen,Urine Negative ng/mL (Cutoff=25)
[2021-09-01] MEDS ORDERED: *HR* LORazepam 2 MG/ML VIAL IM PRN (09:18)
[2021-09-01] MEDS ORDERED: *HR* LORazepam 1 MG TABLET PO PRN (09:18)
[2021-09-01] MEDS ORDERED: MOM Conc 10 ML UD.LIQ PO PRN (09:18)
[2021-09-01] MEDS ORDERED: Mag Hydrox/Al Hydrox/Simeth 30 ML UDC PO PRN (09:18)
[2021-09-01] MEDS ORDERED: Haloperidol Lactate 5 MG/ML VIAL IM PRN (09:18)
[2021-09-01] MEDS ORDERED: haloperidoL 5 MG TABLET PO PRN (09:18)
[2021-09-01] MEDS: Acetaminophen 325 MG TABLET PO PRN ×2 (10:34→19:01)
[2021-09-01] MEDS: hydrOXYzine pamoate 25 MG CAPSULE PO PRN (21:00)
[2021-09-01] MEDS: traZODone 50 MG TABLET PO PRN (21:00)
[2021-09-02] MEDS: Acetaminophen 325 MG TABLET PO PRN ×3 (08:56→20:34)
[2021-09-02] MEDS: hydrOXYzine pamoate 25 MG CAPSULE PO PRN ×3 (12:08→20:35)
[2021-09-02] MEDS: traZODone 50 MG TABLET PO PRN (20:35)
[2021-09-03] MEDS ORDERED: Neosporin OINT 15 GM TUBE TP PRN (09:10)
[2021-09-03] MEDS ORDERED: Paliperidone Palmitate 234 MG/1.5 ML SYRINGE IM SCH (09:15)
[2021-09-03] MEDS: Acetaminophen 325 MG TABLET PO PRN ×2 (10:31→16:57)
[2021-09-03] MEDS: hydrOXYzine pamoate 25 MG CAPSULE PO PRN ×2 (11:46→17:30)
[2021-09-03] MEDS ORDERED: Ibuprofen 400 MG TABLET PO PRN (18:40)
[2021-09-03] MEDS: traZODone 50 MG TABLET PO PRN (20:25)
[2021-09-04] MEDS: Acetaminophen 325 MG TABLET PO PRN (08:11)
[2021-09-04 08:16] VITALS: BP 111/64; PULSE 110; TEMP 97.5; O2SAT 99
== END 2021-09-04 10:10 | disposition home or self-care (01) | DRG 753 ==
LOC: EMEROOARM 04:49 → 1ANU 08:53
PROVIDERS: ADMIT Psychiatry & Neurology Psychiatry; ATTEND Psychiatry & Neurology Psychiatry

== ENCOUNTER 2021-12-12 18:04 | Inpatient (IN) ==
[2021-12-12] MEDS ORDERED: 0.9 % Sodium Chloride 1,000 ML IVC ONE (18:51)
[2021-12-12 19:26] LABS: Basophils # 0.1 K/mcL (0.0-0.2); Basophils % 0.9 %; Eosinophils # 0.2 K/mcL (0.0-0.6); Eosinophils % 2.3 %; Hematocrit 41.2 % (35.3-44.9); Hemoglobin 14.7 g/dL (11.5-15.4); Immature Granulocytes % 0.3 % (0-4); Lymphocytes # 2.7 K/mcL (0.6-4.6); Lymphocytes % 33.9 %; Mean Corpuscular HGB Conc 35.7 g/dL (31.6-35.5); Mean Corpuscular Hemoglobin 31.7 pg (28.0-33.3); Mean Platelet Volume 10.1 fL (9.4-12.4); Monocytes # 0.5 K/mcL (0.0-1.3); Neutrophils # 4.4 K/mcL (1.6-8.9); Platelet Count 315 K/mcL (140-400); Red Blood Count 4.63 M/mcL (3.82-4.97); Red Cell Distribution Width 11.9 % (11.5-14.5); Segmented Neutrophils % 56.6 %; White Blood Count 7.8 K/mcL (4.3-11.1)
[2021-12-12 19:38] LABS: Bacteria,Urine Few per hpf (None-Few); Bilirubin,Urine Negative (Negative); Blood,Urine Large (Negative); Clarity,Urine Turbid (Clear); Color,Urine Light-Yellow (Yellow); Glucose,Urine (UA) Normal (Normal); Ketones,Urine Negative (Negative); Leukocyte Esterase,Urine Moderate (Negative); Mucus,Urine Few per lpf (None-Few); Nitrite,Urine Negative (Negative); Protein,Urine Trace mg/dL (Neg-Trace); Specific Gravity,Urine 1.013 (1.010-1.025); Squamous Epithelial Cell,Urine Moderate per hpf (None-Few); Urobilinogen,Urine Normal (Normal)
[2021-12-12 19:50] LABS: Acetaminophen < 10 mcg/mL (10-20); BUN/Creatinine Ratio 13 (6-26); Blood Urea Nitrogen 12 mg/dL (6-20); Calcium 9.8 mg/dL (8.6-10.3); Carbon Dioxide 25 mEq/L (23-29); Chloride 106 mEq/L (98-107); Chol/HDL Ratio 4.2 (0-4.9); Cholesterol 129 mg/dL (< 200); Ethanol < 10 mg/dL (Less than 10); Glucose 93 mg/dL (70-105); HDL Cholesterol 31 mg/dL (40-59); LDL Cholesterol,Calculated 50 mg/dL (< 100); Osmolality,Calculated 291 (280-300); Potassium 3.3 mEq/L (3.5-5.1); Salicylate < 2.5 mg/dL (15.0-30.0); Sodium 141 mEq/L (136-145); Triglycerides 241 mg/dL (< 150); eGFR For African Americans > 60 (> 60); eGFR For Non-African Americans > 60 (> 60)
[2021-12-12 20:06] LABS: Amphetamine Screen,Urine Positive ng/mL (Cutoff=1000); Barbiturate Screen,Urine Negative ng/mL (Cutoff=200); Benzodiazepines Screen,Urine Negative ng/mL (Cutoff=200); Cannabinoid Screen,Urine Negative ng/mL (Cutoff = 50); Cocaine Screen,Urine Negative ng/mL (Cutoff= 300); Opiate Screen,Urine Negative ng/mL (Cutoff=300); Phencyclidine Screen,Urine Negative ng/mL (Cutoff=25)
[2021-12-12 21:47] LABS: Estimated Average Glucose 108 mg/dl; Hemoglobin A1C 5.4 %
[2021-12-13 01:08] LABS: Influenza A PCR Negative (Negative); Influenza B PCR Negative (Negative); Resp. Syncytial Virus PCR Negative (Negative)
[2021-12-13 01:14] LABS: SARS-CoV-2 by PCR (In House) Negative (Negative)
[2021-12-13] MEDS ORDERED: *HR* LORazepam 1 MG TABLET PO PRN (01:32)
[2021-12-13] MEDS ORDERED: Haloperidol Lactate 5 MG/ML VIAL IM PRN (01:32)
[2021-12-13] MEDS ORDERED: *HR* LORazepam 2 MG/ML VIAL IM PRN (01:32)
[2021-12-13] MEDS ORDERED: haloperidoL 5 MG TABLET PO PRN (01:32)
[2021-12-13] MEDS ORDERED: MOM Conc 10 ML UD.LIQ PO PRN (08:36)
[2021-12-13] MEDS ORDERED: Mag Hydrox/Al Hydrox/Simeth 30 ML UDC PO PRN (08:36)
[2021-12-13] MEDS: Acetaminophen 325 MG TABLET PO PRN ×2 (12:30→20:14)
[2021-12-13] MEDS: traZODone 50 MG TABLET PO PRN (20:13)
[2021-12-13] MEDS: hydrOXYzine pamoate 25 MG CAPSULE PO PRN (20:14)
[2021-12-14] MEDS: Acetaminophen 325 MG TABLET PO PRN (20:21)
[2021-12-14] MEDS: traZODone 50 MG TABLET PO PRN (20:21)
[2021-12-14] MEDS: hydrOXYzine pamoate 25 MG CAPSULE PO PRN (20:22)
[2021-12-15] MEDS: traZODone 50 MG TABLET PO PRN (21:22)
[2021-12-15] MEDS: hydrOXYzine pamoate 25 MG CAPSULE PO PRN (21:22)
[2021-12-15] MEDS: Acetaminophen 325 MG TABLET PO PRN (21:22)
[2021-12-16] MEDS: hydrOXYzine pamoate 25 MG CAPSULE PO PRN (21:13)
[2021-12-16] MEDS: traZODone 50 MG TABLET PO PRN (21:14)
[2021-12-16] MEDS: Acetaminophen 325 MG TABLET PO PRN (21:14)
[2021-12-17 09:10] VITALS: BP 112/81; PULSE 96; TEMP 97; O2SAT 98
== END 2021-12-17 12:05 | disposition home or self-care (01) | DRG 817 ==
LOC: EMEROOARM 18:04 → 1ANU 12-13 01:30
PROVIDERS: ADMIT Psychiatry & Neurology Psychiatry; ATTEND Psychiatry & Neurology Psychiatry

== ENCOUNTER 2021-12-22 01:43 | Inpatient (IN) ==
[2021-12-22 02:29] LABS: Bacteria,Urine Few per hpf (None-Few); Bilirubin,Urine Negative (Negative); Blood,Urine Small (Negative); Clarity,Urine Turbid (Clear); Color,Urine Light-Yellow (Yellow); Glucose,Urine (UA) Normal (Normal); Ketones,Urine Negative (Negative); Leukocyte Esterase,Urine Moderate (Negative); Mucus,Urine Few per lpf (None-Few); Nitrite,Urine Positive (Negative); Protein,Urine Trace mg/dL (Neg-Trace); Squamous Epithelial Cell,Urine Many per hpf (None-Few); Urobilinogen,Urine Normal (Normal)
[2021-12-22 02:36] LABS: Acetaminophen < 10 mcg/mL (10-20); Alanine Aminotransferase 23 Units/L (7-52); Albumin 4.3 g/dL (3.5-5.7); Albumin/Globulin Ratio 1.3 (1.1-2.2); Alkaline Phosphatase 64 Units/L (34-104); Aspartate Amino Transferase 15 Units/L (13-39); BUN/Creatinine Ratio 12 (6-26); Bilirubin,Indirect 0.2 mg/dL (0.0-1.0); Bilirubin,Total 0.2 mg/dL (0.3-1.0); Blood Urea Nitrogen 9 mg/dL (6-20); Calcium 9.4 mg/dL (8.6-10.3); Carbon Dioxide 27 mEq/L (23-29); Chloride 104 mEq/L (98-107); Ethanol < 10 mg/dL (Less than 10); Globulin 3.4 g/dL (2.4-3.5); Glucose 108 mg/dL (70-105); Osmolality,Calculated 289 (280-300); Potassium 3.8 mEq/L (3.5-5.1); Salicylate < 2.5 mg/dL (15.0-30.0); Sodium 140 mEq/L (136-145); Total Protein 7.7 g/dL (6.4-8.9); eGFR For African Americans > 60 (> 60); eGFR For Non-African Americans > 60 (> 60)
[2021-12-22 02:38] LABS: Amphetamine Screen,Urine Negative ng/mL (Cutoff=1000); Barbiturate Screen,Urine Negative ng/mL (Cutoff=200); Benzodiazepines Screen,Urine Negative ng/mL (Cutoff=200); Cannabinoid Screen,Urine Negative ng/mL (Cutoff = 50); Cocaine Screen,Urine Negative ng/mL (Cutoff= 300); Opiate Screen,Urine Negative ng/mL (Cutoff=300); Phencyclidine Screen,Urine Negative ng/mL (Cutoff=25)
[2021-12-22 02:39] LABS: Basophils # 0.1 K/mcL (0.0-0.2); Eosinophils # 0.3 K/mcL (0.0-0.6); Eosinophils % 3.2 %; Hematocrit 42.5 % (35.3-44.9); Hemoglobin 14.5 g/dL (11.5-15.4); Immature Granulocytes % 0.5 % (0-4); Lymphocytes # 3.3 K/mcL (0.6-4.6); Lymphocytes % 32.2 %; Mean Corpuscular HGB Conc 34.1 g/dL (31.6-35.5); Mean Corpuscular Hemoglobin 31.3 pg (28.0-33.3); Mean Corpuscular Volume 91.8 fL (83.0-100.0); Mean Platelet Volume 10.6 fL (9.4-12.4); Monocytes # 0.8 K/mcL (0.0-1.3); Monocytes % 7.9 %; Neutrophils # 5.7 K/mcL (1.6-8.9); Platelet Count 315 K/mcL (140-400); Red Blood Count 4.63 M/mcL (3.82-4.97); Red Cell Distribution Width 11.9 % (11.5-14.5); Segmented Neutrophils % 55.2 %; White Blood Count 10.4 K/mcL (4.3-11.1)
[2021-12-22] MEDS ORDERED: Sulfamethoxazole/Trimeth DS 1 EACH TABLET PO ONE (03:35)
[2021-12-22 04:54] LABS: Influenza A PCR Negative (Negative); Influenza B PCR Negative (Negative); Resp. Syncytial Virus PCR Negative (Negative)
[2021-12-22 06:29] LABS: SARS-CoV-2 by PCR (In House) Negative (Negative)
[2021-12-22] MEDS ORDERED: haloperidoL 5 MG TABLET PO PRN (06:52)
[2021-12-22] MEDS ORDERED: *HR* LORazepam 1 MG TABLET PO PRN (06:52)
[2021-12-22] MEDS ORDERED: Haloperidol Lactate 5 MG/ML VIAL IM PRN (06:52)
[2021-12-22] MEDS ORDERED: *HR* LORazepam 2 MG/ML VIAL IM PRN (06:52)
[2021-12-22] MEDS ORDERED: Ibuprofen 400 MG TABLET PO PRN (06:52)
[2021-12-22] MEDS: Nicotine 21 MG PATCH.TD24 TD SCH (09:15)
[2021-12-22] MEDS: hydrOXYzine pamoate 25 MG CAPSULE PO PRN ×2 (14:33→20:49)
[2021-12-22] MEDS: traZODone 50 MG TABLET PO PRN (20:49)
[2021-12-22] MEDS: Sulfamethoxazole/Trimeth DS 1 EACH TABLET PO SCH (20:49)
[2021-12-23] MEDS: Sulfamethoxazole/Trimeth DS 1 EACH TABLET PO SCH ×2 (10:03→20:40)
[2021-12-23] MEDS: Levothyroxine 25 MCG TABLET PO SCH (10:03)
[2021-12-23] MEDS: Nicotine 21 MG PATCH.TD24 TD SCH (10:03)
[2021-12-23 10:15] VITALS: O2SAT 99
[2021-12-23] MEDS: hydrOXYzine pamoate 25 MG CAPSULE PO PRN ×2 (19:05→20:40)
[2021-12-23] MEDS: traZODone 50 MG TABLET PO PRN ×2 (20:40→22:42)
[2021-12-24] MEDS: Sulfamethoxazole/Trimeth DS 1 EACH TABLET PO SCH (08:28)
[2021-12-24] MEDS: Levothyroxine 25 MCG TABLET PO SCH (08:28)
[2021-12-24] MEDS: Nicotine 21 MG PATCH.TD24 TD SCH (08:29)
[2021-12-24 09:33] VITALS: BP 112/81; PULSE 94; TEMP 96.7
== END 2021-12-24 10:55 | disposition home or self-care (01) | DRG 751 ==
LOC: EMEROOARM 01:43 → 1ANU 06:49
PROVIDERS: ADMIT Psychiatry & Neurology Psychiatry; ATTEND Psychiatry & Neurology Psychiatry